=== PATIENT | male | born 1945 | race Caucasian/White ===

== ENCOUNTER → 2017-09-18 13:53 | Outpatient (CLI) | payer MEDICARE, SELFPAY ==
[2017-09-22 20:18] LABS: Chromium, Plasma 0.7 mcg/L (< 1.3)
== END ==
PROVIDERS: Family Provider Family Medicine; PCP Family Medicine; Visit Provider Orthopaedic Surgery
DX: Z96.642 Presence of left artificial hip joint (principal); Z96.643 Presence of artificial hip joint, bilateral
CPT/HCPCS: 36415; 82495; 83018

== ENCOUNTER → 2017-09-24 14:41 | Outpatient (CLI) | payer MEDICARE, SELFPAY ==
--- NOTE | 2017-09-24 | DI.MRI.S_ITS ---
PROCEDURE: MR HIP LT WO CON INDICATIONS: Left hip pain TECHNIQUE: Noncontrast coronal T1 spin echo and STIR through the bony pelvis. Coronal and axial T2 fast spin echo with fat saturation, sagittal T1 spin echo, and oblique axial T2 fast spin echo with fat saturation through the hip. COMPARISON: [facility] [place], [place], XR PELVIS WITH BILATERAL LATERAL HIPS, 09/18/2017, 13:17. FINDINGS: Image quality: Suboptimal due to bilateral hip arthroplasty artifact. This is despite metallic artifact reduction pulse sequences. There is lower lumbar degenerative disc disease. No definite periarticular fluid collections are seen. No periarticular solid appearing foci. The synovium is not well visualized due to hardware artifact, however probably within normal limits on the right although completely obscured on the left. No definite marrow signal abnormality is seen. Muscle signal intensity within normal limits. Sacroiliac joints and pubis symphysis within normal limits. The bladder is unremarkable. Penile prosthesis, and associated intrapelvic reservoir. IMPRESSION: Limited evaluation due to severe hardware artifacts despite metallic artifact reduction pulse sequences. No definite periarticular solid or cystic lesion. The synovium is completely obscured. No definite abnormal adjacent marrow signal changes on T1 weighted pulse sequences. Dictated by: Alex Negrete M.D. on 09/24/2017 at 16:10 Approved by: Alex Negrete M.D. on 09/24/2017 at 16:25
== END ==
PROVIDERS: Family Provider Family Medicine; PCP Family Medicine; Visit Provider Orthopaedic Surgery
DX: M25.552 Pain in left hip (principal)
CPT/HCPCS: 73721

== ENCOUNTER → 2022-07-23 12:06 | Outpatient (CLI) | payer MEDICARE, OTHER, SELFPAY ==
--- NOTE | 2022-07-23 | DI.ECHO.S_ITS ---
[place] +---------+ [facility] +---------+ : : [address] : : : : [id number] : : : : Phone: [phone]+ Echocardiogram Report + + :Name: BARBARA LAURENT Study Date: 07/23/2022 Height: 72 in : :[facility] ReadingLocation: Weight: 320 lb : : Gender: Male BSA: 2.6 m2 : :: 1945 Age: 77 yrs BP: 148/66 mmHg: :Reason For Study: CHRONIC DIASTOLIC CONGESTIVE HEART FAILURE HR: 52 : :Ordering Physician: KONSTANTIN, : :YENIFER Performed By: SERGEY RUSSELL : :Referring: YENIFER HOFFMAN : + + Interpretation Summary 1) Mildly dilated left ventricle with normal systolic function (EF 55-60%). 2) There are no obvious focal wall motion abnormalities noted but poor endocardial definition reduces the sensitivity for the detection of such. 3) Mildly enlarged right ventricle with normal function. 4) No significant valvular abnormalities. 5) The right ventricular systolic pressure is estimated to be at least 44 mmHg based on an estimated right atrial pressure of 8 mm Hg. 6) No prior Echo available for comparison. Procedure: A two-dimensional transthoracic echocardiogram with color flow and Doppler was performed. The study quality was technically adequate. There is no prior echocardiogram noted for this patient. The patient was in normal sinus rhythm during the exam. The patient had frequent PVCs during the exam. Left Ventricle: The left ventricle is mildly dilated. There is normal left ventricular wall thickness. Left ventricular systolic function is normal. The ejection fraction is estimated to be 55-60%. There are no obvious focal wall motion abnormalities noted but poor endocardial definition reduces the sensitivity for the detection of such. Diastolic parameters suggest a relaxation abnormality of the left ventricle, consistent with probable normal filling pressures. Right Ventricle: The right ventricle is mildly dilated. The right ventricular systolic function is normal. Atria: Both atria are moderately dilated. There is no Doppler evidence for an interatrial shunt. Mitral Valve: Calcified mitral apparatus. The mitral valve leaflets appear mildly thickened, but open well. There is mild mitral regurgitation. Aortic Valve: The aortic valve is not well visualized. The aortic valve is mildly calcified. There is no aortic valve stenosis. No aortic regurgitation is present. Tricuspid Valve: The tricuspid valve is normal. There is mild tricuspid regurgitation. The right ventricular systolic pressure is estimated to be at least 44 mmHg based on an estimated right atrial pressure of 8 mm Hg. Pulmonic Valve: The pulmonic valve is not well visualized. There is no pulmonic valvular regurgitation. Great Vessels: The aortic root is normal size. The ascending aorta could not be visualized. The IVC is dilated (diameter is greater than 2.1 cm) yet it collapses greater than 50% with a sniff. This suggests a right atrial pressure of 8 mm Hg. Pericardium/ Pleura There is an anterior echo-free space consistent with a fat pad. There is no pleural effusion. MMode/2D Measurements & Calculations LVIDd: 5.7 cm LVOT diam: 2.1 cm LVIDs: 4.2 cm Ao root diam: 3.2 cm FS: 26.7 % IVSd: 0.90 cm LVPWd: 1.2 cm LV emmanuel. diameter/BSA (cm/m^2): 2.2 LV sys. diameter/BSA (cm/m^2): 1.6 LA A2 area: 30.2 cm2 RA long axis: 6.0 cm LA A4 area: 28.6 cm2 RA area: 25.4 cm2 LA length (vol): 6.5 cm RA vol: 91.5 ml LA vol: 111.7 ml RA : 35.2 ml/m2 LA vol index: 43.0 ml/m2 IVC diam: 2.3 cm TAPSE: 2.2 cm Doppler Measurements & Calculations Ao V2 max: 144.8 cm/sec LVOT Max Kashif: 107.1 cm/sec Ao V2 mean: 112.3 cm/sec LV V1 max P.6 mmHg Ao max P.4 mmHg LV V1 VTI: 26.1 cm Ao mean P.3 mmHg ANOOP(I,D): 2.8 cm2 Ao V2 VTI: 33.8 cm ANOOP(V,D): 2.7 cm2 sev ratio: 0.77 ANOOP indexed to BSA (cm^2/m^2): 1.1 MV E max kashif: 82.7 cm/sec TR max kashif: 300.3 cm/sec MV A max kashif: 103.9 cm/sec TR max P.1 mmHg MV E/A: 0.80 PA V2 max: 89.8 cm/sec Med Peak E' Kashif: 5.7 cm/sec PA V2 mean: 66.2 cm/sec E/E' med: 14.5 PA mean P.9 mmHg Lat Peak E' Kashif: 7.8 cm/sec PA pr(Accel): 41.3 mmHg E/E' lat: 10.7 E/e' average: 12.6 MV dec time: 0.29 sec SV(OT): 94.6 ml Reading Physician:04:46 PM
== END ==
PROVIDERS: Family Provider Family Medicine; PCP Family Medicine; Referring Provider Internal Medicine Cardiovascular Disease; Visit Provider Internal Medicine Cardiovascular Disease
DX: I50.32 Chronic diastolic (congestive) heart failure (principal); R06.09 Other forms of dyspnea; I08.1 Rheumatic disorders of both mitral and tricuspid valves
CPT/HCPCS: 93306

== ENCOUNTER 2022-08-08 09:40 | Inpatient (IN) | payer MEDICARE, OTHER, SELFPAY ==
[2022-08-08] VITALS (104 sets, daily range): BP systolic 132–212; BP diastolic 61–89; PULSE 50–92; RESP 9–27; TEMP 36.9; O2SAT 88–98; BMI 42.2
--- NOTE | 2022-08-08 09:48 | ED_ITS ---
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 Tablet) 10 mg PO Sa@0900 [facility] Last Admin: 08/10/22 12:03 Dose: 10 mg Documented By: JEAN Metoprolol Tartrate (Metoprolol Ir 25 Mg Tablet) 25 mg PO DAILY [facility] Last Admin: 08/12/22 09:07 Dose: Not Given Documented By: Admin: 08/11/22 16:03 Dose: Not Given Documented By: Admin: 08/10/22 08:49 Dose: 25 mg Documented By: Admin: 08/09/22 08:15 Dose: 25 mg Documented By: JEAN Naloxone HCl (Naloxone 0.4 Mg/Ml Vial) 0.2 mg IV Q2MIN PRN PRN Reason: Opiate Reversal (Montelukast 4 Mg (Tablet,Chewable)) 4 mg PO DAILY [facility] Last Admin: 08/12/22 09:06 Dose: Not Given Documented By: Admin: 08/11/22 10:04 Dose: Not Given Documented By: Admin: 08/10/22 08:39 Dose: Not Given Documented By: Admin: 08/09/22 08:16 Dose: Not Given Documented By: JEAN Ondansetron HCl (Ondansetron 4 Mg/2 Ml Inj) 4 mg IV Q8HR PRN PRN Reason: Nausea And Vomiting Oxycodone HCl (Oxycodone Ir 10 Mg Tablet) 20 mg PO Q4HR PRN PRN Reason: Pain, Severe (7-10) Last Admin: 08/12/22 03:29 Dose: 20 mg Documented By: Admin: 08/11/22 22:31 Dose: 20 mg Documented By: NADER Oxycodone HCl (Oxycodone Er 20 Mg Tab) 40 mg PO BID [facility] Last Admin: 08/12/22 10:02 Dose: 40 mg Documented By: MERCY Polyethylene Glycol (Polyethylene Glycol 3350 17 Gm Powd.Pack) 17 gm PO DAILY [facility] Last Admin: 08/12/22 08:46 Dose: 17 gm Documented By: Admin: 08/11/22 09:35 Dose: 17 gm Documented By: Admin: 08/10/22 08:49 Dose: 17 gm Documented By: Admin: 08/09/22 08:15 Dose: 17 gm Documented By: JAEN Sennosides (Sennosides 8.6 Mg Tablet) 17.2 mg PO BEDTIME [facility] Last Admin: 08/11/22 22:24 Dose: 17.2 mg Documented By: Admin: 08/10/22 21:17 Dose: 17.2 mg Documented By: Admin: 08/09/22 20:36 Dose: 17.2 mg Documented By: Admin: 08/08/22 21:38 Dose: 17.2 mg Documented By: AZUCENA Sodium Chloride (Sodium Chloride 0.9% Flush) 10 ml IV PRN PRN PRN Reason: Flush Sodium Chloride (Sodium Chloride 0.9% Flush) 10 ml IV BID [facility] Last Admin: 08/12/22 10:07 Dose: 10 ml Documented By: Admin: 08/11/22 22:24 Dose: 10 ml Documented By: Admin: 08/11/22 17:04 Dose: Not Given Documented By: BETINA Spironolactone (Spironolactone 25 Mg Tablet) 12.5 mg PO DAILY [facility] Last Admin: 08/12/22 08:42 Dose: 12.5 mg Documented By: Admin: 08/11/22 09:36 Dose: 12.5 mg Documented By: MERCY Discontinued Medications Acetaminophen (Acetaminophen 325 Mg Tablet) 650 mg PO Q6H PRN PRN Reason: Fever/Mild Pain (1-3) Last Admin: 08/11/22 10:14 Dose: 650 mg Documented By: Admin: 08/11/22 04:58 Dose: 650 mg Documented By: Admin: 08/09/22 20:36 Dose: 650 mg Documented By: Admin: 08/08/22 21:37 Dose: 650 mg Documented By: AZUCENA Enoxaparin Sodium (Enoxaparin 40 Mg/0.4 Ml Syringe) 40 mg SUBCUT DAILY [facility] Last Admin: 08/09/22 08:15 Dose: 40 mg Documented By: JEAN Hydromorphone HCl (Hydromorphone 0.5 Mg Inj) 0.5 mg IV NOW ONE Stop: 08/08/22 09:54 Last Admin: 08/08/22 10:02 Dose: 0.5 mg Documented By: PETR Hydromorphone HCl (Hydromorphone 0.5 Mg Inj) 0.5 mg IV NOW ONE Stop: 08/08/22 14:12 Last Admin: 08/08/22 14:20 Dose: 0.5 mg Documented By: ANCELMO Hydromorphone HCl (Hydromorphone 0.5 Mg Inj) 0.5 mg IV NOW ONE Stop: 08/08/22 18:31 Last Admin: 08/08/22 18:35 Dose: 0.5 mg Documented By: ANCELMO Hydromorphone HCl (Hydromorphone 0.5 Mg Inj) 0.5 mg IV Q4H PRN PRN Reason: Pain, Severe (7-10) Last Admin: 08/09/22 10:26 Dose: 0.5 mg Documented By: Admin: 08/09/22 06:28 Dose: 0.5 mg Documented By: Admin: 08/08/22 22:33 Dose: 0.5 mg Documented By: Hydromorphone HCl (Hydromorphone 0.5 Mg Inj) 0.5 mg IV Q3H PRN PRN Reason: Pain, Severe (7-10) Last Admin: 08/11/22 14:44 Dose: 0.5 mg Documented By: Admin: 08/11/22 05:30 Dose: 0.5 mg Documented By: Admin: 08/10/22 23:18 Dose: 0.5 mg Documented By: Admin: 08/10/22 11:59 Dose: 0.5 mg Documented By: Admin: 08/10/22 08:36 Dose: 0.5 mg Documented By: Admin: 08/10/22 00:55 Dose: 0.5 mg Documented By: Admin: 08/09/22 20:38 Dose: 0.5 mg Documented By: Admin: 08/09/22 14:12 Dose: 0.5 mg Documented By: JEAN Ceftriaxone Sodium 1,000 mg/ (Sodium Chloride) 100 mls @ 200 mls/hr IV Q24H [place] Stop: 08/15/22 06:14 Last Admin: 08/10/22 05:50 Dose: 200 mls/hr Documented By: Infusion: 08/09/22 07:45 Dose: 0 mls/hr Documented By: Admin: 08/09/22 06:28 Dose: 200 mls/hr Documented By: Magnesium Sulfate (Magnesium Sulfate) 2 gm in 50 mls @ 25 mls/hr IV NOW ONE Stop: 08/09/22 15:49 Last Infusion: 08/09/22 17:14 Dose: 0 mls/hr Documented By: JEAN Co-signed By: EDE Admin: 08/09/22 14:13 Dose: 25 mls/hr Documented By: JEAN Co-signed By: EDE Ibuprofen (Ibuprofen 600 Mg Tablet) 600 mg PO Q6H PRN PRN Reason: Fever/Mild Pain (1-3) Last Admin: 08/09/22 01:01 Dose: 600 mg Documented By: Ibuprofen (Ibuprofen 600 Mg Tablet) 600 mg PO Q6H [place]O Last Admin: 08/10/22 11:58 Dose: 600 mg Documented By: Admin: 08/10/22 05:49 Dose: 600 mg Documented By: Admin: 08/09/22 23:45 Dose: 600 mg Documented By: Admin: 08/09/22 17:30 Dose: 600 mg Documented By: Admin: 08/09/22 10:30 Dose: 600 mg Documented By: Admin: 08/09/22 05:52 Dose: Not Given Documented By: Ondansetron HCl (Ondansetron 4 Mg/2 Ml Inj) 4 mg IV NOW ONE Stop: 08/08/22 09:54 Last Admin: 08/08/22 10:02 Dose: 4 mg Documented By: PETR Oxycodone HCl (Oxycodone Ir 5 Mg Tablet) 5 mg PO Q3H PRN PRN Reason: Pain, Moderate (4-6) Last Admin: 08/11/22 10:11 Dose: 5 mg Documented By: Admin: 08/10/22 05:50 Dose: 5 mg Documented By: SANDIE Oxycodone HCl (Oxycodone Ir 10 Mg Tablet) 10 mg PO Q3H PRN PRN Reason: Pain, Severe (7-10) Last Admin: 08/11/22 12:47 Dose: 10 mg Documented By: Admin: 08/11/22 04:58 Dose: 10 mg Documented By: Admin: 08/10/22 21:22 Dose: 10 mg Documented By: Admin: 08/10/22 16:02 Dose: 10 mg Documented By: Admin: 08/10/22 08:53 Dose: 10 mg Documented By: Admin: 08/09/22 23:03 Dose: 10 mg Documented By: Admin: 08/09/22 07:40 Dose: 10 mg Documented By: Admin: 08/09/22 01:02 Dose: 10 mg Documented By: Admin: 08/08/22 21:38 Dose: 10 mg Documented By: AZUCENA Oxycodone HCl (Oxycodone Ir 10 Mg Tablet) 20 mg PO Q3H PRN PRN Reason: Pain, Severe (7-10) Vital Signs Vital signs: Vital Signs - 8 hr 08/08/22 12:00 08/08/22 12:01 08/08/22 12:01 Pulse Rate 67 68 Respiratory Rate 16 17 Blood Pressure 189/79 H Pulse Oximetry 94 93 Oxygen Delivery Method Nasal Cannula Nasal Cannula Oxygen Flow Rate 2 2 08/08/22 12:15 08/08/22 12:29 08/08/22 12:29 Pulse Rate 71 70 Respiratory Rate 18 19 Blood Pressure 165/71 H Pulse Oximetry 94 95 Oxygen Delivery Method Nasal Cannula Nasal Cannula Oxygen Flow Rate 2 2 08/08/22 12:30 08/08/22 12:30 08/08/22 12:45 Pulse Rate 71 69 Respiratory Rate 22 24 Blood Pressure 176/76 H Pulse Oximetry 96 94 Oxygen Delivery Method Oxygen Flow Rate 08/08/22 13:00 08/08/22 13:01 08/08/22 13:01 Pulse Rate 72 71 Respiratory Rate 18 19 Blood Pressure 187/79 H Pulse Oximetry 95 94 Oxygen Delivery Method Oxygen Flow Rate 08/08/22 13:15 08/08/22 13:30 08/08/22 13:31 Pulse Rate 69 68 67 Respiratory Rate 19 17 17 Blood Pressure Pulse Oximetry 93 96 96 Oxygen Delivery Method Oxygen Flow Rate 08/08/22 13:31 08/08/22 13:45 08/08/22 14:00 Pulse Rate 65 64 Respiratory Rate 17 17 Blood Pressure 153/67 H Pulse Oximetry 94 94 Oxygen Delivery Method Oxygen Flow Rate 08/08/22 14:01 08/08/22 14:01 08/08/22 14:15 Pulse Rate 67 69 Respiratory Rate 20 18 Blood Pressure 141/63 H Pulse Oximetry 93 95 Oxygen Delivery Method Oxygen Flow Rate 08/08/22 14:30 08/08/22 14:31 08/08/22 14:31 Pulse Rate 64 65 Respiratory Rate 14 11 L Blood Pressure 148/69 H Pulse Oximetry 94 93 Oxygen Delivery Method Nasal Cannula Oxygen Flow Rate 2 08/08/22 14:45 08/08/22 14:46 08/08/22 14:46 Pulse Rate 65 69 Respiratory Rate 16 Blood Pressure 157/70 H Pulse Oximetry 95 95 Oxygen Delivery Method Nasal Cannula Nasal Cannula Oxygen Flow Rate 2 2 08/08/22 15:00 08/08/22 15:01 08/08/22 15:01 Pulse Rate 65 66 Respiratory Rate 15 Blood Pressure 162/69 H Pulse Oximetry 95 95 Oxygen Delivery Method Nasal Cannula Nasal Cannula Oxygen Flow Rate 2 2 08/08/22 15:15 08/08/22 15:30 08/08/22 15:31 Pulse Rate 92 H 73 Respiratory Rate 12 Blood Pressure 161/71 H Pulse Oximetry 92 Oxygen Delivery Method Room Air Oxygen Flow Rate 08/08/22 15:31 08/08/22 15:45 08/08/22 15:46 Pulse Rate 73 70 71 Respiratory Rate 9 L 11 L 14 Blood Pressure Pulse Oximetry 93 91 90 L Oxygen Delivery Method Room Air Room Air Room Air Oxygen Flow Rate 08/08/22 15:46 08/08/22 15:50 08/08/22 15:55 Pulse Rate 70 70 Respiratory Rate 16 19 Blood Pressure 150/72 H Pulse Oximetry 88 L 88 L Oxygen Delivery Method Room Air Room Air Oxygen Flow Rate 08/08/22 16:00 08/08/22 16:01 08/08/22 16:01 Pulse Rate 68 67 Respiratory Rate Blood Pressure 150/70 H Pulse Oximetry 95 96 Oxygen Delivery Method Nasal Cannula Nasal Cannula Oxygen Flow Rate 2 2 08/08/22 16:05 08/08/22 16:10 08/08/22 16:15 Pulse Rate 67 66 Respiratory Rate Blood Pressure 142/63 H Pulse Oximetry 96 97 Oxygen Delivery Method Nasal Cannula Nasal Cannula Oxygen Flow Rate 2 2 08/08/22 16:15 08/08/22 16:20 08/08/22 16:25 Pulse Rate 68 64 66 Respiratory Rate Blood Pressure Pulse Oximetry 96 94 96 Oxygen Delivery Method Nasal Cannula Nasal Cannula Nasal Cannula Oxygen Flow Rate 2 2 2 08/08/22 16:30 08/08/22 16:30 08/08/22 16:35 Pulse Rate 64 69 Respiratory Rate 16 Blood Pressure 140/62 Pulse Oximetry 94 97 Oxygen Delivery Method Nasal Cannula Nasal Cannula Oxygen Flow Rate 2 2 08/08/22 16:40 08/08/22 16:45 08/08/22 16:45 Pulse Rate 65 64 Respiratory Rate 15 15 Blood Pressure 134/63 Pulse Oximetry 96 95 Oxygen Delivery Method Nasal Cannula Nasal Cannula Oxygen Flow Rate 2 2 08/08/22 16:50 08/08/22 16:55 08/08/22 17:00 Pulse Rate 65 65 Respiratory Rate 17 14 Blood Pressure 144/65 H Pulse Oximetry 96 96 Oxygen Delivery Method Oxygen Flow Rate 08/08/22 17:00 08/08/22 17:05 08/08/22 17:10 Pulse Rate 67 67 65 Respiratory Rate 15 17 15 Blood Pressure Pulse Oximetry 97 97 97 Oxygen Delivery Method Oxygen Flow Rate 08/08/22 17:15 08/08/22 17:15 08/08/22 17:20 Pulse Rate 64 64 Respiratory Rate 13 15 Blood Pressure 136/63 Pulse Oximetry 96 96 Oxygen Delivery Method Oxygen Flow Rate 08/08/22 17:25 08/08/22 17:30 08/08/22 17:30 Pulse Rate 65 63 Respiratory Rate 17 13 Blood Pressure 132/61 Pulse Oximetry 97 96 Oxygen Delivery Method Oxygen Flow Rate 08/08/22 17:35 08/08/22 17:40 08/08/22 17:45 Pulse Rate 68 74 Respiratory Rate 19 22 Blood Pressure 141/64 H Pulse Oximetry 97 96 Oxygen Delivery Method Oxygen Flow Rate 08/08/22 17:45 08/08/22 17:50 08/08/22 17:55 Pulse Rate 64 63 65 Respiratory Rate 16 14 16 Blood Pressure Pulse Oximetry 96 96 96 Oxygen Delivery Method Oxygen Flow Rate 08/08/22 18:00 08/08/22 18:00 08/08/22 18:05 Pulse Rate 63 63 Respiratory Rate 16 16 Blood Pressure 134/63 Pulse Oximetry 95 96 Oxygen Delivery Method Oxygen Flow Rate Medical Decision Making <Leodan Pierce, DO - Last Filed: 08/12/22 10:10> Lab Data 08/10/22 05:20 08/10/22 05:20 Labs: Lab Results 08/08/22 08/08/22 08/08/22 Range/Units 09:50 09:50 09:50 WBC 13.6 H (4.5-11.0) X10^3/uL RBC 4.12 L (4.5-5.9) X10^6/uL Hgb 13.8 (13.5-17.5) g/dL Hct 40.2 L (41-53) % MCV 97.6 (80-100) fL MCH 33.5 (26-34) PG MCHC 34.3 (30-36) % RDW 14.2 (11.6-14.8) % Plt Count 245 (150-400) X10^3/uL Neut % (Auto) 63.1 (50-75) % Lymph % (Auto) 25.4 (25-40) % [place] % (Auto) 7.7 (3-14) % Eos % (Auto) 2.9 (2-4) % Baso % (Auto) 0.9 (0-2) % Neut # (Auto) 8600 H (9005-1847) /uL Lymph # (Auto) 3400 (5955-2498) /uL [place] # (Auto) 1000 H (0-900) /uL Eos # (Auto) 400 (0-450) /uL Baso # (Auto) 100 (0-100) /uL Sodium 137 (137-145) mmol/L Potassium 4.3 (3.4-5.1) mmol/L Chloride 98 (98-107) mmol/L Carbon Dioxide 31 (22-32) mmol/L BUN 15 (9-20) mg/dL Creatinine 0.70 (0.66-1.25) mg/dL Estimated GFR > 60 (>60) mL/min BUN/Creatinine Ratio 21.4 (6-22) Glucose 172 H (80-110) mg/dL Lactate 3.0 H (0.7-2.1) mmol/L Calcium 8.9 (8.4-10.2) mg/dL Magnesium 1.8 (1.6-2.3) mg/dL Total Bilirubin 1.7 H (0.2-1.3) mg/dL AST 46 (17-59) IU/L ALT 34 (<50) IU/L Alkaline Phosphatase 42 (38-126) U/L Total Creatine Kinase 181 H (55-170) U/L CK-MB (CK-2) 0.94 (<2.37) ng/mL CK-MB (CK-2) Rel Index 0.5 L (1.5-5.0) % Troponin I < 0.012 (0.01-0.034) ng/mL Total Protein 7.8 (6.3-8.2) g/dL Albumin 4.3 (3.5-5.0) g/dL Globulin 3.5 (1.7-4.1) g/dL Albumin/Globulin Ratio 1.2 (1.0-2.8) Lipase 42 (23-300) U/L Urine RBC (0-5/HPF) Urine WBC (0-5/HPF) Urine Bacteria (None) 08/08/22 08/08/22 Range/Units 12:30 15:30 WBC (4.5-11.0) X10^3/uL RBC (4.5-5.9) X10^6/uL Hgb (13.5-17.5) g/dL Hct (41-53) % MCV (80-100) fL MCH (26-34) PG MCHC (30-36) % RDW (11.6-14.8) % Plt Count (150-400) X10^3/uL Neut % (Auto) (50-75) % Lymph % (Auto) (25-40) % [place] % (Auto) (3-14) % Eos % (Auto) (2-4) % Baso % (Auto) (0-2) % Neut # (Auto) (0436-5296) /uL Lymph # (Auto) (4577-2542) /uL [place] # (Auto) (0-900) /uL Eos # (Auto) (0-450) /uL Baso # (Auto) (0-100) /uL Sodium (137-145) mmol/L Potassium (3.4-5.1) mmol/L Chloride (98-107) mmol/L Carbon Dioxide (22-32) mmol/L BUN (9-20) mg/dL Creatinine (0.66-1.25) mg/dL Estimated GFR (>60) mL/min BUN/Creatinine Ratio (6-22) Glucose (80-110) mg/dL Lactate 1.3 (0.7-2.1) mmol/L Calcium (8.4-10.2) mg/dL Magnesium (1.6-2.3) mg/dL Total Bilirubin (0.2-1.3) mg/dL AST (17-59) IU/L ALT (<50) IU/L Alkaline Phosphatase (38-126) U/L Total Creatine Kinase (55-170) U/L CK-MB (CK-2) (<2.37) ng/mL CK-MB (CK-2) Rel Index (1.5-5.0) % Troponin I (0.01-0.034) ng/mL Total Protein (6.3-8.2) g/dL Albumin (3.5-5.0) g/dL Globulin (1.7-4.1) g/dL Albumin/Globulin Ratio (1.0-2.8) Lipase (23-300) U/L Urine RBC 0-1/hpf (0-5/HPF) Urine WBC 0-1/hpf (0-5/HPF) Urine Bacteria Moderate (10-30) H (None) Point of Care Testing Glucose POC 175 Urine Dip Bedside Urine Glucose Negative Bedside Urine Bilirubin - Negative Bedside Urine Ketone - Negative Urine Specific Cordell 1.015 Bedside Urine Occult Blood +/- Bedside Urine pH 6.0 Bedside Urine Protein +/- 15 Bedside Urine Urobilinogen - Negative Bedside Urine Nitrite + Positive Bedside Urine Leukocytes - Negative Esterase Point of care testing: Point of Care Testing Glucose POC 175 Urine Dip Bedside Urine Glucose Negative Bedside Urine Bilirubin - Negative Bedside Urine Ketone - Negative Urine Specific Cordell 1.015 Bedside Urine Occult Blood +/- Bedside Urine pH 6.0 Bedside Urine Protein +/- 15 Bedside Urine Urobilinogen - Negative Bedside Urine Nitrite + Positive Bedside Urine Leukocytes - Negative Esterase <Alyx Carroll MD - Last Filed: 08/08/22 20:12> Lab Data Labs: Lab Results 08/08/22 08/08/22 08/08/22 Range/Units 09:50 09:50 09:50 WBC 13.6 H (4.5-11.0) X10^3/uL RBC 4.12 L (4.5-5.9) X10^6/uL Hgb 13.8 (13.5-17.5) g/dL Hct 40.2 L (41-53) % MCV 97.6 (80-100) fL MCH 33.5 (26-34) PG MCHC 34.3 (30-36) % RDW 14.2 (11.6-14.8) % Plt Count 245 (150-400) X10^3/uL Neut % (Auto) 63.1 (50-75) % Lymph % (Auto) 25.4 (25-40) % [place] % (Auto) 7.7 (3-14) % Eos % (Auto) 2.9 (2-4) % Baso % (Auto) 0.9 (0-2) % Neut # (Auto) 8600 H (3113-6702) /uL Lymph # (Auto) 3400 (8648-2827) /uL [place] # (Auto) 1000 H (0-900) /uL Eos # (Auto) 400 (0-450) /uL Baso # (Auto) 100 (0-100) /uL Sodium 137 (137-145) mmol/L Potassium 4.3 (3.4-5.1) mmol/L Chloride 98 (98-107) mmol/L Carbon Dioxide 31 (22-32) mmol/L BUN 15 (9-20) mg/dL Creatinine 0.70 (0.66-1.25) mg/dL Estimated GFR > 60 (>60) mL/min BUN/Creatinine Ratio 21.4 (6-22) Glucose 172 H (80-110) mg/dL Lactate 3.0 H (0.7-2.1) mmol/L Calcium 8.9 (8.4-10.2) mg/dL Magnesium 1.8 (1.6-2.3) mg/dL Total Bilirubin 1.7 H (0.2-1.3) mg/dL AST 46 (17-59) IU/L ALT 34 (<50) IU/L Alkaline Phosphatase 42 (38-126) U/L Total Creatine Kinase 181 H (55-170) U/L CK-MB (CK-2) 0.94 (<2.37) ng/mL CK-MB (CK-2) Rel Index 0.5 L (1.5-5.0) % Troponin I < 0.012 (0.01-0.034) ng/mL Total Protein 7.8 (6.3-8.2) g/dL Albumin 4.3 (3.5-5.0) g/dL Globulin 3.5 (1.7-4.1) g/dL Albumin/Globulin Ratio 1.2 (1.0-2.8) Lipase 42 (23-300) U/L Urine RBC (0-5/HPF) Urine WBC (0-5/HPF) Urine Bacteria (None) 08/08/22 08/08/22 Range/Units 12:30 15:30 WBC (4.5-11.0) X10^3/uL RBC (4.5-5.9) X10^6/uL Hgb (13.5-17.5) g/dL Hct (41-53) % MCV (80-100) fL MCH (26-34) PG MCHC (30-36) % RDW (11.6-14.8) % Plt Count (150-400) X10^3/uL Neut % (Auto) (50-75) % Lymph % (Auto) (25-40) % [place] % (Auto) (3-14) % Eos % (Auto) (2-4) % Baso % (Auto) (0-2) % Neut # (Auto) (1175-1367) /uL Lymph # (Auto) (1195-1119) /uL [place] # (Auto) (0-900) /uL Eos # (Auto) (0-450) /uL Baso # (Auto) (0-100) /uL Sodium (137-145) mmol/L Potassium (3.4-5.1) mmol/L Chloride (98-107) mmol/L Carbon Dioxide (22-32) mmol/L BUN (9-20) mg/dL Creatinine (0.66-1.25) mg/dL Estimated GFR (>60) mL/min BUN/Creatinine Ratio (6-22) Glucose (80-110) mg/dL Lactate 1.3 (0.7-2.1) mmol/L Calcium (8.4-10.2) mg/dL Magnesium (1.6-2.3) mg/dL Total Bilirubin (0.2-1.3) mg/dL AST (17-59) IU/L ALT (<50) IU/L Alkaline Phosphatase (38-126) U/L Total Creatine Kinase (55-170) U/L CK-MB (CK-2) (<2.37) ng/mL CK-MB (CK-2) Rel Index (1.5-5.0) % Troponin I (0.01-0.034) ng/mL Total Protein (6.3-8.2) g/dL Albumin (3.5-5.0) g/dL Globulin (1.7-4.1) g/dL Albumin/Globulin Ratio (1.0-2.8) Lipase (23-300) U/L Urine RBC 0-1/hpf (0-5/HPF) Urine WBC 0-1/hpf (0-5/HPF) Urine Bacteria Moderate (10-30) H (None) Point of Care Testing Glucose POC 175 Urine Dip Bedside Urine Glucose Negative Bedside Urine Bilirubin - Negative Bedside Urine Ketone - Negative Urine Specific Cordell 1.015 Bedside Urine Occult Blood +/- Bedside Urine pH 6.0 Bedside Urine Protein +/- 15 Bedside Urine Urobilinogen - Negative Bedside Urine Nitrite + Positive Bedside Urine Leukocytes - Negative Esterase Point of care testing: Point of Care Testing Glucose POC 175 Urine Dip Bedside Urine Glucose Negative Bedside Urine Bilirubin - Negative Bedside Urine Ketone - Negative Urine Specific Cordell 1.015 Bedside Urine Occult Blood +/- Bedside Urine pH 6.0 Bedside Urine Protein +/- 15 Bedside Urine Urobilinogen - Negative Bedside Urine Nitrite + Positive Bedside Urine Leukocytes - Negative Esterase MDM Narrative Medical decision making narrative: CC: Intractable back pain, upper thoracic pain, hypoxia Complicating co-morbidities: Trauma with a fall down an incline and 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 Full evaluation at [facility] at the time. Intractable pain since. Additional medical problems include hypertension, hyperlipidemia, prior [place], COPD, sleep apnea and diabetes Data collected from: patient Social determinants of health that may influence the patients condition: Age, independent living Medical records reviewed: Records from [facility] Emergency Department for 07/31/2022 are available and reviewed Differential considered: Pulmonary contusion, pneumothorax, intra-abdominal bleeding, undiagnosed fractures, intractable pain post trauma Exam documented above, pertinent findings include: Significant T12 pain on palpation. Bruising and contusion over the upper left scapula, hypoactive bowel tones and mild bowel distention Lab Test results independently reviewed as above. Pertinent findings: CBC is minimally remarkable, mild leukocytosis at 13.6 without left shift. No significant anemia Chemistries are unremarkable Initial lactic acid was 3 and is down to 1.3 with hydration (patient has been having difficulty drinking doing 2 pain control over the last couple of days) Troponin is unremarkable no evidence of acute coronary syndrome Independently reviewed EKG Sinus rhythm at a rate of 72. He is having frequent PVCs Normal intervals, normal axis, no acute ischemic changes Imaging studies independently reviewed: CT of the chest abdomen pelvis shows a new T12 superior endplate compression fracture that is stable. No rib fractures thoracic injury, hemopneumothorax Consultations: Physical therapy consult was obtained in the emergency department. He was able to walk with significant assistance in using 2 crutches but due to pain physical therapy felt that discharge home would be unsafe. Treatments: Pain control, oxygen 430pm PT eval: was able to get up and walk with tenderness and significant difficulty with ambulation but after 20 minutes of being up oxygen saturations off room air were down to 87%. Last dose of pain medication was 2 hours prior to this evaluation. Patient uses 1 cane at baseline currently needing 2 canes for significantly decreased ambulatory effort. Physical therapy recommendation is admission. Given the decreased oxygen saturation after significant thoracic trauma 48 hours ago probability of more significant pulmonary contusion that appreciated on initial CT scan is likely. He is not significantly anemic, he does have bacteria in his urine without urinary tract symptoms. White blood cell count is elevated at 13.6 with neutrophils that only 63.1%. Discussion: Over the course of his emergency room stay the patient continued to have hypoxic episodes down into the mid 80s. This did not appear to be related to narcotic administration. Clearly is not tolerating the pain from the compression fracture, likely developing ileus related to his overall pain, significant splinting and developing hypoxemia as well. At this point discharge home is not feasible and patient will be admitted for pain control, physical therapy and will need incentive spirometry, supplemental oxygen and aggressive bowel regimen to avoid obstipation. Care is discussed with hospitalist and patient will be admitted. Patient is very pleased with current plan. Discharge Plan Departure Patient Disposition: Admitted as Observation Clinical Impression: Trauma, Adynamic ileus, Hypoxia Compression fracture of T12 vertebra Qualifiers: Encounter type: initial encounter Qualified Code(s): S22.080A - Wedge compression fracture of T11-T12 vertebra, initial encounter for closed fracture Contusion of left scapula Qualifiers: Encounter type: initial encounter Qualified Code(s): S40.012A - Contusion of left shoulder, initial encounter Admit Date/Time: 08/08/22 19:51 Admit Provider: Ilan Mccall
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
[2022-08-08 10:01] LABS: Add Manual Diff / Slide Review NO; Basophils Absolute Auto 100 /uL (0-100); Basophils Percent Auto 0.9 % (0-2); Eosinophils Absolute Auto 400 /uL (0-450); Eosinophils Percent Auto 2.9 % (2-4); Hematocrit 40.2 % (41-53); Hemoglobin 13.8 g/dL (13.5-17.5); Lymphocytes Absolute Auto 3400 /uL (1100-4500); Lymphocytes Percent Auto 25.4 % (25-40); Mean Corpuscular HGB Conc 34.3 % (30-36); Mean Corpuscular Hemoglobin 33.5 PG (26-34); Mean Corpuscular Volume 97.6 fL (80-100); Monocytes Absolute Auto 1000 /uL (0-900); Monocytes Percent Auto 7.7 % (3-14); Neutrophils Absolute Auto 8600 /uL (1500-7000); Neutrophils Percent Auto 63.1 % (50-75); Platelet Count 245 X10^3/uL (150-400); Red Blood Cell Count 4.12 X10^6/uL (4.5-5.9); Red Cell Distribution Width 14.2 % (11.6-14.8); White Blood Cell Count 13.6 X10^3/uL (4.5-11.0)
[2022-08-08] MEDS: HYDROMORPHONE 0.5 MG INJ IV ×4 (10:02→22:33)
[2022-08-08] MEDS: ONDANSETRON 4 MG/2 ML INJ IV (10:02)
[2022-08-08 10:14] LABS: Alanine Aminotransferase 34 IU/L (<50); Albumin 4.3 g/dL (3.5-5.0); Albumin Globulin Ratio 1.2 (1.0-2.8); Alkaline Phosphatase 42 U/L (38-126); Aspartate Aminotransferase 46 IU/L (17-59); BUN Creatinine Ratio 21.4 (6-22); Bilirubin Total 1.7 mg/dL (0.2-1.3); Blood Urea Nitrogen 15 mg/dL (9-20); Calcium 8.9 mg/dL (8.4-10.2); Carbon Dioxide 31 mmol/L (22-32); Chloride 98 mmol/L (98-107); Creatine Kinase 181 U/L (55-170); Estimated Glomerular Filt Rate > 60 mL/min (>60); Globulin 3.5 g/dL (1.7-4.1); Glucose 172 mg/dL (80-110); Lipase 42 U/L (23-300); Magnesium 1.8 mg/dL (1.6-2.3); Potassium 4.3 mmol/L (3.4-5.1); Sodium 137 mmol/L (137-145); Total Protein 7.8 g/dL (6.3-8.2)
[2022-08-08 10:17] LABS: HEMOLYSIS 53 (0-50)
[2022-08-08 10:24] LABS: Troponin I < 0.012 ng/mL (0.01-0.034)
[2022-08-08 10:30] LABS: CKMB % Relative Index 0.5 % (1.5-5.0); Creatine Kinase MB 0.94 ng/mL (<2.37)
[2022-08-08 11:57] LABS: Reflexed Lactate in 2 Hours Y
[2022-08-08 12:51] LABS: Lactate 2HR (Lactic Acid Rflx) 1.3 mmol/L (0.7-2.1)
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
[2022-08-08 16:07] LABS: Bacteria Urine Moderate (10-30); RBC Urine 0-1/HPF (0-5/HPF); WBC Urine 0-1/HPF (0-5/HPF)
[2022-08-08] MEDS: ACETAMINOPHEN 325 MG TABLET 650 MG PO (21:37)
[2022-08-08] MEDS: DOCUSATE 100 MG CAPSULE PO (21:38)
[2022-08-08] MEDS: OXYCODONE IR 10 MG TABLET PO (21:38)
[2022-08-08] MEDS: SENNOSIDES 8.6 MG TABLET 17.2 MG PO (21:38)
[2022-08-09] VITALS (9 sets, daily range): BP systolic 126–142; BP diastolic 46–83; PULSE 46–73; RESP 14–20; TEMP 35.9–36.8; O2SAT 91–97
[2022-08-09] MEDS: IBUPROFEN 600 MG TABLET PO ×4 (01:01→23:45)
[2022-08-09] MEDS: OXYCODONE IR 10 MG TABLET PO ×3 (01:02→23:03)
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
[2022-08-09] MEDS: HYDROMORPHONE 0.5 MG INJ IV ×4 (06:28→20:38)
[2022-08-09] MEDS: cefTRIAXone 1,000 MG in SODIUM CHLORIDE 0.9% 100 ML 200 MG IV (06:28)
[2022-08-09] MEDS: ATORVASTATIN 20 MG TABLET PO (08:15)
[2022-08-09] MEDS: DOCUSATE 100 MG CAPSULE PO ×2 (08:15→20:36)
[2022-08-09] MEDS: METOPROLOL IR 25 MG TABLET PO (08:15)
[2022-08-09] MEDS: polyethylene glycoL 3350 17 GM POWD.PACK PO (08:15)
[2022-08-09] MEDS: AMLODIPINE 5 MG TABLET PO (08:15)
[2022-08-09] MEDS: ENOXAPARIN 40 MG/0.4 ML SYRINGE SUBCUT ×2 (08:15→20:46)
[2022-08-09 08:57] LABS: Add Manual Diff / Slide Review NO; Basophils Absolute Auto 0 /uL (0-100); Basophils Percent Auto 0.3 % (0-2); Eosinophils Absolute Auto 300 /uL (0-450); Eosinophils Percent Auto 2.5 % (2-4); Hematocrit 38.8 % (41-53); Hemoglobin 13.3 g/dL (13.5-17.5); Lymphocytes Absolute Auto 2600 /uL (1100-4500); Mean Corpuscular HGB Conc 34.2 % (30-36); Mean Corpuscular Hemoglobin 33.3 PG (26-34); Mean Corpuscular Volume 97.3 fL (80-100); Monocytes Absolute Auto 1000 /uL (0-900); Monocytes Percent Auto 8.5 % (3-14); Neutrophils Absolute Auto 7800 /uL (1500-7000); Neutrophils Percent Auto 66.7 % (50-75); Platelet Count 228 X10^3/uL (150-400); Red Blood Cell Count 3.99 X10^6/uL (4.5-5.9); Red Cell Distribution Width 14.2 % (11.6-14.8); White Blood Cell Count 11.7 X10^3/uL (4.5-11.0)
[2022-08-09 09:13] LABS: BUN Creatinine Ratio 26.8 (6-22); Blood Urea Nitrogen 19 mg/dL (9-20); Calcium 8.5 mg/dL (8.4-10.2); Carbon Dioxide 33 mmol/L (22-32); Chloride 95 mmol/L (98-107); Estimated Glomerular Filt Rate > 60 mL/min (>60); Glucose 179 mg/dL (80-110); HEMOLYSIS < 15 (0-50); Potassium 4.4 mmol/L (3.4-5.1); Sodium 136 mmol/L (137-145)
[2022-08-09] MEDS: INSULIN LISPRO 100 UNIT/ML 3ML VIAL SUBCUT (11:38)
--- NOTE | 2022-08-09 12:33 | PT.IPTN ---
Physical Therapy Treatment Note M2 PT-IP Current Condition Start: 08/08/22 15:34 Freq: Status: Active Protocol: Document 08/08/22 15:34 ES (Rec: 08/08/22 15:57 ES [id number]) Physical Therapy Current Condition Current Condition Evaluation Date 08/08/22 Treatment Diagnosis Severe back pain Onset Date 08/06/22 M3 PT-IP Subjective Start: 08/08/22 15:34 Freq: Status: Active Protocol: Document 08/09/22 12:22 ES (Rec: 08/09/22 12:33 ES [id number]) Subjective Physical Therapy Visit Type Type Treatment Note Visit Start Time 11:06 Visit Stop Time 11:26 Total Visit Minutes 20 Number of VALVE GRINDER Visits 0 Physical Therapy Visit Comments Patient Comments Patient up in recliner. Patient reported the oxycodone didn't do much for the pain, but the dilaudid is working well and he received a dose prior to PT treatment. Patient agreeable to get up with PT, and requested to get back to bed at end of treatment. Therapy Pain Assessment Pain When Pain Assessed During Mobility Pain Present Pain Present Pain Reported Location Lower back Intensity 5 Scale Used Numeric (0 - 10) Description With Movement Pain Management Techniques Re-positioning,Timing of Activity with Medications M4 PT-IP Mobility and Gait Start: 08/08/22 15:34 Freq: Status: Active Protocol: Document 08/09/22 12:22 ES (Rec: 08/09/22 12:33 ES [id number]) PT-Bed Mobility Assessment Rolling Type of Rolling Log Rolling Level of Assist Minimal Assistance Sit to Supine Sit to Supine Minimal Assistance,Head of Bed Elevated,Bedrails Scooting Scooting Up and Down in Bed Independent PT-Transfer Assessment Sit to and From Stand Sit to and from Stand Standby Assistance,Use of Upper Extremities Equipment Transfer Assistive Device Gait Belt,Straight Cane Orthotic/Prosthetic Devices or Brace: No Transfers Transfer Destination Bed Transfer Technique Stand Step Pivot Transfer Ability Level of Assist Standby Assistance,Use of Upper Extremities Comments Mobility Comments Required extra time to complete each task due to pain . Used B canes per patient preference. Gait Assessment Gait Gait Assistance Required: Standby Assistance Distance (Feet) 35 Assistive Devices Assistive Device Gait Belt,Straight Cane Orthotic/Prosthetic Devices or Brace: No Gait Deviations General Gait Pattern Antalgic,Decreased Stride Length,Decreased Feet Clearance Factors Limiting Gait Function Factors Limiting Gait Function Pain Comments Gait Comments Ambulated with B canes per patient preference. Patient required extra time due to decreased prema and velocity 2/2 pain. SPO2 94% on 1L O2 during activity. Stair Climbing Assessment Comments Stair Climbing Comments Unable PT-Balance Assessment Sitting Balance and Reactions Static Sitting Balance Ability Good Dynamic Sitting Balance Ability Good Standing Balance and Reactions Static Standing Balance Ability Good Dynamic Standing Balance Ability Good Device Used B canes M5 PT-IP Objective Assessments Start: 08/08/22 15:34 Freq: Status: Active Protocol: Document 08/08/22 15:34 ES (Rec: 08/08/22 15:57 ES [id number]) Orientation Orientation/Cognition Level of Alertness Alert Orientation Name,Age,Birthday,Month,Date, Year,Day of Week,Place, Situation Language Function Ability No Deficits Noted Safety Awareness Understands Safety Issues Memory Description No Deficits Noted Gross Range of Motion Upper Extremity ROM Assessment Within Functional Limits Lower Extremity ROM Assessment Within Functional Limits Strength Upper Extremity Strength Assessment Within Functional Limits Lower Extremity Strength Assessment Within Functional Limits Comments Strength Comments Decreased core strength and ROM 2/2 back pain Coordination Assessment Gross Coordination Gross Coordination WNL Sensation Assessment Sensation Gross Sensation WNL M6 PT-IP Treatment Start: 08/08/22 15:34 Freq: Status: Active Protocol: Document 08/09/22 12:22 ES (Rec: 08/09/22 12:33 ES [id number]) Physical Therapy Treatment Education Education Provided Safety Other Treatments Other Treatment Performed Education on body mechanics during transfers and log rolling. M7 PT-IP Assessment and Plan Start: 08/08/22 15:34 Freq: Status: Active Protocol: Document 08/09/22 12:22 ES (Rec: 08/09/22 12:33 ES [id number]) PT Summary Assessment and Plan Potential Rehabilitation Potential Good Status of Condition at Evaluation Evolving Summary Impairments Pain,Bed Mobility,Transfers, Gait,Activity Tolerance Progress Towards Goals Progressing Toward Goals,Slow Progress due to Pain Assessment Summary Patient demonstrated mild improvement in activity tolerance though still ambulating less than household distances. His pain was slightly improved from yesterday. Will continue to benefit from PT to progress mobility including gait and stairs to be able to return home safely. Goals Bed Mobility Goal Independent Transfer Goal Independent,Cane Gait Goal Independent,Cane Gait Distance 50 ft Other Goals Patient will be able to ascend /descend 13 stairs with B canes with CGA. Days to Meet Goals 3 Frequency of Treatment Frequency Of Treatment Once a Day Treatment Plan Physical Therapy Treatment Plan Bed Mobility Training,Transfer Training,Gait Training, Discharge Planning, Neuromuscular Re-ed Other Recommendations and Next Treatment Progress gait, stairs Focus Recommendations To Nursing Amount of Assist Needed 1 Person Assist Discharge Recommendations PT Discharge Recommendations Home with Assistance Transportation Needs at Discharge Private Vehicle
--- NOTE | 2022-08-09 12:43 | DI.MRI.S_ITS ---
PROCEDURE: MR LUMBAR SPINE WO CON INDICATIONS: T12 fracture, unclear if acute or chronic TECHNIQUE: Noncontrast sagittal T1 spin echo and T2 fast echo, sagittal STIR, and T2 fast spin echo through the lumbar spine. In cases with scoliosis, additional coronal T2 fast spin echo may be performed. COMPARISON: [facility], CT, CT CHEST ABD PEL W CON, 08/08/2022, 10:24. FINDINGS: Image quality: Excellent. Alignment and Curvature: There is normal bony alignment. Bone Marrow: Marrow is of normal overall signal. A T12 compression deformity is again seen, with 20% loss of height anteriorly. There is mildly increased STIR signal seen within the superior aspect of this vertebral body. Spinal Cord: Conus medullaris terminates at the L1 level. Visualized cord demonstrates normal signal and size. Paraspinous Soft Tissues: No paravertebral masses. Within the posterior soft tissues, there is increased fluid seen posterior to the T12 level, which is best demonstrated on series 4, image 8. T11-T12: The disc height and disc signal are relatively well preserved. Mild disc bulge is seen, with a mild central disc protrusion. Bridging endplate osteophytes can be seen posteriorly, which are better demonstrated by CT. Mild facet joint hypertrophy is seen. There is mild right-sided and no significant left-sided neural foraminal narrowing. Moderate central canal narrowing is seen. T12-L1: The disc height and disk signal are relatively well-preserved. Mild to moderate disc bulge is seen. Bridging endplate osteophytes are seen posteriorly, which are better demonstrated by CT. Mild facet joint hypertrophy is seen. Moderate bilateral neural foraminal narrowing is seen, left worse than right. Moderate central canal narrowing is seen. L1-L2: The disc height is well-preserved. Loss of disc signal is seen at this level. Mild to moderate disc bulge is seen. Mild to moderate facet hypertrophy is seen. Mild to moderate bilateral neural foraminal narrowing is seen. Mild central canal narrowing is seen. L2-L3: The disc height is well-preserved. Loss of disc signal is seen at this level. Mild to moderate disc bulge is seen. Mild to moderate facet hypertrophy can be seen. There is at least moderate left-sided and moderate right-sided neural foraminal narrowing. Mild central canal narrowing is seen. L3-L4: The disc height is well-preserved. Loss of disc signal is seen at this level. Moderate generalized disc bulge is seen. There is a superimposed central disc protrusion. Moderate facet joint hypertrophy is seen. There is moderate to severe right-sided and at least moderate left-sided neural foraminal narrowing. There is a degree of compression seen upon the exiting nerve roots. Moderate central canal narrowing is seen. L4-L5: The disc height is well-preserved. Loss of disc signal is seen at this level. Moderate generalized disc bulge is seen. There is a superimposed central disc protrusion. There is moderate right-sided and [id number] left-sided facet hypertrophy. There is moderate to severe bilateral neural foraminal narrowing seen, with an associated a degree of compression seen upon the exiting nerve roots. Mild central canal narrowing is seen. L5-S1: The disc height is relatively well preserved. There is increased T2 weighted signal seen along this disc level. Moderate disc bulge is seen, which is eccentric to the left. Mild to moderate facet hypertrophy can be seen. There is at least moderate left-sided and moderate to severe right-sided neural foraminal narrowing. There is a degree of compression seen upon the exiting nerve roots. Mild to moderate central canal narrowing is seen, which is exacerbated by prominent epidural fat. IMPRESSION: A T12 fracture is seen. The appearance is most consistent with a subacute fracture, with mildly increased STIR signal. Abnormal fluid can be seen posteriorly at the T12 level, which is consistent with associated soft tissue injury. Please consider ligamentous injury. Multiple levels of significant degenerative change can be seen. Several sites of significant neural foraminal narrowing can be seen, with associated exiting nerve root compression. Bridging endplate osteophytes can be seen posteriorly at the T11-T12 and T12-L1 levels, which are better demonstrated on the prior CT. Dictated by: Joe Sebastian M.D. on 08/11/2022 at 14:11 Approved by: Joe Sebastian M.D. on 08/11/2022 at 14:18
[2022-08-09] MEDS: MAGNESIUM SULFATE 2 GM/50 ML PIGGYBACK IV (14:13)
--- NOTE | 2022-08-09 14:37 | PM.PN.1 ---
Subjective Subjective Interval history: Patient's back pain is only helped with IV dilaudid but it doesn't last 4 hours. He says he has pain with deep breaths in his back. HR on monitor 42 so EKG ordered. Exam Vital Signs (past 8 hours): - 08/09/22 07:48 08/09/22 07:53 08/09/22 11:44 Temperature 98.0 F Pulse Rate 73 Respiratory Rate 16 Blood Pressure 139/83 Pulse Oximetry 96 96 94 Oxygen Delivery Method Nasal Cannula Nasal Cannula Oxygen Flow Rate 2 2.5 08/09/22 14:15 Temperature 97.1 F L Pulse Rate 59 L Respiratory Rate 16 Blood Pressure 126/52 L Pulse Oximetry 97 Oxygen Delivery Method Oxygen Flow Rate Oxygen Delivery Method Nasal Cannula Oxygen Flow Rate 2.5 Narrative Exam Narrative: GEN: appears uncomfortable PULM: clear bilaterally CV: bradycardic, systolic murmur noted ABD: soft, nontender, nondistended, no organomegaly EXT: warm and well perfused with no edema NEURO: awake, alert, oriented with no focal deficits Objective Labs 08/09/22 08:45 08/09/22 08:45 Labs: Laboratory Results - last 24 hr 08/08/22 08/09/22 08/09/22 15:30 08:45 08:45 WBC 11.7 H RBC 3.99 L Hgb 13.3 L Hct 38.8 L MCV 97.3 MCH 33.3 MCHC 34.2 RDW 14.2 Plt Count 228 Neut % (Auto) 66.7 Lymph % (Auto) 22.0 L [place] % (Auto) 8.5 Eos % (Auto) 2.5 Baso % (Auto) 0.3 Neut # (Auto) 7800 H Lymph # (Auto) 2600 [place] # (Auto) 1000 H Eos # (Auto) 300 Baso # (Auto) 0 Sodium 136 L Potassium 4.4 Chloride 95 L Carbon Dioxide 33 H BUN 19 Creatinine 0.71 Estimated GFR > 60 BUN/Creatinine Ratio 26.8 H Glucose 179 H Calcium 8.5 Urine RBC 0-1/hpf Urine WBC 0-1/hpf Urine Bacteria Moderate (10-30) H PFSH Medical History BPPV (benign paroxysmal positional vertigo) Central stenosis of spinal canal Excessive daytime sleepiness Insomnia, persistent Obesity (BMI 30-39.9) Obstructive sleep apnea of adult Osteoarthritis Rheumatoid arthritis Family History Father Hypertension Diabetes mellitus CAD (coronary artery disease) Mother Diabetes mellitus Hypertension Social History marital status: household members: none lives independently: Yes caregiver/support person: No housing: house Smoking Status: Former smoker alcohol intake: former substance use type: does not use during the past year weight has: remained stable Type(s) of exercise: restricted ROM & activity Assessment & Plan Assessment & Plan narrative: 1. Acute hypoxemic respiratory failure -suspect secondary primarily to splinting with COPD and DEVORAH contributing -treat pain control as below -no acute COPD exacerbation -cpap for DEVORAH -wean oxygen as able -incentive spirometer ordered -continue montelukast -wean O2 as able 2. T12 compression fracture -suspect acute, secondary to trauma -no neurologic symptoms noted -pain is significant, will attempt multimodal approach with nsaids, tylenol, opiates, intransal calcitonin -if not improving may need consideration of procedural intervention -PT consult -bowel regimen ordered due to constipation, suspect from pain medications -lumbar MRI ordered to assess fracture and back pain further 3. Rheumatoid arthritis -on remicade 4. Hypertension -continue home medications -hold aspirin while giving frequent ibuprofen 5.Type 2 DM -hold oral meds -ordered insulin sliding scale 6. CAD with cardiomyopathy -hold aspirin, spironolactone for now 7. Possible UTI -has nitrates and wbcs on UA -no dysuria, but does have some urinary hesitancy -also leukcytosis noted on admission -ordered ceftriaxone -follow up cultures CODE: Full Proxy: yoan Garrido Dispo: Home pending pain control, weaning O2.
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
[2022-08-09] MEDS: SENNOSIDES 8.6 MG TABLET 17.2 MG PO (20:36)
[2022-08-09] MEDS: ACETAMINOPHEN 325 MG TABLET 650 MG PO (20:36)
[2022-08-10] VITALS (7 sets, daily range): BP systolic 127–132; BP diastolic 41–55; PULSE 54–72; RESP 18–20; TEMP 35.6–36.7; O2SAT 91–98
[2022-08-10] MEDS: HYDROMORPHONE 0.5 MG INJ IV ×4 (00:55→23:18)
[2022-08-10] MEDS: IBUPROFEN 600 MG TABLET PO ×2 (05:49→11:58)
[2022-08-10] MEDS: cefTRIAXone 1,000 MG in SODIUM CHLORIDE 0.9% 100 ML 200 MG IV (05:50)
[2022-08-10] MEDS: OXYCODONE IR 5 MG TABLET PO (05:50)
[2022-08-10 06:12] LABS: BUN Creatinine Ratio 35.9 (6-22); Blood Urea Nitrogen 23 mg/dL (9-20); Calcium 8.3 mg/dL (8.4-10.2); Carbon Dioxide 32 mmol/L (22-32); Chloride 98 mmol/L (98-107); Estimated Glomerular Filt Rate > 60 mL/min (>60); Glucose 130 mg/dL (80-110); HEMOLYSIS < 15 (0-50); Sodium 134 mmol/L (137-145)
[2022-08-10 06:13] LABS: Add Manual Diff / Slide Review NO; Basophils Absolute Auto 0 /uL (0-100); Basophils Percent Auto 0.3 % (0-2); Eosinophils Absolute Auto 300 /uL (0-450); Eosinophils Percent Auto 3.4 % (2-4); Hematocrit 35.4 % (41-53); Hemoglobin 12.3 g/dL (13.5-17.5); Lymphocytes Absolute Auto 3100 /uL (1100-4500); Lymphocytes Percent Auto 31.1 % (25-40); Mean Corpuscular HGB Conc 34.7 % (30-36); Mean Corpuscular Hemoglobin 33.5 PG (26-34); Mean Corpuscular Volume 96.5 fL (80-100); Monocytes Absolute Auto 900 /uL (0-900); Monocytes Percent Auto 8.4 % (3-14); Neutrophils Absolute Auto 5800 /uL (1500-7000); Neutrophils Percent Auto 56.8 % (50-75); Platelet Count 210 X10^3/uL (150-400); Red Blood Cell Count 3.67 X10^6/uL (4.5-5.9); Red Cell Distribution Width 13.7 % (11.6-14.8); White Blood Cell Count 10.1 X10^3/uL (4.5-11.0)
[2022-08-10] MEDS: DOCUSATE 100 MG CAPSULE PO ×2 (08:49→21:17)
[2022-08-10] MEDS: ATORVASTATIN 20 MG TABLET PO (08:49)
[2022-08-10] MEDS: polyethylene glycoL 3350 17 GM POWD.PACK PO (08:49)
[2022-08-10] MEDS: METOPROLOL IR 25 MG TABLET PO (08:49)
[2022-08-10] MEDS: AMLODIPINE 5 MG TABLET PO (08:49)
[2022-08-10] MEDS: ENOXAPARIN 40 MG/0.4 ML SYRINGE SUBCUT ×2 (08:49→21:17)
[2022-08-10] MEDS: OXYCODONE IR 10 MG TABLET PO ×3 (08:53→21:22)
--- NOTE | 2022-08-10 12:56 | PT.IPTN ---
Current Diagnoses Acute respiratory failure with hypoxia (08/08/22) Physical Therapy Treatment Note M2 PT-IP Current Condition Start: 08/08/22 15:34 Freq: Status: Active Protocol: Document 08/08/22 15:34 ES (Rec: 08/08/22 15:57 ES [id number]) Physical Therapy Current Condition Current Condition Evaluation Date 08/08/22 Treatment Diagnosis Severe back pain Onset Date 08/06/22 M3 PT-IP Subjective Start: 08/08/22 15:34 Freq: Status: Active Protocol: Document 08/10/22 12:45 KS (Rec: 08/10/22 13:57 KS [id number]) Subjective Physical Therapy Visit Type Type Treatment Note Visit Start Time 12:45 Visit Stop Time 12:56 Total Visit Minutes 11 Number of USER EXPERIENCE LEAD Visits 1 Therapy Pain Assessment Pain When Pain Assessed During Mobility Pain Present Pain Present Pain Reported Location Lower back Intensity 10 Scale Used Numeric (0 - 10) Pain Management Techniques Modification of Treatment M4 PT-IP Mobility and Gait Start: 08/08/22 15:34 Freq: Status: Active Protocol: Document 08/10/22 12:45 KS (Rec: 08/10/22 13:57 KS [id number]) PT-Transfer Assessment Comments Mobility Comments Pt in bed, reporting too much pain to mobilize. States he cannot even tolerate bed inclined d/t back pain. Able to complete LE exercises including ankle pumps, quad sets, glute sets, and heel slides. Gait Assessment Comments Gait Comments Unable to get OOB d/t pain. Stair Climbing Assessment Comments Stair Climbing Comments Did not assess M5 PT-IP Objective Assessments Start: 08/08/22 15:34 Freq: Status: Active Protocol: Document 08/08/22 15:34 ES (Rec: 08/08/22 15:57 ES [id number]) Orientation Orientation/Cognition Level of Alertness Alert Orientation Name,Age,Birthday,Month,Date, Year,Day of Week,Place, Situation Language Function Ability No Deficits Noted Safety Awareness Understands Safety Issues Memory Description No Deficits Noted Gross Range of Motion Upper Extremity ROM Assessment Within Functional Limits Lower Extremity ROM Assessment Within Functional Limits Strength Upper Extremity Strength Assessment Within Functional Limits Lower Extremity Strength Assessment Within Functional Limits Comments Strength Comments Decreased core strength and ROM 2/2 back pain Coordination Assessment Gross Coordination Gross Coordination WNL Sensation Assessment Sensation Gross Sensation WNL M6 PT-IP Treatment Start: 08/08/22 15:34 Freq: Status: Active Protocol: Document 08/10/22 12:45 KS (Rec: 08/10/22 13:57 KS [id number]) Physical Therapy Treatment Exercises Exercises Ankle Pumps,Gluteal Sets,Quad Sets,Heel Slides Other Treatments Other Treatment Performed Discussed importance of mobility, logroll, and SNF. M7 PT-IP Assessment and Plan Start: 08/08/22 15:34 Freq: Status: Active Protocol: Document 08/10/22 12:45 KS (Rec: 08/10/22 13:57 KS [id number]) PT Summary Assessment and Plan Potential Rehabilitation Potential Good Summary Impairments Pain,Bed Mobility,Transfers, Gait,Activity Tolerance Progress Towards Goals Slow Progress due to Pain Assessment Summary Pt unable to tolerate OOB mobility due to 10/10 back pain. Not even able to tolerate raised HOB. Did complete LE exercises, but c/o increased pain with majority of exercises as well. Not safe to go home at this time and will require SNF to improve functional mobility. Goals Bed Mobility Goal Independent Transfer Goal Independent,Cane Gait Goal Independent,Cane Gait Distance 50 ft Other Goals Patient will be able to ascend /descend 13 stairs with B canes with CGA. Days to Meet Goals 3 Frequency of Treatment Frequency Of Treatment Once a Day Treatment Plan Physical Therapy Treatment Plan Bed Mobility Training,Transfer Training,Gait Training, Discharge Planning, Neuromuscular Re-ed Other Recommendations and Next Treatment Progress gait, stairs Focus Recommendations To Nursing Amount of Assist Needed 1 Person Assist Discharge Recommendations PT Discharge Recommendations SNF Rehab Transportation Needs at Discharge Wheelchair/Cabulance
--- NOTE | 2022-08-10 14:18 | CM.DPC ---
DCP continued: Reviewed chart. Spoke with SISI/Yamile whom reports that current recommendtion is SNF. Met with patient explained role. Patient agreeable to short SNF stay. He resides in [place] and would like to go to [facility], [facility], or [facility]. Patient continues with pain and d/c date unknown. Anticipate within the next 24-48hrs. Per guidelines patient eligible for SNF on Thursday08-12-22. Called [facility] and provided referral. In addition faxed clinical to both [facility] and [facility]. P: Anticipate SNF when medically stable. [facility]
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
[2022-08-10] MEDS: SENNOSIDES 8.6 MG TABLET 17.2 MG PO (21:17)
[2022-08-10 23:51] LABS: COVID19 -Nasal RAPID Negative (Negative)
[2022-08-11] MEDS: ACETAMINOPHEN 325 MG TABLET 650 MG PO ×2 (04:58→10:14)
[2022-08-11] MEDS: OXYCODONE IR 10 MG TABLET PO ×2 (04:58→12:47)
[2022-08-11] MEDS: HYDROMORPHONE 0.5 MG INJ IV ×2 (05:30→14:44)
[2022-08-11 06:00] VITALS: BP 133/41; PULSE 45; RESP 10; TEMP 36.8; O2SAT 96
[2022-08-11] MEDS: ASPIRIN EC 81 MG TABLET PO (09:34)
[2022-08-11] MEDS: DOCUSATE 100 MG CAPSULE PO ×2 (09:34→22:24)
[2022-08-11] MEDS: ATORVASTATIN 20 MG TABLET PO (09:34)
[2022-08-11] MEDS: ENOXAPARIN 40 MG/0.4 ML SYRINGE SUBCUT ×2 (09:35→22:23)
[2022-08-11] MEDS: CALCITONIN,SALMON, NASAL SPRAY 1 SPRAYS NASAL (09:35)
[2022-08-11] MEDS: polyethylene glycoL 3350 17 GM POWD.PACK PO (09:35)
[2022-08-11] MEDS: SPIRONOLACTONE 25 MG TABLET 12.5 MG PO (09:36)
[2022-08-11] MEDS: OXYCODONE IR 5 MG TABLET PO (10:11)
[2022-08-11 10:45] VITALS: O2SAT 94
--- NOTE | 2022-08-11 10:49 | PC.NURSE ---
Patient is alert and oriented x4. His blood sugar this am is 115, no insulin needed. He states that his pain is 5/10. Given 1 oxycodone and some tylenol according to pain scale. Up with one person assist and two canes to void. He is lying on his left side. Patient is to have an MRI today but we are waiting on a card that describes his penile pump. Family member or friend will bring this over hopefully soon, will also remind patient.
--- NOTE | 2022-08-11 11:43 | PC.NURSE ---
Patient given pain medication, he asked for something iv but he was sleeping. Will continue to check on patient and his pain level.
[2022-08-11] MEDS: INSULIN LISPRO 100 UNIT/ML 3ML VIAL SUBCUT (12:29)
[2022-08-11] MEDS: FUROSEMIDE 40 MG TABLET PO (12:48)
[2022-08-11 12:57] VITALS: BP 148/76; PULSE 52; RESP 20; TEMP 36.1; O2SAT 93
--- NOTE | 2022-08-11 13:20 | PT.IPTN ---
Current Diagnoses Acute respiratory failure with hypoxia (08/08/22) Physical Therapy Treatment Note M2 PT-IP Current Condition Start: 08/08/22 15:34 Freq: Status: Active Protocol: Document 08/08/22 15:34 ES (Rec: 08/08/22 15:57 ES [id number]) Physical Therapy Current Condition Current Condition Evaluation Date 08/08/22 Treatment Diagnosis Severe back pain Onset Date 08/06/22 M3 PT-IP Subjective Start: 08/08/22 15:34 Freq: Status: Active Protocol: Document 08/11/22 13:56 TS (Rec: 08/11/22 14:31 TS [id number]) Subjective Physical Therapy Visit Type Type Treatment Note Visit Start Time 13:20 Visit Stop Time 13:53 Total Visit Minutes 23 Number of ORIENTAL RUG REPAIRER Visits 2 Physical Therapy Visit Comments Patient Comments Pt reports he's in some pain but just had some meds and feeling better. Patient Goals To have less pain Therapy Pain Assessment Pain When Pain Assessed During Mobility Pain Present Pain Present Pain Reported Location Lower back Intensity 5 Scale Used Numeric (0 - 10) Description Aching Pain Management Techniques Modification of Treatment M4 PT-IP Mobility and Gait Start: 08/08/22 15:34 Freq: Status: Active Protocol: Document 08/11/22 13:56 TS (Rec: 08/11/22 14:31 TS [id number]) PT-Bed Mobility Assessment Rolling Type of Rolling Log Rolling Level of Assist Standby Assistance Supine to Sit Supine to Sit Standby Assistance,Head of Bed Elevated Scooting Scooting to Edge of Bed Standby Assistance PT-Transfer Assessment Sit to and From Stand Sit to and from Stand Standby Assistance,Use of Upper Extremities Equipment Transfer Assistive Device Gait Belt,Straight Cane Orthotic/Prosthetic Devices or Brace: No Comments Mobility Comments Pt found resting in bed, agreeable to PT session. Logroll with increased effort, HOB elevated 30D SBA. Supine to sit SBA with increaed effort, LUE single point cane for uprighting trunk. Sit to stand x1 SBA with bilateral SPC. Ambulated ~10' to toilet SBA with bilateral SPC. Sit to stand x1 from toilet SBA with FFW/handrail assist. Pt ambulated ~40' SBA with bilateral SPC slow/cautious ankur to gait, no LOB or buckling. Stand to sit in chair with BUE support on arms of chair. Pt was left in chair with call light nearby, all needs met, Rn notified. Gait Assessment Gait Gait Assistance Required: Standby Assistance Distance (Feet) 50 Assistive Devices Assistive Device Gait Belt,Straight Cane Orthotic/Prosthetic Devices or Brace: No Gait Deviations General Gait Pattern Antalgic,Decreased Stride Length,Decreased Feet Clearance Factors Limiting Gait Function Factors Limiting Gait Function Pain Comments Gait Comments See mobility comments. Stair Climbing Assessment Comments Stair Climbing Comments Did not assess PT-Balance Assessment Sitting Balance and Reactions Static Sitting Balance Ability Good Dynamic Sitting Balance Ability Good Standing Balance and Reactions Static Standing Balance Ability Good Dynamic Standing Balance Ability Good Device Used B canes M5 PT-IP Objective Assessments Start: 08/08/22 15:34 Freq: Status: Active Protocol: Document 08/08/22 15:34 ES (Rec: 08/08/22 15:57 ES [id number]) Orientation Orientation/Cognition Level of Alertness Alert Orientation Name,Age,Birthday,Month,Date, Year,Day of Week,Place, Situation Language Function Ability No Deficits Noted Safety Awareness Understands Safety Issues Memory Description No Deficits Noted Gross Range of Motion Upper Extremity ROM Assessment Within Functional Limits Lower Extremity ROM Assessment Within Functional Limits Strength Upper Extremity Strength Assessment Within Functional Limits Lower Extremity Strength Assessment Within Functional Limits Comments Strength Comments Decreased core strength and ROM 2/2 back pain Coordination Assessment Gross Coordination Gross Coordination WNL Sensation Assessment Sensation Gross Sensation WNL M6 PT-IP Treatment Start: 08/08/22 15:34 Freq: Status: Active Protocol: Document 08/11/22 13:56 TS (Rec: 08/11/22 14:31 TS [id number]) Physical Therapy Treatment Exercises Exercises Ankle Pumps,Gluteal Sets,Quad Sets,Heel Slides Education Education Provided Safety M7 PT-IP Assessment and Plan Start: 08/08/22 15:34 Freq: Status: Active Protocol: Document 08/11/22 13:56 TS (Rec: 08/11/22 14:31 TS [id number]) PT Summary Assessment and Plan Potential Rehabilitation Potential Good Summary Impairments Pain,Bed Mobility,Transfers, Gait,Activity Tolerance Progress Towards Goals Progressing Toward Goals Assessment Summary Pt progressed to logroll SBA with HOB elevated, demonstrates good carryover from previous session and progressed his ambulation to ~ 50' in room SBA with bilateral cane. Pt requires increased effort with mobility this session due to pain, SOB and decreased activity tolerance. PT recommends SNF to progress bed mobility, funcitonal mobility, transfers, gait and increased activity tolerance. Goals Bed Mobility Goal Independent Transfer Goal Independent,Cane Gait Goal Independent,Cane Gait Distance 50 ft Other Goals Patient will be able to ascend /descend 13 stairs with B canes with CGA. Days to Meet Goals 3 Frequency of Treatment Frequency Of Treatment Once a Day Treatment Plan Physical Therapy Treatment Plan Bed Mobility Training,Transfer Training,Gait Training, Discharge Planning, Neuromuscular Re-ed Other Recommendations and Next Treatment Progress gait, stairs Focus Recommendations To Nursing Amount of Assist Needed Standby Assistance,1 Person Assist Discharge Recommendations PT Discharge Recommendations SNF Rehab Transportation Needs at Discharge Wheelchair/Cabulance
--- NOTE | 2022-08-11 16:00 | PM.PN.1 ---
Subjective Subjective Interval history: Continues to have uncontrolled pain today, previous has been on 20 mg oxycodone after joint surgeries. Will increase to 20 mg q4 along with IV for breakthrough, start scheduled tylenol, gabapentin, and lidocaine patch. Exam Vital Signs (past 8 hours): - 08/11/22 10:45 08/11/22 12:57 Temperature 96.9 F L Pulse Rate 52 L Respiratory Rate 20 Blood Pressure 148/76 H Pulse Oximetry 94 93 Oxygen Delivery Method Room Air Oxygen Flow Rate 0 Oxygen Delivery Method Room Air Oxygen Flow Rate 0 Narrative Exam Narrative: Gen: alert Lungs: clear, bruising noted on shoulder blades CV: regular Ext: no edema Neuro: nl speech and affect Objective Labs 08/10/22 05:20 08/10/22 05:20 Labs: Laboratory Results - last 24 hr 08/10/22 23:18 SARS-CoV-2 (PCR) Negative [facility] Medical History BPPV (benign paroxysmal positional vertigo) Central stenosis of spinal canal Excessive daytime sleepiness Insomnia, persistent Obesity (BMI 30-39.9) Obstructive sleep apnea of adult Osteoarthritis Rheumatoid arthritis Family History Father Hypertension Diabetes mellitus CAD (coronary artery disease) Mother Diabetes mellitus Hypertension Social History marital status: household members: none lives independently: Yes caregiver/support person: No housing: house Smoking Status: Former smoker alcohol intake: former substance use type: does not use during the past year weight has: remained stable Type(s) of exercise: restricted ROM & activity Assessment & Plan Assessment & Plan narrative: 1. Acute hypoxemic respiratory failure, resolved -suspect secondary primarily to splinting with COPD and DEVORAH contributing -treat pain control as below -no acute COPD exacerbation -cpap for DEVORAH -incentive spirometer ordered -continue montelukast -Goal O2 >89%, no longer on supplemental therapy today. 2. T12 compression fracture -suspect acute, secondary to trauma -pain is significant, will attempt multimodal approach with tylenol, opiates, lidocaine patch. Will need to increase today. -if not improving may need consideration of procedural intervention -PT consult, recommending SNF rehab -bowel regimen ordered due to constipation, suspect from pain medications - cont Miralax, senna, judd -MRI with mild - moderate spinal narrowing, not related to acute pathologies most likely and no neurological symptoms. 3. Rheumatoid arthritis -on remicade, MTX 4. Hypertension -continue home medications 5.Type 2 DM, controlled -holding metformin and glipizide -ordered insulin sliding scale 6. CAD with cardiomyopathy -cont metoprolol, atorvastatin -restarted ASA, spironolactone, furosemide per home routine (stopped ibu) -ECHO 07/23/22: EF 55-60%, has outpatient appt with Dr Hoffman on 08/11 left message with office 7. Possible UTI, ruled out -neg urine cx, d/c'd abx DVT prevention: enoxaprin DISP: SNF rehab if pain more adequately controlled, hopeful for tomorrow.
[2022-08-11] MEDS: ACETAMINOPHEN 325 MG TABLET 975 MG PO ×2 (16:06→22:23)
[2022-08-11] MEDS: LIDOCAINE PATCH 1 EACH ADH..PATCH TOP (16:08)
[2022-08-11] MEDS: GABAPENTIN 300 MG CAPSULE PO ×2 (16:09→22:23)
[2022-08-11] MEDS: AMLODIPINE 5 MG TABLET PO (16:09)
--- NOTE | 2022-08-11 17:21 | CM.DPNOTE ---
DCP/continued: Reviewed chart. Patient accepted at [facility] when medically stable. Spoke with Dr. Vidales and he reports that he is trying to get his pain under control. D/C expected within the next 24-48hrs. PASRR needed. Met with patient and he is aware and agreeable to plan. P: [facility] when medically stable.
[2022-08-11 18:44] VITALS: BP 140/77; PULSE 75; RESP 19; TEMP 36.6; O2SAT 94
[2022-08-11 19:00] VITALS: O2SAT 94
[2022-08-11] MEDS: SODIUM CHLORIDE 0.9% FLUSH 10 ML IV (22:24)
[2022-08-11] MEDS: SENNOSIDES 8.6 MG TABLET 17.2 MG PO (22:24)
[2022-08-11] MEDS: OXYCODONE IR 10 MG TABLET 20 MG PO (22:31)
[2022-08-12] VITALS: BP 156/46; PULSE 70; RESP 18; TEMP 36.7; O2SAT 93
[2022-08-12] MEDS: OXYCODONE IR 10 MG TABLET 20 MG PO (03:29)
[2022-08-12 07:00] VITALS: O2SAT 94
--- NOTE | 2022-08-12 08:10 | PC.NURSE ---
Patients blood sugar 118. He is eating breakfast now. States that his pain level is a 7/8 of 10. Will give patient some pain medication. Resting at this time.
[2022-08-12] MEDS: SPIRONOLACTONE 25 MG TABLET 12.5 MG PO (08:42)
[2022-08-12] MEDS: DOCUSATE 100 MG CAPSULE PO ×2 (08:43→21:06)
[2022-08-12] MEDS: ACETAMINOPHEN 325 MG TABLET 975 MG PO ×3 (08:44→22:51)
[2022-08-12] MEDS: AMLODIPINE 5 MG TABLET PO (08:46)
[2022-08-12] MEDS: ASPIRIN EC 81 MG TABLET PO (08:46)
[2022-08-12] MEDS: ATORVASTATIN 20 MG TABLET PO (08:46)
[2022-08-12] MEDS: GABAPENTIN 300 MG CAPSULE PO ×3 (08:46→21:06)
[2022-08-12] MEDS: polyethylene glycoL 3350 17 GM POWD.PACK PO (08:46)
[2022-08-12] MEDS: ENOXAPARIN 40 MG/0.4 ML SYRINGE SUBCUT ×2 (08:47→21:06)
[2022-08-12] MEDS: CALCITONIN,SALMON, NASAL SPRAY 1 SPRAYS NASAL (08:47)
[2022-08-12] MEDS: LIDOCAINE PATCH 1 EACH ADH..PATCH TOP (08:47)
[2022-08-12] MEDS: OXYCODONE ER 20 MG TAB 40 MG PO ×2 (10:02→21:06)
[2022-08-12] MEDS: SODIUM CHLORIDE 0.9% FLUSH 10 ML IV ×2 (10:07→21:07)
[2022-08-12 10:38] VITALS: BP 152/69
[2022-08-12] MEDS: FUROSEMIDE 40 MG TABLET PO (10:40)
--- NOTE | 2022-08-12 11:30 | PT.IPTN ---
Current Diagnoses Acute respiratory failure with hypoxia (08/08/22) Physical Therapy Treatment Note M2 PT-IP Current Condition Start: 08/08/22 15:34 Freq: Status: Active Protocol: Document 08/08/22 15:34 ES (Rec: 08/08/22 15:57 ES [id number]) Physical Therapy Current Condition Current Condition Evaluation Date 08/08/22 Treatment Diagnosis Severe back pain Onset Date 08/06/22 M3 PT-IP Subjective Start: 08/08/22 15:34 Freq: Status: Active Protocol: Document 08/12/22 12:20 TS (Rec: 08/12/22 12:40 TS [id number]) Subjective Physical Therapy Visit Type Type Treatment Note Visit Start Time 11:30 Visit Stop Time 12:13 Total Visit Minutes 43 Notes Spo2 95% RA post-ambulation Number of RADIO ELECTRICIAN Visits 3 Physical Therapy Visit Comments Patient Comments Pt reports he's in some pain but just had some meds and feeling better. Patient Goals To have less pain Therapy Pain Assessment Pain When Pain Assessed During Mobility Pain Present Pain Present Pain Reported M4 PT-IP Mobility and Gait Start: 08/08/22 15:34 Freq: Status: Active Protocol: Document 08/12/22 12:20 TS (Rec: 08/12/22 12:40 TS [id number]) PT-Bed Mobility Assessment Rolling Type of Rolling Log Rolling Level of Assist Standby Assistance Supine to Sit Supine to Sit Standby Assistance,Head of Bed Elevated Scooting Scooting to Edge of Bed Standby Assistance PT-Transfer Assessment Sit to and From Stand Sit to and from Stand Standby Assistance,Use of Upper Extremities Equipment Transfer Assistive Device Gait Belt,Straight Cane Orthotic/Prosthetic Devices or Brace: No Comments Mobility Comments Pt found resting in bed, agreeable to PT session. Logroll SBA, demonstrates good carryover from previous session. Supine to sit SBA with HOB elevated 30D with BUE support. Sit to stand x1 SBA with bilateral SPC, flexed posture coming into standing. Pt ambulated in hallway ~100' SBA with some swaying before requiring rest break in w/c. Stairs x6 ascending/descending with RUE handrail assist and SPC LUE, no buckling or LOB but SOB. Sit to stand from w/c with FWW SBA x1 with increased effort compared to canes. Ambulated to chair in FWW ~10' SBA, no swaying. Pt was left in chair with call light nearby, lunch tray, RN notified. Gait Assessment Gait Gait Assistance Required: Standby Assistance Distance (Feet) 100 Assistive Devices Assistive Device Gait Belt,Straight Cane Orthotic/Prosthetic Devices or Brace: No Gait Deviations General Gait Pattern Antalgic,Decreased Stride Length,Decreased Feet Clearance,Step-to Gait Factors Limiting Gait Function Factors Limiting Gait Function Pain Comments Gait Comments See mobility comments. Stair Climbing Assessment Evaluation Level of Assist On Stairs Standby Assistance Devices Stair Climbing Assistive Devices Straight Cane,Right Railing Technique/Endurance Stair Climbing Direction Ascend and Descend Stair Climbing Technique Step to Step Number of Steps Climbed 6 Stair Climbing Set # Repetitions (reps) 2 PT-Balance Assessment Sitting Balance and Reactions Static Sitting Balance Ability Good Dynamic Sitting Balance Ability Good Standing Balance and Reactions Static Standing Balance Ability Good Dynamic Standing Balance Ability Good Device Used B canes M5 PT-IP Objective Assessments Start: 08/08/22 15:34 Freq: Status: Active Protocol: Document 08/08/22 15:34 ES (Rec: 08/08/22 15:57 ES [id number]) Orientation Orientation/Cognition Level of Alertness Alert Orientation Name,Age,Birthday,Month,Date, Year,Day of Week,Place, Situation Language Function Ability No Deficits Noted Safety Awareness Understands Safety Issues Memory Description No Deficits Noted Gross Range of Motion Upper Extremity ROM Assessment Within Functional Limits Lower Extremity ROM Assessment Within Functional Limits Strength Upper Extremity Strength Assessment Within Functional Limits Lower Extremity Strength Assessment Within Functional Limits Comments Strength Comments Decreased core strength and ROM 2/2 back pain Coordination Assessment Gross Coordination Gross Coordination WNL Sensation Assessment Sensation Gross Sensation WNL M6 PT-IP Treatment Start: 08/08/22 15:34 Freq: Status: Active Protocol: Document 08/12/22 12:20 TS (Rec: 08/12/22 12:40 TS [id number]) Physical Therapy Treatment Education Education Provided Safety M7 PT-IP Assessment and Plan Start: 08/08/22 15:34 Freq: Status: Active Protocol: Document 08/12/22 12:20 TS (Rec: 08/12/22 12:40 TS [id number]) PT Summary Assessment and Plan Potential Rehabilitation Potential Good Summary Impairments Pain,Bed Mobility,Transfers, Gait,Activity Tolerance Progress Towards Goals Progressing Toward Goals Assessment Summary Pt continues to be SBA with all bed mobility, demonstrates good carryover of sequencing of logroll. He progressed his ambulation to ~100 in hallway before requiring rest break in w/c due to pain/fatigue. He progressed to stairs x6 ascending/descending SBA with RUE handrail assist and LUE SPC. Pt's mobility improves with pain being managed but is unsteady on his feet ambulating with bilateral canes and has decreased activity tolerance due to pain /SOB, Spo2 remained in mid 90' s throughout session. PT is recommending SNF rehab to improve balance, progress gait and activity tolerance. He does live independently and would require to be independent to return home safely since he will not receive much assistance from family at home. Goals Bed Mobility Goal Independent Transfer Goal Independent,Cane Gait Goal Independent,Cane Gait Distance 50 ft Other Goals Patient will be able to ascend /descend 13 stairs with B canes with CGA. Days to Meet Goals 3 Frequency of Treatment Frequency Of Treatment Once a Day Treatment Plan Physical Therapy Treatment Plan Bed Mobility Training,Transfer Training,Gait Training, Discharge Planning, Neuromuscular Re-ed Other Recommendations and Next Treatment Progress gait, stairs Focus Recommendations To Nursing Amount of Assist Needed Standby Assistance,1 Person Assist Discharge Recommendations PT Discharge Recommendations SNF Rehab Transportation Needs at Discharge Wheelchair/Cabulance
[2022-08-12 12:00] VITALS: BP 173/70; PULSE 83; RESP 18
[2022-08-12] MEDS: INSULIN LISPRO 100 UNIT/ML 3ML VIAL SUBCUT ×2 (12:22→17:04)
--- NOTE | 2022-08-12 12:39 | PC.NURSE ---
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 Patient complains of back pain now reported at 3/10, worse with movement and ambulation. Patient is ambulatory with an unsteady gait and two canes. Patient reports neuropathy of bilat lower extremities at baseline that is unchanged. O-Patient sitting upright in chair finishing his lunch. Alert and oriented to person, place, time and event. Following commands appropriately, moving all extremities. Extremities PWD, strong pulses. D[employer] Ii Farmworker equal, plantar/dorsiflexion equal bilat A-T12 compression fx P-Encourage ambulation, administer medications as prescribed for pain management.
--- NOTE | 2022-08-12 13:25 | CM.DPNOTE ---
DCP Note Met w/patient to review DCP; patient in good spirits, says his pain has been manageable today. Patient agrees that he will need SNF upon discharge and agreeable to [facility] when medically cleared FRANNY Baker at [facility], bed is being held for patient CM team will plan to follow closely for coordination of DCP JW
--- NOTE | 2022-08-12 14:35 | PM.PN.1 ---
Subjective Subjective Interval history: He was still in considerable pain this morning, barely able to move. Added ER oxycodone today with much improvement. By the afternoon he was sitting up in the bedside chair on the computer. Given significant doses of oxycodone today, will continue monitoring for hypercarbia / respiratory depression given his obesity. If his pain control is also improved, he may be able to go home tomorrow depending on therapy evaluations. Exam Vital Signs (past 8 hours): - 08/12/22 07:00 08/12/22 10:38 08/12/22 12:00 Pulse Rate 83 Respiratory Rate 18 Blood Pressure 152/69 H 173/70 H Pulse Oximetry 94 Oxygen Delivery Method Room Air Oxygen Delivery Method Room Air Oxygen Flow Rate 0 Narrative Exam Narrative: Gen: alert Lungs: clear, bruising noted on shoulder blades CV: regular Ext: no edema Neuro: nl speech and affect Objective Labs 08/10/22 05:20 08/10/22 05:20 PFSH Medical History BPPV (benign paroxysmal positional vertigo) Central stenosis of spinal canal Excessive daytime sleepiness Insomnia, persistent Obesity (BMI 30-39.9) Obstructive sleep apnea of adult Osteoarthritis Rheumatoid arthritis Family History Father Hypertension Diabetes mellitus CAD (coronary artery disease) Mother Diabetes mellitus Hypertension Social History marital status: household members: none lives independently: Yes caregiver/support person: No housing: house Smoking Status: Former smoker alcohol intake: former substance use type: does not use during the past year weight has: remained stable Type(s) of exercise: restricted ROM & activity Assessment & Plan Assessment & Plan narrative: 1. Acute hypoxemic respiratory failure, resolved -suspect secondary primarily to splinting with COPD and DEVORAH contributing -treat pain control as below -no acute COPD exacerbation -cpap for DEVORAH -incentive spirometer ordered -continue montelukast -Goal O2 >89%, no longer on supplemental therapy today. 2. T12 compression fracture -suspect acute, secondary to trauma -pain is significant though improved today with considerable opiate doses. 40 mg ER oxycodone BID with 20 mg q4 hr prn, along with scheduled tylenol, gabapentin TID, and lidocaine patch. Will monitor with high doses today for respiratory depression or hypercarbia given his obesity. -PT consult, recommending SNF rehab initially though with pain control hopeful that he may be able to go home tomorrow. -bowel regimen ordered due to constipation, suspect from pain medications - cont Miralax, senna, judd -MRI with mild - moderate spinal narrowing, not related to acute pathologies most likely and no neurological symptoms. 3. Rheumatoid arthritis -on remicade, MTX 4. Hypertension -continue home medications 5.Type 2 DM, controlled -holding metformin and glipizide -ordered insulin sliding scale 6. CAD with cardiomyopathy -cont metoprolol, atorvastatin -restarted ASA, spironolactone, furosemide per home routine (stopped ibu) -ECHO 07/23/22: EF 55-60%, has outpatient appt with Dr Hoffman on 08/11 left message with office 7. Possible UTI, ruled out -neg urine cx, d/c'd abx DVT prevention: enoxaprin DISP: home vs SNF, likely tomorrow, keep for today given considerable amounts of opiates to monitor for respiratory depression, confusion, or hypercarbia given his obesity. Suspect SNF. COVID-19 COVID-19 status: Negative
--- NOTE | 2022-08-12 15:33 | PT.IPRE ---
Current Diagnoses Acute respiratory failure with hypoxia (08/08/22) Medical History (Last Reviewed 08/09/22 @ 05:20 by Ilan Mccall MD) BPPV (benign paroxysmal positional vertigo) Central stenosis of spinal canal Excessive daytime sleepiness Insomnia, persistent Obesity (BMI 30-39.9) Obstructive sleep apnea of adult Osteoarthritis Rheumatoid arthritis Physical Therapy Inpatient Evaluation/Re-Eval M1 PT/OT-IP Prior Functional Status Start: 08/08/22 15:34 Freq: Status: Active Protocol: Document 08/08/22 15:34 ES (Rec: 08/08/22 15:57 ES [id number]) Medical Review Prior Functional Status Medical History Reviewed Yes Diet/Fluid Consistency Regular Communication WFL Mobility and Gait Indep without AD Activities of Daily Living and IADL's Indep Social History Household Members none Living Arrangements House Number of Floors (Floors) One Floor Number of Stairs To Enter/Railing? 13 concrete/stone steps without rail Home Equipment Four Wheel Walker,Straight Cane,Crutches Additional Social History Comment [place] Has a son locally who works full-time as a teacher. M2 PT-IP Current Condition Start: 08/08/22 15:34 Freq: Status: Active Protocol: Document 08/08/22 15:34 ES (Rec: 08/08/22 15:57 ES [id number]) Physical Therapy Current Condition Current Condition Evaluation Date 08/08/22 Treatment Diagnosis Severe back pain Onset Date 08/06/22 M3 PT-IP Subjective Start: 08/08/22 15:34 Freq: Status: Active Protocol: Document 08/12/22 15:26 ES (Rec: 08/12/22 15:32 ES [id number]) Subjective Physical Therapy Visit Type Type Administrative Note Number of COMPOSITE ENGINEER Visits 0 Physical Therapy Visit Comments Patient Comments Patient reported his pain has been a little better today with the new pain medication and dosage. He asked who he would talk to about finances relating to SNF; I referred him to care management. M4 PT-IP Mobility and Gait Start: 08/08/22 15:34 Freq: Status: Active Protocol: Document 08/12/22 12:20 TS (Rec: 08/12/22 12:40 TS [id number]) PT-Bed Mobility Assessment Rolling Type of Rolling Log Rolling Level of Assist Standby Assistance Supine to Sit Supine to Sit Standby Assistance,Head of Bed Elevated Scooting Scooting to Edge of Bed Standby Assistance PT-Transfer Assessment Sit to and From Stand Sit to and from Stand Standby Assistance,Use of Upper Extremities Equipment Transfer Assistive Device Gait Belt,Straight Cane Orthotic/Prosthetic Devices or Brace: No Comments Mobility Comments Pt found resting in bed, agreeable to PT session. Logroll SBA, demonstrates good carryover from previous session. Supine to sit SBA with HOB elevated 30D with BUE support. Sit to stand x1 SBA with bilateral SPC, flexed posture coming into standing. Pt ambulated in hallway ~100' SBA with some swaying before requiring rest break in w/c. Stairs x6 ascending/descending with RUE handrail assist and SPC LUE, no buckling or LOB but SOB. Sit to stand from w/c with FWW SBA x1 with increased effort compared to canes. Ambulated to chair in FWW ~10' SBA, no swaying. Pt was left in chair with call light nearby, lunch tray, RN notified. Gait Assessment Gait Gait Assistance Required: Standby Assistance Distance (Feet) 100 Assistive Devices Assistive Device Gait Belt,Straight Cane Orthotic/Prosthetic Devices or Brace: No Gait Deviations General Gait Pattern Antalgic,Decreased Stride Length,Decreased Feet Clearance,Step-to Gait Factors Limiting Gait Function Factors Limiting Gait Function Pain Comments Gait Comments See mobility comments. Stair Climbing Assessment Evaluation Level of Assist On Stairs Standby Assistance Devices Stair Climbing Assistive Devices Straight Cane,Right Railing Technique/Endurance Stair Climbing Direction Ascend and Descend Stair Climbing Technique Step to Step Number of Steps Climbed 6 Query Text: Stair Climbing Set # Repetitions (reps) 2 PT-Balance Assessment Sitting Balance and Reactions Static Sitting Balance Ability Good Dynamic Sitting Balance Ability Good Standing Balance and Reactions Static Standing Balance Ability Good Dynamic Standing Balance Ability Good Device Used B canes M5 PT-IP Objective Assessments Start: 08/08/22 15:34 Freq: Status: Active Protocol: Document 08/08/22 15:34 ES (Rec: 08/08/22 15:57 ES [id number]) Orientation Orientation/Cognition Level of Alertness Alert Orientation Name,Age,Birthday,Month,Date, Year,Day of Week,Place, Situation Language Function Ability No Deficits Noted Safety Awareness Understands Safety Issues Memory Description No Deficits Noted Gross Range of Motion Upper Extremity ROM Assessment Within Functional Limits Lower Extremity ROM Assessment Within Functional Limits Strength Upper Extremity Strength Assessment Within Functional Limits Lower Extremity Strength Assessment Within Functional Limits Comments Strength Comments Decreased core strength and ROM 2/2 back pain Coordination Assessment Gross Coordination Gross Coordination WNL Sensation Assessment Sensation Gross Sensation WNL M6 PT-IP Treatment Start: 08/08/22 15:34 Freq: Status: Active Protocol: Document 08/12/22 12:20 TS (Rec: 08/12/22 12:40 TS [id number]) Physical Therapy Treatment Education Education Provided Safety M7 PT-IP Assessment and Plan Start: 08/08/22 15:34 Freq: Status: Active Protocol: Document 08/12/22 15:26 ES (Rec: 08/12/22 15:32 ES [id number]) PT Summary Assessment and Plan Potential Rehabilitation Potential Good Status of Condition at Evaluation Evolving Summary Impairments Pain,Bed Mobility,Transfers, Gait,Activity Tolerance Progress Towards Goals Progressing Toward Goals Assessment Summary Patient has been making slow progress with mobility, improved today with adjustment in pain medication. He continues to be at increased risk for falls and has minimal social support, so continue to recommend SNF to allow for further improvement in condition prior to returning home alone. PT will continue to work with Rodolfo to increase safety and independence with mobility. Goals Bed Mobility Goal Independent Transfer Goal Independent,Cane Gait Goal Independent,Cane Gait Distance 100 ft Other Goals Patient will be able to ascend /descend 13 stairs with B canes with CGA. Days to Meet Goals 3 Frequency of Treatment Frequency Of Treatment Once a Day Treatment Plan Physical Therapy Treatment Plan Bed Mobility Training,Transfer Training,Gait Training, Discharge Planning, Neuromuscular Re-ed Other Recommendations and Next Treatment Progress gait, stairs Focus Recommendations To Nursing Amount of Assist Needed Standby Assistance,1 Person Assist Discharge Recommendations PT Discharge Recommendations SNF Rehab Transportation Needs at Discharge Wheelchair/Cabulance
[2022-08-12 18:00] VITALS: BP 145/63; PULSE 65; RESP 16; TEMP 36.4; O2SAT 93
[2022-08-12 19:56] VITALS: BP 151/55; PULSE 74; RESP 18; TEMP 36.1; O2SAT 93
[2022-08-12] MEDS: SENNOSIDES 8.6 MG TABLET 17.2 MG PO (21:07)
--- NOTE | 2022-08-12 21:39 | PC.NURSE ---
Patient is alert and oriented. Breath sounds CTA with RA sat of 93%. HR w/occasional missed beats; BP elevated at 151/55. Denies nausea. BT hypoactive but is passing flatus; last BM was 08/09. Voiding per urinal and denies dysuria. Is able to turn himself in bed. Reportedly gets up with 1 assist and uses bilateral canes; gait not assessed at this time. Complaining of 7/10 back pain; is now receiving Oxycontin ER BID; informed he may also have oxycodone IR for breakthrough pain. Has neuropathy in bilateral LE from below knee to toes and endorses chronic numbness in bilateral hands. Fall risk score is high and bed alarm is activated.
[2022-08-13] MEDS: OXYCODONE IR 10 MG TABLET 20 MG PO ×3 (01:05→11:46)
[2022-08-13 05:24] VITALS: BP 152/55; PULSE 78; RESP 18; TEMP 36.2; O2SAT 94
[2022-08-13] MEDS: ACETAMINOPHEN 325 MG TABLET 975 MG PO (06:23)
[2022-08-13 07:57] VITALS: BP 155/66; PULSE 67; RESP 16; TEMP 36; O2SAT 92
[2022-08-13 08:30] VITALS: O2SAT 96
--- NOTE | 2022-08-13 08:55 | P.DS_ITS ---
History of Present Illness History of Present Illness Date Patient Seen: 08/13/22 Time Patient Seen: 08:55 Chief complaint: Back Pain/ Chest Pain Narrative: Per Admitting provider, Mr. Washington is a 77M with PMH COPD, DEVORAH, rheumatoid arthritis, CAD with cardiomyopathy, morbid obesity who presents to the hospital with back pain. 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 He initially presented to another hospital two days ago and was ultimately discharged home with pain medications. He presents back to the hospital with continued pain, which is poorly controlled. He has pain that is noted in the mid to lower back primarily central and just to the right of the spine. No radiation. No extremity weakness or tingling, no saddle anesthesia. No loos of bowel or bladder. He has had some constipation since starting vicodin. He states it hurts his back to breath, and he is taking shallow breaths. No cough, chest pain, fevers/chills. In the ED workupw as done, vitals notable for afebrile, heart rate in the 60s, blood pressure 160s-180s/70s, sats 80s on room air. He was placed on oxygen. Labs reviewed by me and notable for WBC 13.6, hgb 13.8, plts 245. creatinine 0.70. Lactate 3.0, resolved after fluids to 1.3. Trop negative. UA with nitrates, bacteria, and no WBC. CT chest abdomen, pelvis reviewed by me and notable for t12 compression fracture. He was ordered for pain medications and admitted for further treatment. Discharge Providers Provider Date of admission: 08/08/22 19:51 Discharge Date: 08/13/22 Primary care physician: Buzz Mills MD Consults: 08/08/22 21:22 Consult to Physical Therapy Evaluate & Treat Comment: Physician Instructions: Evaluate and Treat Discharge provider: Buzz Vidales DO Summary Hospital Course Discharge Diagnosis: 1. Acute hypoxemic respiratory failure, resolved 2. T12 compression fracture, acute, traumatic 3. Rheumatoid arthritis 4. Hypertension 5.Type 2 DM, controlled 6. CAD with cardiomyopathy 7. Possible UTI, ruled out Hospital Course: This is a 77 year old male with PMH of DM2, HTN, CAD who was admitted after a traumatic T12 compression fracture for pain control. He was also hypoxic on admission but this is felt due to his DEVORAH and difficulty with breathing due to acute pain as hypoxia resolved quickly with pain medications. Pain control proved difficult, but was better with 40 mg of oxycontin q8 hr scheduled, 20 mg oxycodone IR every 4 hours prn, along with scheduled tylenol, gabapentin, and lidocaine patch. He felt much improved with this but mobility remained limited and was transferred to SNF for continued therapies. No changes otherwise were made to his home medications. He was thought to possibly have a UTI, and was started on ceftriaxone but antibiotics were discontinued with negative cultures. Time Spent with Patient Time spent: Greater than 30 minutes Exam Vital Signs (past 8 hours): - 08/13/22 05:24 08/13/22 07:57 Temperature 97.1 F L 96.8 F L Pulse Rate 78 67 Respiratory Rate 18 16 Blood Pressure 152/55 H 155/66 H Pulse Oximetry 94 92 Oxygen Flow Rate 0 0 Oxygen Delivery Method Room Air Oxygen Flow Rate 0 Narrative Exam Narrative: Gen: alert Lungs: clear, bruising noted on shoulder blades CV: regular Ext: no edema Neuro: nl speech and affect Objective Labs 08/10/22 05:20 08/10/22 05:20 [facility] Medical History BPPV (benign paroxysmal positional vertigo) Central stenosis of spinal canal Excessive daytime sleepiness Insomnia, persistent Obesity (BMI 30-39.9) Obstructive sleep apnea of adult Osteoarthritis Rheumatoid arthritis Family History Father Hypertension Diabetes mellitus CAD (coronary artery disease) Mother Diabetes mellitus Hypertension Social History marital status: household members: none lives independently: Yes caregiver/support person: No housing: house Smoking Status: Former smoker alcohol intake: former substance use type: does not use during the past year weight has: remained stable Type(s) of exercise: restricted ROM & activity Discharge Plan Discharge Plan Patient Disposition: SNF Transfer to: [facility] Provider Discharge Comment: 77 year old male admitted for pain control after a traumatic T12 fracture. Mobilizing improving, pain control difficult but better on oxycontin, as needed oxycodone along with extensive non-opiate therapies. No bowel movement x1 week at discharge, given bisacodyl but may need to continue laxitive therapies at SNF. He has no abdominal pain, nausea, or vomiting. Discharge orders & Medications Prescriptions: New acetaminophen 325 mg Tablet 975 mg PO Q8H Qty: 60 0RF bisacodyl 10 mg Suppository [address] DAILY PRN (Reason: Constipation) Qty: 7 0RF docusate sodium 100 mg Capsule 100 mg PO BID Qty: 60 0RF lidocaine 5 % Adhesive Patch,Medicated 1 patch topical BEDTIME Qty: 15 0RF gabapentin [Neurontin] 300 mg Capsule 300 mg PO TID 30 Days Qty: 90 0RF oxycodone [OxyContin] 20 mg Tablet,Oral Only,Ext.Rel.12 Hr 40 mg PO Q8H 7 Days Qty: 42 0RF oxycodone 20 mg tablet 20 mg PO Q4HR PRN (Reason: Pain, Severe (7-10)) 7 Days Qty: 30 0RF polyethylene glycol 3350 17 gram Powder In Packet 17 g PO DAILY Qty: 30 0RF sennosides [senna] 8.6 mg Tablet 17.2 mg PO BEDTIME Qty: 30 0RF Continued aspirin 81 mg Tablet,Chewable 81 mg PO DAILY atorvastatin 20 mg Tablet 20 mg PO DAILY amlodipine 5 mg Tablet 5 mg PO DAILY vitamin B complex-folic acid 400 mcg Tablet Extended Release 1 tab PO DIRECTED Rx Instructions: takes 6 days a week furosemide 40 mg Tablet 40 mg PO DAILY metformin 500 mg Tablet 500 mg PO BID methotrexate sodium 10 mg Tablet 10 mg PO QWEEK montelukast 4 mg Tablet,Chewable 4 mg PO DAILY spironolactone 25 mg Tablet 12.5 mg PO DAILY glipizide 2.5 mg Tablet Extended Release 24hr 2.5 mg PO DAILY infliximab [Remicade] 100 mg Recon Soln 100 mg IV Q6W metoprolol tartrate 25 mg Tablet 25 mg PO DAILY (DME) Resmed Airsense 10 Auto CPAP aerosol Qty: 1 Dose Instruction: As directed Patient Comments: Pressure: 8-12 cmH2O DME: [facility] Rx Instructions: As directed Follow up/Referrals: Buzz Mills MD [Primary Care Provider] - Discharge Health Status Multidrug resistant organism: No MDRO Precautions: [place] Diet/Activity/Treatments Diet: Diet as Tolerated and Carb-consistent/Diabetic Liquid consistency: Normal/Thin Food texture: Regular [facility] Reason for rehabilitation: Recovery r/t decondition Rehab type: Physical therapy and Occupational therapy Visit Report/Discharge Packet Instructions: Vertebral Compression Fracture Stand Alone Forms: Patient Portal/API Discharge Data Primary Care Provider: uBzz Mills Discharges patient from system. Discharge Date/Time: 08/13/22 13:06
[2022-08-13] MEDS: INSULIN LISPRO 100 UNIT/ML 3ML VIAL SUBCUT ×2 (09:17→11:55)
[2022-08-13] MEDS: OXYCODONE ER 20 MG TAB 40 MG PO (09:18)
[2022-08-13] MEDS: ENOXAPARIN 40 MG/0.4 ML SYRINGE SUBCUT (09:19)
[2022-08-13] MEDS: BISACODYL 5 MG TABLET 10 MG PO (09:19)
[2022-08-13] MEDS: polyethylene glycoL 3350 17 GM POWD.PACK PO (09:19)
[2022-08-13] MEDS: GABAPENTIN 300 MG CAPSULE PO (09:20)
[2022-08-13] MEDS: METOPROLOL IR 25 MG TABLET PO (09:20)
[2022-08-13] MEDS: FUROSEMIDE 40 MG TABLET PO (09:20)
[2022-08-13] MEDS: ATORVASTATIN 20 MG TABLET PO (09:20)
[2022-08-13] MEDS: ASPIRIN EC 81 MG TABLET PO (09:20)
[2022-08-13] MEDS: AMLODIPINE 5 MG TABLET PO (09:20)
[2022-08-13] MEDS: DOCUSATE 100 MG CAPSULE PO (09:21)
[2022-08-13] MEDS: SPIRONOLACTONE 25 MG TABLET 12.5 MG PO (09:21)
[2022-08-13] MEDS: SODIUM CHLORIDE 0.9% FLUSH 10 ML IV (09:21)
[2022-08-13] MEDS: BISACODYL 10 MG SUPP PR (09:21)
[2022-08-13] MEDS: LIDOCAINE PATCH 1 EACH ADH..PATCH TOP (09:22)
--- NOTE | 2022-08-13 09:27 | CM.DPC ---
DCP Discharge SNF Per MD, pt is medically stable to d/c to SNF today and will complete discharge. SW called [facility] admissions [facility] and confirmed they can accept pt today and provide transport around 1200. DONALD met bedside with pt and confirmed he is still agreeable to d/c to [facility] today and per RN pt getting bowel meds as he has not had a bm for a few days and pt is hopeful to have a bm prior to d/c and SW alerted RN. DONALD faxed PAS[facility], signed med list, scripts, orders, d/c summ to [facility] for review. No updated COVID needed. Plan: Patient to d/c to [facility] today around 1200 via facility van prior to return home alone. LUIS E Centeno
[2022-08-13] MEDS: CALCITONIN,SALMON, NASAL SPRAY 1 SPRAYS NASAL (09:31)
[2022-08-13 10:38] LABS: COVID19 -Nasal RAPID Negative (Negative)
--- NOTE | 2022-08-13 13:00 | PC.NURSE ---
Day shift: Patient transferred to SNF - [facility]. A&Ox4. Back pain controlled with PRN oxycodone and scheduled oxycontin. Gave report to [facility] nurse, Loree. Patient given suppository, since he had not had BM in 4 days. Had small, pebbly brown stool with specs of blood prior to dischare. Discharged to [facility] at 12:15pm via [facility] transport.
--- NOTE | 2022-08-28 13:17 | PC.NURSE ---
Late entry: Pt given IV Dilaudid for intractable back pain. Pt worked with Pt and wanted pain medication ZAINAB. This literary writer gave and MAR scan of the medication was missed.
== END 2022-08-13 13:06 | DRG 551 ==
LOC: ED 12:43 → AC 20:12
PROVIDERS: Student in an Organized Health Care Education/Training Program; Admitting Provider Internal Medicine; Emergency Provider Emergency Medicine; Family Provider Family Medicine; PCP Family Medicine; Referring Provider Emergency Medicine; Visit Provider Internal Medicine
DX: S22.080A Wedge compression fracture of T11-T12 vertebra, initial encounter for closed fracture (principal); J96.01 Acute respiratory failure with hypoxia; N39.0 Urinary tract infection, site not specified; I42.9 Cardiomyopathy, unspecified; J44.9 Chronic obstructive pulmonary disease, unspecified; G47.33 Obstructive sleep apnea (adult) (pediatric); M06.9 Rheumatoid arthritis, unspecified; I10 Essential (primary) hypertension; E11.9 Type 2 diabetes mellitus without complications; I25.10 Atherosclerotic heart disease of native coronary artery without angina pectoris; W31.89XA Contact with other specified machinery, initial encounter; Z87.891 Personal history of nicotine dependence; Z79.84 Long term (current) use of oral hypoglycemic drugs; Z20.822 Contact with and (suspected) exposure to COVID-19
CPT/HCPCS: 36415; 51798; 71260; 72148; 74177; 80048; 80053; 81003; 81015; 82550; 82553; 82962; 83605; 83690; 83735; 84484; 85025; 87086; 87635; 93005; 93010; 94760; 96374; 96375; 96376; 97110; 97116; 97162; 97530; 99284; C9803; J0696; J1170; J1650; J1815; J2405; J3475; J8610; Q9967

== ENCOUNTER 2022-09-13 05:22 | Emergency (ER) | payer MEDICARE, OTHER, SELFPAY ==
[2022-08-08 21:45] VITALS: BMI 42.2
[2022-09-13] VITALS (11 sets, daily range): BP systolic 163–185; BP diastolic 72–78; PULSE 69–92; RESP 18–22; TEMP 37; O2SAT 89–98; BMI 36.8
--- NOTE | 2022-09-13 05:48 | DI.CT.S_ITS ---
PROCEDURE: CT KIDNEY URETER BLADDER (KUB) INDICATIONS: L side flank pain eval for stone TECHNIQUE: Axial sections were acquired from the lung bases to the pubic symphysis. Coronal and sagittal reformats were performed. For radiation dose reduction, the following was used: automated exposure control, adjustment of mA and/or kV according to patient size. COMPARISON: [facility], CT, CT CHEST ABD PEL W CON, 08/08/2022, 10:24. FINDINGS: Image quality: Excellent. Lung bases: Dependent atelectasis in posterior bilateral lung bases are seen. Heart: Heart size is normal, no pericardial effusion. Atherosclerotic calcifications are noted in coronary vessels. Small hiatal hernia is present. URINARY: Right Kidney: Nonobstructing stones are noted in mid to lower pole right kidney measures in aggregate 1.2 x 0.9 cm in size. No hydronephrosis. Right Ureter: No hydroureter. Left Kidney: Pebd-of-nevmbbbz left-sided hydronephrosis and perinephric fat stranding is seen. Left Ureter: 5 mm stone is seen in proximal to mid left ureter and measures 350 Hounsfield unit in density. More distal left ureter is normal in size. Bladder: Normal wall thickness. No stones. ABDOMEN: Liver: There is hepatomegaly. No discrete hepatic lesion.. Gallbladder: Gallbladder is within normal limits. Biliary ducts: Unremarkable. Pancreas: Unremarkable. Spleen: Unremarkable. Adrenal Glands: Unremarkable. Stomach and Bowel: Stomach, small bowel loops, and colon are unremarkable. Appendix is visualized and is normal in size and appearance. Peritoneum: No abnormal intraperitoneal fluid. No free air. Ventral Wall: No hernia. Abdominal Nodes: No enlarged retroperitoneal or mesenteric lymph nodes. Vessels: Aorta and inferior vena cava are normal in size. Moderate atherosclerotic calcifications in abdominal aorta is seen. PELVIS: Pelvic Organs: Unremarkable. Pelvic Nodes: Unremarkable. Miscellaneous: No inguinal hernias are seen. Jose David volar for penile prosthesis is seen in right lower pelvis adjacent to right anterior urinary bladder. There is a 6.3 x 4.2 cm well in capsulated complex appearing fluid density structure in posterior muscular of right upper thigh series 2, image 117. No other soft tissue abnormalities are seen. Bones: Patient is status post bilateral total hip arthroplasty with significant beam hardening artifacts. Superior endplate anterior compression deformities at T12 and L1 levels are seen with interval further loss of disc height compared to 08/08/2022 study. No suspicious bony lesions. IMPRESSION: 1. 5 mm proximal to mid left ureteral stone measures 350 Hounsfield unit in density. [id number] left-sided hydronephrosis and mild left perinephric fat stranding. 2. Nonobstructing stones in right kidney as above. No right-sided hydronephrosis or hydroureter. Normal appearing urinary bladder. 3. No bowel obstruction or abnormal bowel wall thickening. Normal appendix. No free fluid or free air. 4. Superior endplate compression deformities at T12 and L1 levels with interval further loss of disc height compared to 08/08/2022 study. 5. Well in capsulated fluid collection in posterior right upper thigh musculature which could represent organizing hematoma or seroma related to prior hip replacement. Cystic neoplastic process cannot be excluded. This can be further evaluated with CT or MR without and with contrast. Overall appearance is not typical for abscess collection. No significant discrepancies from preliminary reading. Dictated by: Sameer Khan M.D. on 09/13/2022 at 7:53 Approved by: Sameer Khan M.D. on 09/13/2022 at 8:40
[2022-09-13 06:18] LABS: Add Manual Diff / Slide Review NO; Basophils Absolute Auto 0 /uL (0-100); Basophils Percent Auto 0.2 % (0-2); Eosinophils Absolute Auto 0 /uL (0-450); Eosinophils Percent Auto 0.2 % (2-4); Hematocrit 43.3 % (41-53); Hemoglobin 14.8 g/dL (13.5-17.5); Lymphocytes Absolute Auto 2000 /uL (1100-4500); Lymphocytes Percent Auto 11.8 % (25-40); Mean Corpuscular HGB Conc 34.2 % (30-36); Mean Corpuscular Hemoglobin 32.6 PG (26-34); Mean Corpuscular Volume 95.4 fL (80-100); Monocytes Absolute Auto 900 /uL (0-900); Monocytes Percent Auto 5.2 % (3-14); Neutrophils Absolute Auto 13700 /uL (1500-7000); Neutrophils Percent Auto 82.6 % (50-75); Platelet Count 245 X10^3/uL (150-400); Red Blood Cell Count 4.54 X10^6/uL (4.5-5.9); Red Cell Distribution Width 13.3 % (11.6-14.8); White Blood Cell Count 16.6 X10^3/uL (4.5-11.0)
[2022-09-13 06:39] LABS: BUN Creatinine Ratio 24.1 (6-22); Blood Urea Nitrogen 21 mg/dL (9-20); Calcium 9.2 mg/dL (8.4-10.2); Carbon Dioxide 31 mmol/L (22-32); Chloride 95 mmol/L (98-107); Estimated Glomerular Filt Rate > 60 mL/min (>60); Glucose 184 mg/dL (80-110); HEMOLYSIS < 15 (0-50); Potassium 4.3 mmol/L (3.4-5.1); Sodium 136 mmol/L (137-145)
[2022-09-13] MEDS: KETOROLAC 30 MG/ML VIAL IV (07:24)
--- NOTE | 2022-09-13 07:38 | ED.ABDPAIN ---
HPI - Abdominal Pain General Chief Complaint: Abdominal Pain Stated Complaint: flank/groin pain- nausea Time Seen by Provider: 09/13/22 05:46 Source: patient Mode of arrival: EMS History of Present Illness HPI narrative: Patient is a 77-year-old male history of chronic pain, COPD, DEVORAH, rheumatoid arthritis, CAD with cardiomyopathy presents today with sudden onset of left flank pain. He recently had an MRI lumbar spine which showed a T12 subacute fracture on 08/09/2022. He started having sudden onset of left flank pain this evening despite taking his regular 40 mg OxyContin he is bilateral groin pain with nausea and vomiting. He denies any fever or chills. He thought that his urine looked abnormal but denies any gross blood or brown color he said it was cloudy. Related Data Home Medications Medication Instructions Recorded Confirmed Resmed Airsense 10 Auto CPAP #1 ea 04/28/18 08/10/22 amlodipine 5 mg tablet 5 mg PO DAILY 08/08/22 08/08/22 aspirin 81 mg chewable tablet 81 mg PO DAILY 08/08/22 08/08/22 atorvastatin 20 mg tablet 20 mg PO DAILY 08/08/22 08/08/22 furosemide 40 mg tablet 40 mg PO DAILY 08/08/22 08/08/22 glipizide 2.5 mg tablet, extended 2.5 mg PO DAILY 08/08/22 08/08/22 release 24 hr infliximab 100 mg intravenous 100 mg IV Q6W 08/08/22 08/08/22 solution (Remicade) metformin 500 mg tablet 500 mg PO BID 08/08/22 08/08/22 methotrexate sodium 10 mg tablet 10 mg PO QWEEK 08/08/22 08/08/22 metoprolol tartrate 25 mg tablet 25 mg PO DAILY 08/08/22 08/08/22 montelukast 4 mg chewable tablet 4 mg PO DAILY 08/08/22 08/08/22 spironolactone 25 mg tablet 12.5 mg PO DAILY 08/08/22 08/08/22 vitamin B complex-folic acid ER 1 tab PO DIRECTED 08/08/22 08/08/22 400 mcg tablet,extended release Previous Rx's Medication Instructions Recorded acetaminophen 325 mg tablet 975 mg PO Q8H #60 tabs 08/13/22 bisacodyl 10 mg rectal suppository 10 mg VA DAILY PRN Constipation #7 08/13/22 ea docusate sodium 100 mg capsule 100 mg PO BID #60 caps 08/13/22 lidocaine 5 % topical patch 1 patch topical BEDTIME #15 ea 08/13/22 polyethylene glycol 3350 17 gram 17 g PO DAILY #30 ea 08/13/22 oral powder packet sennosides 8.6 mg tablet (senna) 17.2 mg PO BEDTIME #30 tabs 08/13/22 cephalexin 500 mg capsule 500 mg PO BID 7 days #14 caps 09/13/22 hydrocodone 5 mg-acetaminophen 325 1 tab PO Q6H PRN pain #10 tabs 09/13/22 mg tablet Allergies Allergy/AdvReac Type Severity Reaction Status Date / Time No Known Drug Allergies Allergy Verified 08/08/22 10:30 Review of Systems Review of Systems ROS Unobtainable: All systems reviewed & are unremarkable except as noted in HPI and below Patient History Medical History (Updated 09/13/22 @ 10:29 by Gem Bah DO) BPPV (benign paroxysmal positional vertigo) Central stenosis of spinal canal Excessive daytime sleepiness Insomnia, persistent Obesity (BMI 30-39.9) Obstructive sleep apnea of adult Osteoarthritis Rheumatoid arthritis Family History Father Hypertension Diabetes mellitus CAD (coronary artery disease) Mother Diabetes mellitus Hypertension Social History marital status: household members: none lives independently: Yes caregiver/support person: No housing: house Smoking Status: Former smoker alcohol intake: former substance use type: does not use during the past year weight has: remained stable Type(s) of exercise: restricted ROM & activity Smoking Status: Former smoker Substance Use Type: does not use Exam Initial Vital Signs Initial Vital Signs: Vital Signs Temperature 98.6 F 09/13/22 05:29 Pulse Rate 70 09/13/22 05:29 Respiratory Rate 22 09/13/22 05:29 Blood Pressure 182/77 H 09/13/22 05:29 Pulse Oximetry 96 09/13/22 05:29 Oxygen Delivery Method Room Air 09/13/22 05:29 GENERAL: Alert pleasant 77-year-old male HEENT: Head atraumatic,EOMI, pupils reactive, face symmetric, moist mucous membranes CARDIOVASCULAR: Regular rate and rhythm without murmurs, rubs or gallops. RESPIRATORY: Breath sounds equal bilaterally, no wheezes rales or rhonchi. ABDOMEN: Soft, nontender. Normoactive bowel sounds all 4 quadrants. No guarding or rebound. : Mild left CVA tenderness EXTREMITIES: Normal range of motion, no clubbing or edema. Neurovascularly intact NEUROLOGICAL: Alert and oriented x4.Normal gait and speech. SKIN: Warm, dry, no laceration, no petechiae, no rashes or lesions. Course Orders Ordered: ED Orders 09/13/22 10:00 Urine Culture Stat Urine Microscopic Stat Discontinued Medications Hydromorphone HCl (Hydromorphone 1 Mg Inj) 1 mg IV NOW ONE Stop: 09/13/22 08:05 Last Admin: 09/13/22 08:13 Dose: 1 mg Documented By: AT Hydromorphone HCl (Hydromorphone 0.5 Mg Inj) 0.5 mg IV NOW ONE Stop: 09/13/22 09:11 Last Admin: 09/13/22 09:34 Dose: 0.5 mg Documented By: AT Sodium Chloride (Normal Saline 0.9%) 1,000 mls @ 1,000 mls/hr IV BOLUS ONE Stop: 09/13/22 09:01 Last Infusion: 09/13/22 09:08 Dose: 0 mls/hr Documented By: Admin: 09/13/22 08:13 Dose: 1,000 mls/hr Documented By: AT Sodium Chloride (Normal Saline 0.9%) 1,000 mls @ 1,000 mls/hr IV BOLUS ONE Stop: 09/13/22 10:09 Last Infusion: 09/13/22 10:35 Dose: 0 mls/hr Documented By: Admin: 09/13/22 09:34 Dose: 1,000 mls/hr Documented By: AT Ceftriaxone Sodium 1,000 mg/ (Sodium Chloride) 100 mls @ 200 mls/hr IV NOW ONE Stop: 09/13/22 10:23 Last Infusion: 09/13/22 11:15 Dose: 0 mls/hr Documented By: Admin: 09/13/22 10:35 Dose: 200 mls/hr Documented By: AT Ketorolac Tromethamine (Ketorolac 30 Mg/Ml Vial) 30 mg IV NOW ONE Stop: 09/13/22 06:52 Last Admin: 09/13/22 07:24 Dose: 30 mg Documented By: AT Ondansetron HCl (Ondansetron 4 Mg/2 Ml Inj) 4 mg IV NOW ONE Stop: 09/13/22 08:15 Last Admin: 09/13/22 08:21 Dose: 4 mg Documented By: AT Vital Signs Vital signs: Vital Signs - 8 hr 09/13/22 10:03 09/13/22 10:30 09/13/22 10:31 Pulse Rate 75 82 81 Respiratory Rate 18 Blood Pressure Pulse Oximetry 95 92 90 L Oxygen Delivery Method Room Air Room Air 09/13/22 10:31 09/13/22 11:00 09/13/22 11:00 Pulse Rate 92 H Respiratory Rate 18 Blood Pressure 185/75 H 166/76 H Pulse Oximetry 92 Oxygen Delivery Method Room Air MDM - Abdominal Pain Lab Data 09/13/22 05:55 09/13/22 05:55 Labs: Lab Results 09/13/22 09/13/22 09/13/22 Range/Units 05:55 05:55 10:00 WBC 16.6 H (4.5-11.0) X10^3/uL RBC 4.54 (4.5-5.9) X10^6/uL Hgb 14.8 (13.5-17.5) g/dL Hct 43.3 (41-53) % MCV 95.4 (80-100) fL MCH 32.6 (26-34) PG MCHC 34.2 (30-36) % RDW 13.3 (11.6-14.8) % Plt Count 245 (150-400) X10^3/uL Neut % (Auto) 82.6 H (50-75) % Lymph % (Auto) 11.8 L (25-40) % [place] % (Auto) 5.2 (3-14) % Eos % (Auto) 0.2 L (2-4) % Baso % (Auto) 0.2 (0-2) % Neut # (Auto) 23877 H (7716-3458) /uL Lymph # (Auto) 2000 (6674-9964) /uL [place] # (Auto) 900 (0-900) /uL Eos # (Auto) 0 (0-450) /uL Baso # (Auto) 0 (0-100) /uL Sodium 136 L (137-145) mmol/L Potassium 4.3 (3.4-5.1) mmol/L Chloride 95 L (98-107) mmol/L Carbon Dioxide 31 (22-32) mmol/L BUN 21 H (9-20) mg/dL Creatinine 0.87 (0.66-1.25) mg/dL Estimated GFR > 60 (>60) mL/min BUN/Creatinine Ratio 24.1 H (6-22) Glucose 184 H (80-110) mg/dL Calcium 9.2 (8.4-10.2) mg/dL Urine RBC 30-100/hpf H (0-5/HPF) Urine WBC 10-30/hpf H (0-5/HPF) Ur Squamous Epith Cells 0-1 /hpf (0-5/HPF) Amorphous Sediment 1+ Urine Bacteria Many (>30) H (None) Urine Mucus 1+ H (Negative) Point of care testing: Urine Dip Bedside Urine Glucose Negative Bedside Urine Bilirubin - Negative Bedside Urine Ketone +/- 5 Urine Specific [place] 1.020 Bedside Urine Occult Blood +++ Bedside Urine pH 6.0 Bedside Urine Protein + 30 Bedside Urine Urobilinogen - Negative Bedside Urine Nitrite + Positive Bedside Urine Leukocytes +/- [address] scan - abdomen/pelvis: Radiologist's Impression: PROCEDURE:? CT KIDNEY URETER BLADDER (KUB) ? INDICATIONS:? L side flank pain eval for stone ? TECHNIQUE:? Axial sections were acquired from the lung bases to the pubic symphysis.? Coronal and sagittal reformats were performed.? For radiation dose reduction, the following was used: ?automated exposure control, adjustment of mA and/or kV according to patient size.? ? COMPARISON:? [facility], CT, CT CHEST ABD PEL W CON, 08/08/2022, 10:24. ? FINDINGS:? Image quality:? Excellent.? ? Lung bases:? Dependent atelectasis in posterior bilateral lung bases are seen. Heart:? Heart size is normal, no pericardial effusion.? Atherosclerotic calcifications are noted in coronary vessels.? Small hiatal hernia is present. ? URINARY: Right Kidney:? Nonobstructing stones are noted in mid to lower pole right kidney measures in aggregate 1.2 x 0.9 cm in size.? No hydronephrosis.? Right Ureter:? No hydroureter. ? Left Kidney:? [id number] left-sided hydronephrosis and perinephric fat stranding is seen. Left Ureter:? 5 mm stone is seen in proximal to mid left ureter and measures 350 Hounsfield unit in density.? More distal left ureter is normal in size. ? Bladder:? Normal wall thickness. No stones. ? ? ? ABDOMEN: Liver:? There is hepatomegaly.? No discrete hepatic lesion..? ? Gallbladder:? Gallbladder is within normal limits. Biliary ducts:? Unremarkable.? ? Pancreas:? Unremarkable.? ? Spleen:? Unremarkable.? ? Adrenal Glands:? Unremarkable.? ? ? Stomach and Bowel:? Stomach, small bowel loops, and colon are unremarkable.? Appendix is visualized and is normal in size and appearance. Peritoneum:? No abnormal intraperitoneal fluid.? No free air.? ? Ventral Wall: ? No hernia.? Abdominal Nodes:? No enlarged retroperitoneal or mesenteric lymph nodes.? Vessels:? Aorta and inferior vena cava are normal in size.? Moderate atherosclerotic calcifications in abdominal aorta is seen.? ? PELVIS: Pelvic Organs:? Unremarkable.? ? Pelvic Nodes: Unremarkable. Miscellaneous: No inguinal hernias are seen.? Jose David volar for penile prosthesis is seen in right lower pelvis adjacent to right anterior urinary bladder. ? ? There is a 6.3 x 4.2 cm well in capsulated complex appearing fluid density structure in posterior muscular of right upper thigh series 2, image 117.? No other soft tissue abnormalities are seen. ? Bones:? Patient is status post bilateral total hip arthroplasty with significant beam hardening artifacts.? Superior endplate anterior compression deformities at T12 and L1 levels are seen with interval further loss of disc height compared to 08/08/2022 study.? No suspicious bony lesions. ? IMPRESSION:? 1. 5 mm proximal to mid left ureteral stone measures 350 Hounsfield unit in density.? [id number] left-sided hydronephrosis and mild left perinephric fat stranding. ? 2. Nonobstructing stones in right kidney as above.? No right-sided hydronephrosis or hydroureter.? Normal appearing urinary bladder. ? 3. No bowel obstruction or abnormal bowel wall thickening.? Normal appendix.? No free fluid or free air. ? 4. Superior endplate compression deformities at T12 and L1 levels with interval further loss of disc height compared to 08/08/2022 study. ? 5. Well in capsulated fluid collection in posterior right upper thigh musculature which could represent organizing hematoma or seroma related to prior hip replacement.? Cystic neoplastic process cannot be excluded.? This can be further evaluated with CT or MR without and with contrast.? Overall appearance is not typical for abscess collection. ? No significant discrepancies from preliminary reading. ? ? Dictated by: Sameer Khan M.D. on 09/13/2022 at 7:53 ? ? [facility] Narrative Medical decision making narrative: Patient 77-year-old male with history of recent compression fracture at T12 diagnosed by MRI presents today with sudden onset left flank pain comes and goes in waves. He is confirmed to have left 5 mm ureteral stone. He was also found to have a very large right renal pelvis stone. He takes OxyContin twice daily for chronic ongoing pain which is not helping with his current pain. He is had Toradol 2 doses of Dilaudid and Zofran to help with his pain which seems to be a bit better. He is found to also have leukocytosis and UTI with nitrates, without evidence of sepsis. Vitals are relatively stable his oxygen does decrease some he reports that his oxygen does this at home as well however his oxygen is easily weaned off he is not requiring any. He is given 1 dose of Rocephin and an antibiotic. Encouraged him to follow-up with urology for the large right renal stone I anticipate that the left stone will pass without any intervention there is no evidence of hydronephrosis on the CT. Discharge Plan Departure Patient Disposition: Home Clinical Impression: Kidney calculi, Kidney stone on left side, Acute UTI Instructions: DI for Kidney Stones, DI for Urinary Tract Infection (UTI) Activity Restrictions/Additional Instructions: *You have been diagnosed with kidney stone, UTI *What to do: At this time stay hydrated I suspect that you will pass her kidney stone in the next 2-7 days. I do recommend that you see a urologist a very large stone right side as well. *Continue to take medications as directed Keflex 500 mg twice a day for 7 days Bennet 1 tablet every 6 hours if needed for pain *Follow up with your primary care provider in 2-3 days or call [phone] Call Urology to schedule follow-up appointment *Return to ER if you should have increasing pain persistent vomiting fever or any new, worsening or concerning symptoms CONTROLLED SUBSTANCE DISCHARGE (Narcotoic/benzodiazepine/Flexeril/Phenergan) 1. You have been prescribed narcotic medications, it does have acetaminophen/Tylenol/paracetamol in it, DO NOT TAKE MORE THAN 4,00mg in 24 hours of Tylenol. TRAMADOL DOES NOT CONTAIN TYLENOL 2. Please understand that we cannot provide further refills of narcotics, benzodiazepines or controlled substances through the ED and her pain management will need to be through your provider. 3. While on these medications you cannot drive or operate heavy machinery. 4. You cannot sign legal documents or perform any duties such as this. 5. As long as you're taking opiate pain medications he should also be taking a stool softener such as Colace, Dulcolax, MiraLAX or prune juice, to help avoid constipation. Prescriptions: New hydrocodone-acetaminophen 5-325 mg tablet 1 tab PO Q6H PRN (Reason: pain) Qty: 10 0RF cephalexin 500 mg capsule 500 mg PO BID 7 Days Qty: 14 0RF No Action aspirin 81 mg Tablet,Chewable 81 mg PO DAILY atorvastatin 20 mg Tablet 20 mg PO DAILY amlodipine 5 mg Tablet 5 mg PO DAILY vitamin B complex-folic acid 400 mcg Tablet Extended Release 1 tab PO DIRECTED Rx Instructions: takes 6 days a week furosemide 40 mg Tablet 40 mg PO DAILY metformin 500 mg Tablet 500 mg PO BID methotrexate sodium 10 mg Tablet 10 mg PO QWEEK montelukast 4 mg Tablet,Chewable 4 mg PO DAILY spironolactone 25 mg Tablet 12.5 mg PO DAILY glipizide 2.5 mg Tablet Extended Release 24hr 2.5 mg PO DAILY infliximab [Remicade] 100 mg Recon Soln 100 mg IV Q6W metoprolol tartrate 25 mg Tablet 25 mg PO DAILY acetaminophen 325 mg Tablet 975 mg PO Q8H Qty: 60 0RF bisacodyl 10 mg Suppository 10 mg VA DAILY PRN (Reason: Constipation) Qty: 7 0RF docusate sodium 100 mg Capsule 100 mg PO BID Qty: 60 0RF lidocaine 5 % Adhesive Patch,Medicated 1 patch topical BEDTIME Qty: 15 0RF polyethylene glycol 3350 17 gram Powder In Packet 17 g PO DAILY Qty: 30 0RF sennosides [senna] 8.6 mg Tablet 17.2 mg PO BEDTIME Qty: 30 0RF (DME) Resmed Airsense 10 Auto CPAP aerosol Qty: 1 Dose Instruction: As directed Patient Comments: Pressure: 8-12 cmH2O DME: [facility] Rx Instructions: As directed Referrals: Buzz Mills MD [Primary Care Provider] - Stand Alone Forms: Patient Portal/API
[2022-09-13] MEDS: SODIUM CHLORIDE 0.9% 1,000 ML 1000 ML IV ×2 (08:13→09:34)
[2022-09-13] MEDS: HYDROMORPHONE 1 MG INJ IV (08:13)
[2022-09-13] MEDS: ONDANSETRON 4 MG/2 ML INJ IV (08:21)
[2022-09-13] MEDS: HYDROMORPHONE 0.5 MG INJ IV (09:34)
[2022-09-13] MEDS: cefTRIAXone 1,000 MG in SODIUM CHLORIDE 0.9% 100 ML 200 MG IV (10:35)
[2022-09-13 10:56] LABS: RBC Urine 30-100/HPF (0-5/HPF)
[2022-09-13 10:57] LABS: Amorphous Sediment Urine 1+; Bacteria Urine Many (>30); Mucus Urine 1+ (Negative); Squamous Epithelial Cell Urine 0-1 /HPF (0-5/HPF); WBC Urine 10-30/HPF (0-5/HPF)
== END 2022-09-13 11:17 | disposition home or self-care (01) ==
PROVIDERS: Emergency Medicine; Emergency Provider Emergency Medicine; Family Provider Family Medicine; PCP Family Medicine
DX: N20.0 Calculus of kidney (principal); N39.0 Urinary tract infection, site not specified; Z79.899 Other long term (current) drug therapy
CPT/HCPCS: 51798; 74176; 80048; 81003; 81015; 85025; 87077; 87086; 87186; 96361; 96365; 96375; 96376; 99283; 99284; J0696; J1170; J1885; J2405

== ENCOUNTER → 2022-10-28 11:49 | Outpatient (CLI) | payer MEDICARE, OTHER, SELFPAY ==
[2022-08-08 21:45] VITALS: BMI 42.2
--- NOTE | 2022-10-28 11:52 | DI.RAD.S_ITS ---
PROCEDURE: XR KUB INDICATIONS: Kidney stones TECHNIQUE: One view of the abdomen acquired. COMPARISON: [facility], CT, CT KIDNEY URETER BLADDER (KUB), 09/13/2022, 6:21. FINDINGS: Surgical changes and devices: None. Bowel: Bowel gas pattern is normal. Soft tissues: 1.3 centimeter cluster of stones projecting over the lower pole of the right kidney. Previously identified left renal stone is not visualized by plain film radiograph. Visualized solid organ contours appear normal in size. Bones: No suspicious bony lesions. Partially visualized bilateral hip arthroplasties and penile implant. IMPRESSION: Right-sided renal stones. Dictated by: Jesusita Viera MD, PhD on 10/28/2022 at 13:06 Approved by: Jesusita Viera MD, PhD on 10/28/2022 at 13:08
== END ==
PROVIDERS: Family Provider Family Medicine; PCP Family Medicine; Referring Provider Urology; Visit Provider Urology
DX: N20.2 Calculus of kidney with calculus of ureter (principal); S22.080A Wedge compression fracture of T11-T12 vertebra, initial encounter for closed fracture; F11.90 Opioid use, unspecified, uncomplicated; M54.9 Dorsalgia, unspecified
CPT/HCPCS: 74018; 81002; 99214

== ENCOUNTER → 2022-11-03 11:46 | Outpatient (CLI) | payer MEDICARE, OTHER, SELFPAY ==
[2022-08-08 21:45] VITALS: BMI 42.2
--- NOTE | 2022-11-03 11:47 | DI.CT.S_ITS ---
PROCEDURE: CT ABDOMEN PELVIS WO CON INDICATIONS: Follow-up kidney stones, question passed left ureteral calcu TECHNIQUE: Noncontrast 5 mm thick sections acquired from the diaphragms to the symphysis. 5 mm coronal and sagittal reformats were then performed. For radiation dose reduction, the following was used: automated exposure control, adjustment of mA and/or kV according to patient size. COMPARISON: [facility], CT, CT KIDNEY URETER BLADDER (KUB), 09/13/2022, 6:21. FINDINGS: Image quality: Excellent. ABDOMEN: Lung bases: Mild dependent atelectasis. Heart size is normal. Coronary artery calcifications are present. Solid organs: Liver is normal in enlarged. Gallbladder is within normal limits . Pancreas is normal in contours. Fatty atrophy of the pancreas. Spleen is normal in size. No adrenal nodules. No significant change in size of a 12 x 9 mm stone in the right mid to lower pole of the kidney. This is nonobstructing. No hydronephrosis. Previous stone seen within the left ureter has pass. No stones are seen within the left kidney. No hydronephrosis or hydroureter bilaterally. Nonspecific perinephric stranding. Right renal cyst is unchanged in appearance. Peritoneum and bowel: Unenhanced bowel loops demonstrate normal wall thickness and caliber. No free fluid or air. Nodes and vessels: No retroperitoneal or mesenteric adenopathy by size criteria. Aorta and inferior vena cava are normal in caliber. Moderate atherosclerotic vascular calcifications. Miscellaneous: No ventral hernias. PELVIS: Genitourinary: Urinary bladder is decompressed, limiting evaluation. Penile prosthesis in place. Miscellaneous: No inguinal hernias or adenopathy. Again seen thick-walled cystic structure within the superior posterior musculature of the right thigh. Bones: No suspicious bony lesions. Degenerative changes of the lumbar spine. Compression deformities of the T12 and L1 vertebral bodies are similar to prior. No vertebral body compression fractures. Bilateral hip arthroplasties. IMPRESSION: 1. The stone in the proximal left ureter has passed. No hydronephrosis or hydroureter. 2. Stable non-obstructing stone within the right kidney measuring 12 mm. 3. Again seen thick walled cystic structure within the superior posterior musculature of the right thigh, not completely included within the field of view. Recommend dedicated CT or MRI with and without contrast for further evaluation. Neoplastic lesion cannot be excluded. 4. Other chronic findings are stable compared to prior and described above. Dictated by: Jasper Pitts M.D. on 11/03/2022 at 15:22 Approved by: Jasper Pitts M.D. on 11/03/2022 at 15:32
== END ==
PROVIDERS: Family Provider Family Medicine; PCP Family Medicine; Referring Provider Urology; Visit Provider Urology
DX: N20.0 Calculus of kidney (principal)
CPT/HCPCS: 74176

== ENCOUNTER 2022-12-16 06:41 | Day surgery (SDC) | payer MEDICARE, OTHER, SELFPAY ==
[2022-08-08 21:45] VITALS: BMI 42.2
[2022-12-01 11:13] VITALS: BMI 36.8
[2022-12-16] VITALS (11 sets, daily range): BP systolic 144–170; BP diastolic 54–98; PULSE 62–78; RESP 12–24; TEMP 35.6–36.4; O2SAT 93–99; BMI 36.8
[2022-12-16] MEDS: LACTATED RINGERS 1,000 ML 42 ML IV ×2 (07:39→12:14)
--- NOTE | 2022-12-16 07:40 | PM.PREOP ---
Pre-operative Note COVID-19 COVID-19 status: Not tested Criteria for continued procedure: Non-surgical alternatives not available or appropriate per current SOC Interval Note History & Physical reviewed/Exam performed by Physician: Yes Changes to H&P: No
[2022-12-16] MEDS: CEFAZOLIN VIAL 3 GM in SODIUM CHLORIDE 0.9% 100 ML IV (08:10)
--- NOTE | 2022-12-16 08:19 | SUR.OPER ---
Lithotomy on ESWL table, head on pillow, arms padded and tucked at sides. Legs secured in ESWL table lithotomy stirrups.
--- NOTE | 2022-12-16 09:00 | PM.OP.1 ---
Procedure & Clinicians Procedure: Right extracorporeal shockwave lithotripsy, cystoscopy with right ureteral stent placement Same procedure as scheduled: Yes Indications: This very pleasant gentleman presented with left ureteral colic was noted to have a left ureteral stone which he passed. He also had 2 stones in the right kidney presents this time for treatment of the stones via extracorporeal shockwave lithotripsy and right ureteral stent placement. Surgeon: Rakan Christensen Click Yes if Unassisted: Yes Anesthesia Type: General Operative Notes Findings: At cystoscopy the patient had a penile prosthesis in place pump in the scrotum and cylinders right and left the right-sided cylinder was advanced slightly more than the left tip. Within urethra there were some large caliber stricture. The ureteral orifices were in normal position with clear efflux the prostate showed moderate obstructive character. With a high bladder neck no other mucosal lesions or abnormalities were noted in the bladder. The patient received 2000 shocks at level 7 and the stone appeared to be completely fragmented. A 7 Romanian by multilink stent was left in the right collecting system without a string. There were no other abnormalities. Closure Type: not applicable Specimen(s): none sent Prosthetic devices, grafts, tissues, transplants, or devices: Right-sided ureteral stent 7 Romanian by multi length no string Estimated Blood Loss (mL): 0 Blood products transfused: none Procedure in detail: After informed consent was obtained, the patient was identified and brought to the operating room where he was placed in the supine position on the Lithotripter. There anesthesia was induced and maintained. Showing an adequate level of anesthesia the patient was transferred to the lithotomy position where he was prepped, draped, prepared for Transurethral procedure. After time-out, ensuring an adequate level of anesthesia prepping and draping a 22 Romanian cystoscope was passed through the urethra into the bladder where cystoscopy was performed. The right ureteral orifice was identified and a hybrid wire was passed up into the collecting system under fluoroscopic visualization. Stent was then passed over the wire and positioned in the renal pelvis under fluoroscopic visualization and in the bladder under direct vision the nylon horn is was removed in the stent was left in good position. The patient then had the stone targeted via the imaging system and shockwave delivered at level 7 for a total of 2000 shocks. Periodic reimaging and re localization was performed to ensure maximal energy delivered to the stone. At 2000 shocks it appeared the stone was well fragmented shockwave head was rotated out and fluoroscopy performed the stone appeared well fragmented. Of note after cystoscope was removed there was some oozing at the meatus a 22 Romanian catheter was placed and left in place for 7 minutes by the clock this appeared to tamponade and stop the oozing. At the end of the procedure there was no bleeding and hemostasis appeared to be achieved the stone appeared to be well fragmented the patient tolerated the procedure well and there were no complications. At this point the patient was awakened transferred to the postanesthesia care unit for recovery patient is to follow up my office in 10-14 days straining his urine and saving any fragments and bringing them to follow-up. At his follow-up he will have a KUB to ascertain the degree of stone fragment passage. Again there were no complications Complications: none Post-operative Condition: stable Disposition: PACU Plan for aftercare: Follow-up my office 10-14 days with a KUB patient is to strain his urine and save any fragments and bring these to follow-up.
[2022-12-16] MEDS: ONDANSETRON 4 MG/2 ML INJ IV (09:22)
[2022-12-16] MEDS: hydrOXYzine pamoate 25 MG CAPSULE PO (09:22)
[2022-12-16] MEDS: HYDROCODONE/ACET 5/325 TABLET 1 TAB PO ×2 (09:22→13:36)
[2022-12-16] MEDS: PHENAZOPYRIDINE 100 MG TABLET 200 MG PO (09:38)
[2022-12-16] MEDS: OXYBUTYNIN 5 MG TABLET PO (10:23)
--- NOTE | 2022-12-16 10:27 | SUR.PHASEII ---
Pt up to bathroom. Unable to void. Blood driping from meatus. Approx 100ml out and clotted in hat. Small stool in toilet. Bladder scan 54 ml. Pt resting at this time.
--- NOTE | 2022-12-16 12:00 | SUR.PHASEII ---
Discussed with Dr Christensen patient with bleeding from meatus, no void yet and minimal urine in bladder. Patient has not taken for 40mg of Lasix today. Plan to give lasix, monitor urine and eval if patient able to then void.
[2022-12-16] MEDS: FUROSEMIDE 20 MG/2 ML VIAL IV (12:24)
[2022-12-16] MEDS: FUROSEMIDE 20 MG TABLET PO (12:28)
--- NOTE | 2022-12-16 12:30 | SUR.PHASEII ---
Dr Christensen to bedside. Assessed patient bleeding. Very small blood clot in attends. No vod yet. Plan for lasix and small amt IVF and see if patient able to void or if he will need a catheter.
--- NOTE | 2022-12-16 14:41 | SUR.PHASEII ---
Patient with a large void in the toilet and then 50ml bladder scan post void residual. Pt rested, medicated with 1 pain pill, rested and then now up to BR again. Steady on feet. Tolerating cofffee.
== END 2022-12-16 14:55 | disposition home or self-care (01) ==
PROVIDERS: Family Provider Family Medicine; PCP Family Medicine; Referring Provider Urology; Visit Provider Urology
PROC: (CPT 50590; principal; 2022-12-16 07:45)
PROC: (CPT 50590; 2022-12-16 07:45)
DX: N20.0 Calculus of kidney (principal); Z87.442 Personal history of urinary calculi
CPT/HCPCS: 50590; 52332; 93005; 93010; J0330; J0690; J1170; J1940; J2405; J3010; J3490

== ENCOUNTER → 2022-12-29 12:30 | Outpatient (CLI) | payer MEDICARE, OTHER, SELFPAY ==
[2022-08-08 21:45] VITALS: BMI 42.2
--- NOTE | 2022-12-29 12:32 | DI.RAD.S_ITS ---
PROCEDURE: XR KUB INDICATIONS: Kidney stone TECHNIQUE: One view of the abdomen acquired. COMPARISON: [facility], CT, CT ABDOMEN PELVIS WO CON, 11/03/2022, 12:02. [facility], CR, XR KUB, 10/28/2022, 11:47. FINDINGS: Surgical changes and devices: There is a right ureteral stent in expected position. Bowel: Bowel gas pattern is normal. Soft tissues: The right inferior pole renal stone seen on the last exam and CT is not well seen on this exam. Visualized solid organ contours appear normal in size. Bones: No suspicious bony lesions. IMPRESSION: Right ureteral stent in expected position. The right renal stone seen on the last exam is not well seen on the current exam. Dictated by: Mirella Greenberg M.D. on 12/29/2022 at 13:58 Approved by: Mirella Greenberg M.D. on 12/29/2022 at 14:00
== END ==
PROVIDERS: Family Provider Family Medicine; PCP Family Medicine; Referring Provider Urology; Visit Provider Urology
DX: N20.0 Calculus of kidney (principal); Z96.0 Presence of urogenital implants
CPT/HCPCS: 74018; 82365

== ENCOUNTER → 2022-12-29 14:02 | Outpatient (CLI) | payer MEDICARE, OTHER, SELFPAY ==
[2022-08-08 21:45] VITALS: BMI 42.2
[2023-01-08 13:32] LABS: Ca oxalate dihydrate 70 % (.); Ca oxalate monohydr 10 % (.); Hydroxyapatite 20 % (.); Size <1 mm (.)
== END ==
PROVIDERS: Family Provider Family Medicine; PCP Family Medicine; Visit Provider Urology
DX: N20.0 Calculus of kidney (principal)
CPT/HCPCS: 82365

== ENCOUNTER → 2023-01-13 15:20 | Outpatient (CLI) | payer MEDICARE, OTHER, SELFPAY ==
[2022-08-08 21:45] VITALS: BMI 42.2
--- NOTE | 2023-01-13 15:24 | DI.RAD.S_ITS ---
PROCEDURE: XR KUB INDICATIONS: kidney stones TECHNIQUE: One view of the abdomen acquired. COMPARISON: [facility], , XR KUB, 12/29/2022, 12:58. FINDINGS: Surgical changes and devices: Bilateral hip arthroplasty. Double-J right ureteral stent present. Bowel: Bowel gas pattern is normal. Soft tissues: No suspicious abdominal calcifications. Visualized solid organ contours appear normal in size. Bones: No suspicious bony lesions. IMPRESSION: Right ureteral stent, unchanged Approved by: Rory Parker M.D. on 01/13/2023 at 17:43
--- NOTE | 2023-01-13 15:26 | DI.MRI.S_ITS ---
PROCEDURE: MR LUMBAR SPINE WO CON INDICATIONS: Muscle spasm of back TECHNIQUE: Noncontrast sagittal T1 spin echo and T2 fast echo, sagittal STIR, and T2 fast spin echo through the lumbar spine. In cases with scoliosis, additional coronal T2 fast spin echo may be performed. COMPARISON: [facility], CR, XR KUB, 01/13/2023, 15:52. [facility], MR, MR LUMBAR SPINE WO CON, 08/11/2022, 14:15. FINDINGS: Image quality: Excellent. Alignment and Curvature: 5 lumbar type vertebral bodies are present by plain film. There is mild kyphosis at T12, new since the prior examination. 2 mm of retrolisthesis of L1 on L2, L2 on L3, and L3 on L4. Bone Marrow: There is been further, moderate wedging of the T12 vertebral body, which demonstrates linear low T1/T2 signal intensity within its superior endplate, with mild surrounding ill-defined T2 signal elevation.. Mild reactive signal throughout the endplates of the lumbar and lower thoracic spine. Spinal Cord: Conus medullaris terminates at the mid L1 level. Visualized cord demonstrates normal signal and size. Paraspinous Soft Tissues: No paravertebral masses. T11-T12: Moderate disc desiccation. Mild diffuse disc bulge with superimposed right posterolateral broad-based protrusion. Mild facet and ligamentum flavum hypertrophy. Mild epidural lipomatosis. Mild canal stenosis. Mild bilateral foraminal stenosis. No significant change. T12-L1: Moderate disc desiccation. Mild disc height loss and diffuse disc bulge. Mild facet and ligamentum flavum hypertrophy. Mild epidural lipomatosis. Mild canal stenosis. Mild bilateral foraminal stenosis. No significant change. L1-L2: Moderate disc desiccation. Mild diffuse disc bulge. Mild facet and ligamentum flavum hypertrophy. Mild epidural lipomatosis. Mild canal stenosis. Mild bilateral foraminal stenosis. No significant change. L2-L3: Moderate disc desiccation. Mild diffuse disc bulge. Mild facet and ligamentum flavum hypertrophy. Mild epidural lipomatosis. Mild canal stenosis. Mild bilateral foraminal stenosis. No significant change. L3-L4: Moderate disc desiccation. Mild diffuse disc bulge. Mild facet and ligamentum flavum hypertrophy. Mild epidural lipomatosis. Mild canal stenosis. Moderate bilateral foraminal stenosis. No significant change. L4-L5: Moderate disc desiccation. Mild diffuse disc bulge. Mild facet and ligamentum flavum hypertrophy. Mild canal stenosis. Moderate subarticular foraminal stenosis bilaterally. No significant change. L5-S1: Mild diffuse disc bulge. Mild bilateral facet hypertrophy. Mild canal stenosis. Moderate bilateral foraminal stenosis. IMPRESSION: 1. Increased, moderate subacute wedging of T12. 2. Multilevel degenerative disc and facet disease, as well as ligamentum flavum hypertrophy and epidural lipomatosis. 3. Mild multilevel canal stenosis. 4. Multilevel foraminal stenoses, worst at L3-L4, L4-L5, and L5-S1, where there are moderate foraminal stenoses. Dictated by: Yung Marsh M.D. on 01/14/2023 at 10:51 Approved by: Yung Marsh M.D. on 01/14/2023 at 10:56
== END ==
PROVIDERS: Family Provider Family Medicine; PCP Family Medicine; Referring Provider Family Medicine; Visit Provider Family Medicine
DX: S22.020A Wedge compression fracture of second thoracic vertebra, initial encounter for closed fracture (principal); M48.061 Spinal stenosis, lumbar region without neurogenic claudication; M51.36 Other intervertebral disc degeneration, lumbar region; M47.816 Spondylosis without myelopathy or radiculopathy, lumbar region; M48.07 Spinal stenosis, lumbosacral region; M47.817 Spondylosis without myelopathy or radiculopathy, lumbosacral region; M51.37 Other intervertebral disc degeneration, lumbosacral region; M62.830 Muscle spasm of back; R39.9 Unspecified symptoms and signs involving the genitourinary system; Z96.0 Presence of urogenital implants
CPT/HCPCS: 72148; 74018

== ENCOUNTER → 2023-02-03 13:58 | Outpatient (CLI) | payer MEDICARE, OTHER, SELFPAY ==
[2022-08-08 21:45] VITALS: BMI 42.2
[2023-02-11 21:40] LABS: Ca oxalate monohydr 100 % (.); Size <1 mm (.)
== END ==
PROVIDERS: Family Provider Family Medicine; PCP Family Medicine; Visit Provider Urology
DX: N20.2 Calculus of kidney with calculus of ureter (principal); R31.29 Other microscopic hematuria; R82.81 Pyuria; R39.9 Unspecified symptoms and signs involving the genitourinary system; Z96.0 Presence of urogenital implants; Z96.89 Presence of other specified functional implants
CPT/HCPCS: 81002; 82365; 87077; 87086; 87186; 99213

== ENCOUNTER → 2023-02-11 13:00 | Outpatient (CLI) | payer MEDICARE, OTHER, SELFPAY ==
[2022-08-08 21:45] VITALS: BMI 42.2
--- NOTE | 2023-02-11 13:30 | DI.CT.S_ITS ---
PROCEDURE: CT ABDOMEN WO CON INDICATIONS: Follow-up kidney stone TECHNIQUE: After the administration of oral contrast, 5 mm thick sections acquired from the diaphragms to the iliac crests. 5 mm coronal and sagittal reformats were then performed. For radiation dose reduction, the following was used: automated exposure control, adjustment of mA and/or kV according to patient size. COMPARISON: [facility], CT, CT ABDOMEN PELVIS WO [facility], 11/03/2022, 12:02. FINDINGS: Image quality: Excellent. Lung bases: Lung bases are clear. Heart size is normal. Liver: No solid mass. Gallbladder and biliary tree: No gallstones or biliary dilation. Spleen: Normal size. Pancreas: No ductal dilation. Adrenal glands: No adrenal nodules. Kidneys: Small burden of right-sided nonobstructing nephrolithiasis, largest measuring 1.3 centimeters (426 Hounsfield unit). Nephroureteral stent present within the renal pelvis. Fluid attenuating right renal cyst. Peritoneum and bowel: Bowel loops demonstrate normal wall thickness and caliber. No free fluid or air. Nodes and vessels: No retroperitoneal or mesenteric adenopathy by size criteria. Aorta and inferior vena cava are normal in size. Bones: No suspicious bony lesions. Stable compression deformity T12 and L1. Miscellaneous: No ventral hernias. IMPRESSION: Stable small burden of nonobstructing right-sided nephrolithiasis. No hydronephrosis, with a nephroureteral stent in place. Dictated by: Florin Brooks M.D. on 02/11/2023 at 16:05 Approved by: Florin Brooks M.D. on 02/11/2023 at 16:08
== END ==
PROVIDERS: Family Provider Family Medicine; PCP Family Medicine; Referring Provider Urology; Visit Provider Urology
DX: N20.0 Calculus of kidney (principal); Z96.0 Presence of urogenital implants
CPT/HCPCS: 74150

== ENCOUNTER → 2023-03-25 11:25 | Outpatient (CLI) | payer MEDICARE, OTHER, SELFPAY ==
[2022-08-08 21:45] VITALS: BMI 42.2
--- NOTE | 2023-03-25 | DI.RAD.S_ITS ---
PROCEDURE: XR THORACIC SPINE 2V INDICATIONS: Wedge compression fracture of T11-T12 TECHNIQUE: 3 views of the thoracic spine were acquired. COMPARISON: [facility], CT, CT ABDOMEN WO CON, 02/11/2023, 13:09. FINDINGS: Bones: Stable moderate anterior wedge compression deformity of the T12 vertebral body. Diffusely decreased osseous mineralization. There is multilevel intervertebral disc height loss with degenerative endplate changes and marginal spurring. No suspicious bony lesions. 12 pairs of ribs are noted, and appear intact where visualized. Soft tissues: No paravertebral stripe thickening. IMPRESSION: Stable moderate anterior wedge compression deformity of the T12 vertebral body. Multilevel degenerative changes of the thoracic spine with decreased osseous mineralization.. Dictated by: Jasper Pitts M.D. on 03/25/2023 at 12:11 Approved by: Jasper Pitts M.D. on 03/25/2023 at 12:13
--- NOTE | 2023-03-25 11:33 | DI.RAD.S_ITS ---
PROCEDURE: XR KUB INDICATIONS: Follow-up kidney stone TECHNIQUE: One view of the abdomen acquired. COMPARISON: [facility], CR, XR KUB, 01/13/2023, 15:52. [facility], CR, XR KUB, 12/29/2022, 12:58. FINDINGS: Surgical changes and devices: Bilateral hip arthroplasties. Partially visualized penile prosthesis. Right ureteral stent. Bowel: Bowel gas pattern is normal. Soft tissues: No suspicious abdominal calcifications. Visualized solid organ contours appear normal in size. Bones: No suspicious bony lesions. Degenerative changes of the spine. IMPRESSION: Stable appearance of right ureteral stent. No definite renal stones are identified. Dictated by: Jasper Pitts M.D. on 03/25/2023 at 12:13 Approved by: Jasper Pitts M.D. on 03/25/2023 at 12:14
== END ==
PROVIDERS: Family Provider Family Medicine; PCP Family Medicine; Referring Provider Neurological Surgery; Visit Provider Urology
DX: M47.814 Spondylosis without myelopathy or radiculopathy, thoracic region (principal); N20.0 Calculus of kidney; Z87.442 Personal history of urinary calculi; S22.080A Wedge compression fracture of T11-T12 vertebra, initial encounter for closed fracture; Z96.0 Presence of urogenital implants
CPT/HCPCS: 72070; 74018

== ENCOUNTER → 2023-05-15 14:13 | Outpatient (CLI) | payer MEDICARE, OTHER, SELFPAY ==
[2022-08-08 21:45] VITALS: BMI 42.2
[2023-05-15 14:45] LABS: Appearance Urine UA SL CLOUDY; Bilirubin Urine UA NEGATIVE (NEGATIVE); Color Urine UA YELLOW; Glucose Urine UA NEGATIVE (Negative); Ketones Urine UA NEGATIVE (NEGATIVE); Leukocyte Esterase Urine UA 1+ (NEGATIVE); Nitrite Urine UA NEGATIVE (Negative); Occult Blood Urine UA 3+ (Negative); Protein Urine UA 3+ (Negative); Specific Gravity Urine UA >=1.030 (1.000-1.035); pH Urine UA 5.5 (4.5-8.0)
[2023-05-15 15:00] LABS: Bacteria Urine Occasional (0-1); Mucus Urine 1+ (Negative); RBC Urine >100/HPF (0-5/HPF); Squamous Epithelial Cell Urine 0-1 /HPF (0-5/HPF); Urine Volume 10mL (spun); WBC Urine 10-30/HPF (0-5/HPF)
[2023-05-15 15:01] LABS: Culture Indicated Urine Specimen Cultured
== END ==
PROVIDERS: Family Provider Family Medicine; PCP Family Medicine; Visit Provider Urology
DX: R39.9 Unspecified symptoms and signs involving the genitourinary system (principal)
CPT/HCPCS: 81001; 87086; 99214

== ENCOUNTER 2023-05-26 07:59 | Day surgery (SDC) | payer MEDICARE, OTHER, SELFPAY ==
[2022-08-08 21:45] VITALS: BMI 42.2
[2023-05-26] MEDS: LACTATED RINGERS 1,000 ML 21 ML IV (08:40)
--- NOTE | 2023-05-26 08:42 | PM.PREOP ---
Pre-operative Note COVID-19 COVID-19 status: Not tested Interval Note History & Physical reviewed/Exam performed by Physician: Yes Changes to H&P: No
[2023-05-26 08:44] VITALS: BMI 38.7
[2023-05-26 09:06] VITALS: BMI 38.7
[2023-05-26] MEDS: CIPROFLOXACIN 400 MG/200 ML PIGGYBACK 200 MG IV (09:10)
--- NOTE | 2023-05-26 09:22 | SUR.OPER ---
Lithotomy on padded ESWL bed, head on pillow, arms secured at patients side and padded. Legs secured in padded stirrups.
--- NOTE | 2023-05-26 09:55 | P.OP_ITS ---
Procedure & Clinicians Procedure: Right extracorporeal shockwave lithotripsy Same procedure as scheduled: Yes Indications: Is a very pleasant 78-year-old gentleman who presented with right renal calculus. He had a stent placed in his stone was treated and he is passed a significant portion of the stone but has residual. This does appear to be quite ?fluffy?. And patient wishes to proceed with repeat extracorporeal shockwave lithotripsy to see if he can not pass more the stone. Surgeon: Rakan Christensen Click Yes if Unassisted: Yes Anesthesia Type: General Operative Notes Findings: Findings: The stone appears to be a cm in diameter in the mid kidney. Does appear to be quite ?fluffy?. At 2000 shocks received at level 8 the stone did appear change but not dispersed. We will have to see how things proceed. It could be that despite its ?fluffy appearance? that it is a harder stone. The stent was in good position and appeared to be without encrustation and there were no other notable findings. Closure Type: not applicable Specimen(s): none sent Prosthetic devices, grafts, tissues, transplants, or devices: None placed at this procedure Estimated Blood Loss (mL): 0 Procedure in detail: Procedure in detail: After informed consent was obtained, the patient was identified brought to the operating room placed in a supine position on the Lithotripter where anesthesia was induced and maintained. Ensuring an adequate level of anesthesia, after time-out and administration of antibiotics the stone was targeted via the imaging system and received shock waves at level 8 for a total of 2000 shocks with periodic reimaging and ureteral localization to ensure maximal energy delivery to the stone. Having reached the maximum number of ac ceptable shocks the shockwave head was rotated out and fluoroscopy performed; this showed the stone to have change but not dispersed. At this point the patient was awakened having tolerated the procedure well to be discharged to the postanesthesia care unit for recovery from there he will be discharged to home there were no complications. Patient will follow up my office in 10-14 days with a KUB we will have him strain his urine and save any fragments and bring these to follow-up. Complications: none Post-operative Condition: stable Disposition: PACU Plan for aftercare: Patient to strain his urine save any fragments follow-up my office in appro ximately 10-14 days with a KUB.
[2023-05-26 09:58] VITALS: BP 129/90; PULSE 80; RESP 11; TEMP 36.4; O2SAT 96
[2023-05-26 10:06] VITALS: BP 130/101; PULSE 70; RESP 14; O2SAT 98
[2023-05-26] MEDS: ACETAMINOPHEN 325 MG TABLET 650 MG PO (10:10)
[2023-05-26 10:13] VITALS: PULSE 68; RESP 16; TEMP 36.4; O2SAT 97
[2023-05-26 10:18] VITALS: BP 130/64; PULSE 64; RESP 16; O2SAT 97
== END 2023-05-26 10:45 | disposition home or self-care (01) ==
PROVIDERS: Family Provider Family Medicine; PCP Family Medicine; Referring Provider Urology; Visit Provider Urology
PROC: (CPT 50590; principal; 2023-05-26 09:15)
DX: N20.0 Calculus of kidney (principal)
CPT/HCPCS: 50590; 82365; 82962; J0744; J2704

== ENCOUNTER → 2023-05-26 13:48 | Outpatient (CLI) | payer MEDICARE, OTHER, SELFPAY ==
[2022-08-08 21:45] VITALS: BMI 42.2
[2023-06-12 01:38] LABS: Ca oxalate monohydr 10 % (.); Hydroxyapatite 90 % (.); Size 2x4 mm (.)
== END ==
PROVIDERS: Family Provider Family Medicine; PCP Family Medicine; Visit Provider Urology
DX: N20.2 Calculus of kidney with calculus of ureter (principal); Z87.442 Personal history of urinary calculi
CPT/HCPCS: 82365

== ENCOUNTER → 2023-06-09 12:40 | Outpatient (CLI) | payer MEDICARE, OTHER, SELFPAY ==
[2022-08-08 21:45] VITALS: BMI 42.2
--- NOTE | 2023-06-09 12:42 | DI.RAD.S_ITS ---
PROCEDURE: XR KUB INDICATIONS: Kidney stones TECHNIQUE: One view of the abdomen acquired. COMPARISON: [facility], , XR KUB, 03/25/2023, 11:41. FINDINGS: Surgical changes and devices: Right-sided double-J ureteral stent in good position. Bilateral hip prosthesis6 Bowel: Bowel gas pattern is normal. Soft tissues: No suspicious abdominal calcifications. Visualized solid organ contours appear normal in size. Bones: No suspicious bony lesions. IMPRESSION: Right double-J ureteral stent in good position Approved by: Rory Parker M.D. on 06/09/2023 at 19:33
== END ==
PROVIDERS: Family Provider Family Medicine; PCP Family Medicine; Referring Provider Urology; Visit Provider Urology
DX: Z96.0 Presence of urogenital implants; R39.9 Unspecified symptoms and signs involving the genitourinary system; N20.2 Calculus of kidney with calculus of ureter
CPT/HCPCS: 74018; 81002; 82365; 87077; 87086; 87186

== ENCOUNTER → 2023-06-09 14:52 | Outpatient (CLI) | payer MEDICARE, OTHER, SELFPAY ==
[2022-08-08 21:45] VITALS: BMI 42.2
[2023-06-16 18:08] LABS: Ca oxalate dihydrate 20 % (.); Ca oxalate monohydr 80 % (.); Size <1 mm (.)
== END ==
PROVIDERS: Family Provider Family Medicine; PCP Family Medicine; Visit Provider Urology
DX: N20.0 Calculus of kidney (principal); R39.9 Unspecified symptoms and signs involving the genitourinary system
CPT/HCPCS: 82365; 87086

== ENCOUNTER 2023-06-24 12:35 | Outpatient (CLI) | payer MEDICARE, OTHER, SELFPAY ==
[2022-08-08 21:45] VITALS: BMI 42.2
[2023-06-24] VITALS (7 sets, daily range): BP systolic 117–173; BP diastolic 55–86; PULSE 44–79; RESP 18–20; TEMP 35.3; O2SAT 95–97
--- NOTE | 2023-06-24 13:30 | DI.RAD.S_ITS ---
PROCEDURE: PAIN C/T FACET INJ/BLK 1ST LIDIA INDICATIONS: radiculopathy COMPARISON: None. FINDINGS: Fluoroscopic spot filming was performed to verify placement of spinal needles at the bilaterally from T10 through T12 level(s), as labeled on the films. Appropriate location(s) of the needle tip(s) was confirmed by injection of iodinated contrast. IMPRESSION: Fluoroscopically guided facet injection at T10-T12. Dictated by: Alona Richards M.D. on 06/24/2023 at 15:18 Approved by: Alona Richards M.D. on 06/24/2023 at 15:18
[2023-06-24] MEDS: iopamidoL 15 ML VIAL 3 ML INJ (13:46)
[2023-06-24] MEDS: BUPIVACAINE 0.5% (PF) 10 ML VIAL INJ (13:46)
--- NOTE | 2023-06-24 16:19 | P.PCN_ITS ---
Date/Time/Diagnoses Date of procedure: 06/24/23 Time of procedure: 13:30 Procedure Notes Physician: José Miguel Ferraro Total Fluoroscopy time (seconds): 26 Total sedation minutes: 0 Procedure in detail & Post-procedure care: Bilateral T10, 11, 12 Medial Branch Blocks Indications: Rodolfo is presenting for treatment of thoracic spondylosis with thoracic back pain. Preoperative diagnosis: Thoracic spondylosis Postoperative diagnosis: Same Pre-procedure History: Patient demonstrates today moderate to severe non- radicular back pain without neurologic deficit aggravated by hyperextension yes Patient today has tenderness over the suspected joint(s) yes History of post-traumatic injury? no Hypertrophic arthropathy yes Back pain associated with suspected motion segment instability, hypermobility or pseudoarthrosis no Focused Examination: Ax3 Mood and affect are normal Vital Signs: VSS Consent: Following review of allergies and potential side effects/complications, including, but not necessarily limited to, infection, allergic reaction, local tissue breakdown, stroke, temporary or permanent nerve injury, paralysis, and possible , the patient indicated that they understood and agreed to proceed.? An informed consent document was signed by the patient, witnessed by a nurse and placed in the patient's chart.? Additionally, other treatment options including medications and physical therapy were reviewed with the patient. All questions were answered. Site was then marked. Anesthesia: Local Position: Prone Monitoring: NIBP, Pulse oximetry, 3 lead EKG Needle used: 22 ga, 3.5 inch spinal needle Contrast: Isovue 300M Injectate: 0.5% bupivacaine 1 mL per site Procedure: The patient was brought into the procedure room and positioned into the prone position. Skin was prepped with a Chloraprep solution, allowed to air dry, and then draped in sterile fashion.? The right T11-12 and T12-L1 facet joints were visually identified with fluoroscopy. Lidocaine 1% was used to anesthetize the skin over each target destination with a 25ga needle. A 22 ga, 3.5 inch spinal needle was advanced to the location of the medial branch at right T11, T12 and L1 using intermittent fluoroscopy in the AP view. Isovue 300M contrast 0.2ml was injected at each level outlining the medial borders for each level in the AP and lateral views. There was no evidence of vascular or intrathecal uptake. The above injectate was slowly injected at each target destination. The left T11-12 and T12-L1 facet joints were visually identified with fluoroscopy. Lidocaine 1% was used to anesthetize the skin over each target destination with a 25ga needle. A 22 ga, 3.5 inch spinal needle was advanced to the location of the medial branch at left T11, T12 and L1 using intermittent fluoroscopy in the AP view. Isovue 300M contrast 0.2ml was injected at each level outlining the medial borders for each level in the AP and lateral views. There was no evidence of vascular or intrathecal uptake. The above injectate was slowly injected at each target destination. At the end of the procedure the needles were withdrawn and Band-Aids were applied for a dressing. At the end of the procedure the needles were withdrawn and Band-Aids were applied for a dressing. Post Procedure: Patient was taken to the recovery and monitored. The patient was provided a Pain Log to continue to record the patient's response to the target- specific procedure prior to the patient's follow-up visit with the referring physician. Patient was stable upon discharge. Detailed post procedure instructions were provided. Patient was asked to call in the event of worsening pain, fever, weakness, numbness or bladder or bowel incontinence. Based on the medial branches blocked today, if the patient meets insurance criteria for radiofrequency, the treatment should result in the denervation of the bilateral T11-12 and T12-L1 facet joint nerves. We would expect to denervate a total of 4 facets during the radiofrequency ablation.
== END 2023-06-24 14:26 | disposition home or self-care (01) ==
PROVIDERS: Family Provider Family Medicine; PCP Family Medicine; Referring Provider Anesthesiology; Visit Provider Anesthesiology
DX: M47.814 Spondylosis without myelopathy or radiculopathy, thoracic region (principal)
CPT/HCPCS: 64490; 64491

== ENCOUNTER → 2023-06-26 13:33 | Outpatient (CLI) | payer MEDICARE, OTHER, SELFPAY ==
[2022-08-08 21:45] VITALS: BMI 42.2
[2023-07-10 16:11] LABS: Ca oxalate dihydrate 5 % (.); Ca oxalate monohydr 95 % (.); Size <1 mm (.)
== END ==
PROVIDERS: Family Provider Family Medicine; PCP Family Medicine; Visit Provider Urology
DX: N20.2 Calculus of kidney with calculus of ureter (principal); R39.9 Unspecified symptoms and signs involving the genitourinary system; Z87.442 Personal history of urinary calculi; Z96.0 Presence of urogenital implants; Z96.89 Presence of other specified functional implants
CPT/HCPCS: 74018; 81002; 82365; 87086; 99213

== ENCOUNTER → 2023-07-09 12:04 | Outpatient (CLI) | payer MEDICARE, OTHER, SELFPAY ==
[2022-08-08 21:45] VITALS: BMI 42.2
--- NOTE | 2023-07-09 12:06 | DI.RAD.S_ITS ---
PROCEDURE: XR KUB INDICATIONS: Follow-up right-sided stone TECHNIQUE: One view of the abdomen acquired. COMPARISON: [facility], CR, XR KUB, 06/26/2023, 11:47. [facility], CR, XR KUB, 06/09/2023, 12:46. FINDINGS: Surgical changes and devices: Right ureteral stent in place. Bilateral hip arthroplasties are partially visualized. Bowel: Bowel gas pattern is normal. Soft tissues: Possible right renal stone measuring 10 x 12 millimeters. Tiny punctate left renal stone is redemonstrated. Visualized solid organ contours appear normal in size. Bones: No suspicious bony lesions. IMPRESSION: Right ureteral stent in place. Possible right renal stone measuring 10 x 12 millimeters. Punctate left renal stone is redemonstrated. Dictated by: Jasper Pitts M.D. on 07/09/2023 at 16:26 Approved by: Jasper Pitts M.D. on 07/09/2023 at 16:27
== END ==
PROVIDERS: Family Provider Family Medicine; PCP Family Medicine; Referring Provider Urology; Visit Provider Urology
DX: N20.0 Calculus of kidney (principal); R39.9 Unspecified symptoms and signs involving the genitourinary system; Z87.442 Personal history of urinary calculi; Z96.89 Presence of other specified functional implants; Z96.0 Presence of urogenital implants
CPT/HCPCS: 74018; 81002

== ENCOUNTER → 2023-07-28 13:01 | Outpatient (CLI) | payer MEDICARE, OTHER, SELFPAY ==
[2022-08-08 21:45] VITALS: BMI 42.2
[2023-07-28 13:49] LABS: Hematocrit 43.2 % (41-53); Hemoglobin 14.8 g/dL (13.5-17.5); Mean Corpuscular HGB Conc 34.2 % (30-36); Mean Corpuscular Hemoglobin 33.6 PG (26-34); Mean Corpuscular Volume 98.1 fL (80-100); Platelet Count 251 X10^3/uL (150-400); Red Cell Distribution Width 13.8 % (11.6-14.8); White Blood Cell Count 13.9 X10^3/uL (4.5-11.0)
[2023-07-28 14:17] LABS: BUN Creatinine Ratio 20.5 (6-22); Blood Urea Nitrogen 18 mg/dL (9-20); Calcium 9.4 mg/dL (8.4-10.2); Carbon Dioxide 26 mmol/L (22-32); Chloride 106 mmol/L (98-107); Cholesterol 137 mg/dL (140-199); Estimated Glomerular Filt Rate > 60 mL/min (>60); Glucose 118 mg/dL (80-110); HDL Cholesterol 37 mg/dL (40-60); HEMOLYSIS 15 (0-50); Potassium 4.6 mmol/L (3.4-5.1); Sodium 141 mmol/L (137-145); Triglycerides 440 mg/dL (35-150)
[2023-07-28 14:23] LABS: NT-proBNP (BNP-Adult 18+) 478 pg/mL (<450)
== END ==
PROVIDERS: Family Provider Family Medicine; PCP Family Medicine; Referring Provider Anesthesiology; Visit Provider Anesthesiology
DX: R06.09 Other forms of dyspnea (principal); I10 Essential (primary) hypertension
CPT/HCPCS: 36415; 80048; 80061; 83880; 85027

== ENCOUNTER → 2023-07-30 12:05 | Outpatient (CLI) | payer MEDICARE, OTHER, SELFPAY ==
[2022-08-08 21:45] VITALS: BMI 42.2
--- NOTE | 2023-07-30 12:12 | DI.RAD.S_ITS ---
PROCEDURE: XR KUB INDICATIONS: Kidney stones TECHNIQUE: One view of the abdomen acquired. COMPARISON: [facility], CT, CT ABDOMEN WO CON, 02/11/2023, 13:09. [facility], CR, XR KUB, 07/09/2023, 12:07. FINDINGS: Surgical changes and devices: Right double-J ureteral stent is redemonstrated and appears unchanged. Bowel: Bowel gas pattern is normal. Soft tissues: Subtle radiopacities within the right mid abdomen may represent renal calculi. No other suspicious soft tissue calcifications. Bones: No suspicious bony lesions. IMPRESSION: Probable right nephrolithiasis. No interval change. Dictated by: Alona Richards M.D. on 07/30/2023 at 15:25 Approved by: Alona Richards M.D. on 07/30/2023 at 15:26
== END ==
LOC: RAD 12:12
PROVIDERS: Family Provider Family Medicine; PCP Family Medicine; Referring Provider Urology; Visit Provider Urology
DX: Z09 Encounter for follow-up examination after completed treatment for conditions other than malignant neoplasm (principal); Z87.442 Personal history of urinary calculi; R39.9 Unspecified symptoms and signs involving the genitourinary system; Z96.0 Presence of urogenital implants
CPT/HCPCS: 74018; 82365

== ENCOUNTER → 2023-07-30 14:11 | Outpatient (CLI) | payer MEDICARE, OTHER, SELFPAY ==
[2022-08-08 21:45] VITALS: BMI 42.2
[2023-08-06 16:35] LABS: Ca oxalate dihydrate 10 % (.); Ca oxalate monohydr 90 % (.)
== END ==
PROVIDERS: Family Provider Family Medicine; PCP Family Medicine; Visit Provider Urology
DX: R39.9 Unspecified symptoms and signs involving the genitourinary system (principal)
CPT/HCPCS: 82365

== ENCOUNTER → 2023-08-18 11:58 | Outpatient (CLI) | payer MEDICARE, OTHER, SELFPAY ==
[2023-07-30 14:21] VITALS: BMI 42.2
--- NOTE | 2023-08-18 12:00 | DI.RAD.S_ITS ---
PROCEDURE: XR KUB INDICATIONS: Follow-up right calculi TECHNIQUE: One view of the abdomen acquired. COMPARISON: [facility], CR, XR KUB, 06/09/2023, 12:46. CR, XR KUB, 03/25/2023, 11:41. [facility], CR, XR KUB, 07/09/2023, 12:07. [facility], CR, XR KUB, 06/26/2023, 11:47. [facility], CR, XR KUB, 07/30/2023, 12:18. FINDINGS: Surgical changes and devices: There is a right ureteral stent in stable position since the last exam. Bowel: Bowel gas pattern is normal. Soft tissues: Right renal calculi are present, partially obscured by overlying stool within the proximal transverse colon. Visualized solid organ contours appear normal in size. Bones: No suspicious bony lesions. Bilateral hip arthroplasties. IMPRESSION: Right renal stones are present, possibly obscured by the stool content within the proximal transverse colon. Dictated by: Mirella Greenberg M.D. on 08/18/2023 at 13:40 Approved by: Mirella Greenberg M.D. on 08/18/2023 at 13:43
== END ==
PROVIDERS: Family Provider Family Medicine; PCP Family Medicine; Referring Provider Urology; Visit Provider Urology
DX: N20.0 Calculus of kidney (principal); Z87.442 Personal history of urinary calculi; R39.9 Unspecified symptoms and signs involving the genitourinary system
CPT/HCPCS: 74018; 82365; 87086

== ENCOUNTER → 2023-08-18 14:03 | Outpatient (CLI) | payer MEDICARE, OTHER, SELFPAY ==
[2023-07-30 14:21] VITALS: BMI 42.2
== END ==
PROVIDERS: Family Provider Family Medicine; PCP Family Medicine; Visit Provider Urology
DX: R39.9 Unspecified symptoms and signs involving the genitourinary system (principal)
CPT/HCPCS: 82365; 87086

== ENCOUNTER → 2023-09-08 12:00 | Outpatient (CLI) | payer MEDICARE, OTHER, SELFPAY ==
[2023-07-30 14:21] VITALS: BMI 42.2
--- NOTE | 2023-09-08 12:01 | DI.RAD.S_ITS ---
PROCEDURE: XR KUB INDICATIONS: Kidney stones TECHNIQUE: One view of the abdomen acquired. COMPARISON: [facility], CT, CT ABDOMEN WO CON, 02/11/2023, 13:09. [facility], CR, XR KUB, 08/18/2023, 12:11. [facility], CR, XR KUB, 07/30/2023, 12:18. FINDINGS: Surgical changes and devices: Right double-J ureteral stent. Bilateral hip arthroplasties. Bowel: Bowel gas pattern is normal. Soft tissues: Right kidney stone measuring 1.2 cm is suspected. No suspicious abdominal calcifications. Visualized solid organ contours appear normal in size. Bones: No suspicious bony lesions. IMPRESSION: Right double-J ureteral stent. Nonobstructing right kidney stone measuring 1.2 cm is suspected. -CT KUB could be considered for further evaluation. Dictated by: Ander Fraga M.D. on 09/08/2023 at 15:12 Approved by: Ander Fraga M.D. on 09/08/2023 at 15:16
== END ==
PROVIDERS: Family Provider Family Medicine; PCP Family Medicine; Referring Provider Urology; Visit Provider Urology
DX: Z87.442 Personal history of urinary calculi (principal); Z96.0 Presence of urogenital implants
CPT/HCPCS: 74018

== ENCOUNTER → 2023-09-08 14:32 | Outpatient (CLI) | payer MEDICARE, OTHER, SELFPAY ==
[2023-07-30 14:21] VITALS: BMI 42.2
== END ==
PROVIDERS: Family Provider Family Medicine; PCP Family Medicine; Visit Provider Urology
DX: R39.9 Unspecified symptoms and signs involving the genitourinary system (principal); Z87.442 Personal history of urinary calculi; Z96.0 Presence of urogenital implants
CPT/HCPCS: 74018; 82365; 87086

== ENCOUNTER → 2023-09-16 13:10 | Outpatient (CLI) | payer MEDICARE, OTHER, SELFPAY ==
[2023-09-08 14:41] VITALS: BMI 42.2
--- NOTE | 2023-09-16 13:12 | DI.ECHO.S_ITS ---
[place] [facility] : : [id number] : [place] : : [id number] : : Phone: [phone] Echocardiogram Report + + :Name: BARBARA LAURENT Study Date: 09/16/2023 Height: 75 in : :[facility] ReadingLocation: Weight: 295 lb : : Gender: Male BSA: 2.6 m2 : :: 1945 Age: 78 yrs BP: 154/71 mmHg: :Reason For Study: PVC : :Ordering Physician: KONSTANTIN, : :YENIFER Performed By: Rosa Jackson : :Referring: YENIFER HOFFMAN : + + Interpretation Summary 1) Mildly dilated left ventricle with normal wall motion, and normal systolic function (EF 55-60%). 2) Normal right ventricular size and function. 3) No significant valvular abnormalities. 4) The right ventricular systolic pressure is estimated to be at least 59 mmHg based on an estimated right atrial pressure of 3 mm Hg. 5) Compared to the Echo done 07/23/2022, systolic pulmonary artery pressure has increased from 44mmHg to 59mmHg on this study. Procedure: A two-dimensional transthoracic echocardiogram with color flow and Doppler was performed. The study quality was technically adequate. Comparison is made with the echocardiogram of 07/23/2022. The patient had frequent PVCs during the exam. The heart rate ranged between 55-63 bpm during the study. Left Ventricle: The left ventricle is normal in size and wall thickness. The ejection fraction is estimated to be 55-60%. Left ventricular systolic function appears normal without focal wall motion abnormalities. Diastolic parameters suggest a relaxation abnormality of the left ventricle, consistent with probable normal filling pressures. Right Ventricle: The right ventricle is normal in size and function. Atria: The left atrium is moderately dilated. The right atrium is moderately dilated. There is no Doppler evidence for an interatrial shunt. Mitral Valve: The mitral valve is normal in structure and function. There is mild mitral annular calcification. There is no mitral regurgitation noted. Aortic Valve: The aortic valve is grossly normal. The aortic valve opens well. There is no aortic valve stenosis. No aortic regurgitation is present. Tricuspid Valve: The tricuspid valve is normal in structure and function. There is mild tricuspid regurgitation. The right ventricular systolic pressure is estimated to be at least 59 mmHg based on an estimated right atrial pressure of 3 mm Hg. Pulmonic Valve: The pulmonic valve leaflets are thin and pliable; valve motion is normal. There is trace pulmonic regurgitation. Great Vessels: The aortic root is normal size. The dimensions of the ascending aorta are normal. The IVC is of normal diameter and collapses greater than 50% with a sniff. This suggests a low right atrial pressure of 3 mm Hg. Pericardium/ Pleura There is no pericardial effusion. There is no pleural effusion. MMode/2D Measurements & Calculations LVIDd: 5.9 cm LVOT diam: 2.2 cm LVIDs: 4.1 cm Ao root diam: 3.1 cm FS: 30.9 % asc Aorta Diam: 3.6 cm IVSd: 0.93 cm Ao Arch Diam (Prox Trans): 2.5 cm LVPWd: 1.0 cm LV emmanuel. diameter/BSA (cm/m^2): 2.3 LV sys. diameter/BSA (cm/m^2): 1.6 LA A2 area: 29.2 cm2 RA long axis: 6.5 cm LA A4 area: 30.0 cm2 RA area: 29.5 cm2 LA length (vol): 7.3 cm RA vol: 113.2 ml LA vol: 102.3 ml RA : 43.7 ml/m2 LA vol index: 39.5 ml/m2 IVC diam: 1.7 cm RVD2 (mid): 3.8 cm TAPSE: 3.2 cm Doppler Measurements & Calculations Ao V2 max: 188.0 cm/sec LVOT Max Kashif: 92.4 cm/sec Ao V2 mean: 116.9 cm/sec LV V1 max P.5 mmHg Ao max P.4 mmHg LV V1 VTI: 21.5 cm Ao mean P.9 mmHg ANOPO(I,D): 2.2 cm2 Ao V2 VTI: 37.1 cm ANOOP(V,D): 1.9 cm2 sev ratio: 0.58 ANOOP indexed to BSA (cm^2/m^2): 0.87 MV E max kashif: 73.0 cm/sec TR max kashif: 374.7 cm/sec MV A max kashif: 104.9 cm/sec TR max P.2 mmHg MV E/A: 0.70 PA V2 max: 113.0 cm/sec Med Peak E' Kashif: 6.5 cm/sec PA V2 mean: 80.8 cm/sec E/E' med: 11.2 PA mean P.9 mmHg Lat Peak E' Kashif: 11.2 cm/sec PA pr(Accel): 41.3 mmHg E/E' lat: 6.5 E/e' average: 8.9 MV dec time: 0.38 sec SV(LVOT): 83.2 ml Reading Physician:05:40 PM
== END ==
PROVIDERS: Family Provider Family Medicine; PCP Family Medicine; Referring Provider Internal Medicine Cardiovascular Disease; Visit Provider Internal Medicine Cardiovascular Disease
DX: I49.3 Ventricular premature depolarization (principal); I08.1 Rheumatic disorders of both mitral and tricuspid valves
CPT/HCPCS: 93306

== ENCOUNTER → 2023-09-29 13:21 | Outpatient (CLI) | payer MEDICARE, OTHER, SELFPAY ==
[2023-09-08 14:41] VITALS: BMI 42.2
--- NOTE | 2023-09-29 13:23 | DI.RAD.S_ITS ---
PROCEDURE: XR KUB INDICATIONS: Follow-up right renal calculus after lithotripsy TECHNIQUE: One view of the abdomen acquired. COMPARISON: [facility], CR, XR KUB, 09/08/2023, 12:19. FINDINGS: Surgical changes and devices: Right-sided ureteral stent is noted. Patient is status post bilateral total hip arthroplasty. Bowel: Bowel gas pattern is normal. Soft tissues: Patient's known 1.2 cm calcification projecting in right renal fossa is again seen and is not significantly changed just medial to the proximal right ureteral stent. There is also a tiny calcifications seen projecting in lower pole left kidney measures 2-3 mm in size. Visualized solid organ contours appear normal in size. Bones: No suspicious bony lesions. IMPRESSION: Right-sided ureteral stent in place. Bilateral renal calcifications as above. No gross free air. Dictated by: Sameer Khan M.D. on 09/29/2023 at 15:06 Approved by: Sameer Khan M.D. on 09/29/2023 at 15:07
== END ==
PROVIDERS: Family Provider Family Medicine; PCP Family Medicine; Referring Provider Urology; Visit Provider Urology
DX: N20.0 Calculus of kidney (principal); R39.9 Unspecified symptoms and signs involving the genitourinary system; Z87.442 Personal history of urinary calculi; Z96.0 Presence of urogenital implants
CPT/HCPCS: 74018; 82365; 87086

== ENCOUNTER → 2023-09-29 15:37 | Outpatient (CLI) | payer MEDICARE, OTHER, SELFPAY ==
[2023-09-08 14:41] VITALS: BMI 42.2
== END ==
PROVIDERS: Family Provider Family Medicine; PCP Family Medicine; Visit Provider Urology
DX: R39.9 Unspecified symptoms and signs involving the genitourinary system (principal); Z87.442 Personal history of urinary calculi
CPT/HCPCS: 82365; 87086

== ENCOUNTER → 2023-10-27 13:43 | Outpatient (CLI) | payer MEDICARE, OTHER, SELFPAY ==
[2023-09-08 14:41] VITALS: BMI 42.2
--- NOTE | 2023-10-27 13:44 | DI.RAD.S_ITS ---
PROCEDURE: XR KUB INDICATIONS: Right renal Calculus TECHNIQUE: One view of the abdomen acquired. COMPARISON: [facility], , XR KUB, 09/29/2023, 13:38. FINDINGS: Right nephroureteral stent placement, grossly unchanged in position. Scattered small calcification in the lower pole of the right kidney, with the larger 1 measuring 7 mm, increased in conspicuity comparison to prior exam, likely representing renal stones. Previously seen punctate renal stone in the lower pole of the left kidney is not visualized on this exam. Paucity of air in the small bowel, a nonspecific finding. Bilateral hip arthroplasty. IMPRESSION: Right nephroureteral stent in unchanged position. Multiple small right renal stones. Dictated by: Sara Jamison M.D. on 10/27/2023 at 15:59 Approved by: Sara Jamison M.D. on 10/27/2023 at 16:02
== END ==
PROVIDERS: Family Provider Family Medicine; PCP Family Medicine; Referring Provider Urology; Visit Provider Urology
DX: N20.0 Calculus of kidney (principal); R39.9 Unspecified symptoms and signs involving the genitourinary system; R31.29 Other microscopic hematuria; N40.1 Benign prostatic hyperplasia with lower urinary tract symptoms; R39.14 Feeling of incomplete bladder emptying; R33.9 Retention of urine, unspecified; R82.81 Pyuria; Z96.0 Presence of urogenital implants
CPT/HCPCS: 51798; 74018; 81002; 87086; 99214

== ENCOUNTER → 2023-10-27 15:40 | Outpatient (CLI) | payer MEDICARE, OTHER, SELFPAY ==
[2023-09-08 14:41] VITALS: BMI 42.2
== END ==
PROVIDERS: Family Provider Family Medicine; PCP Family Medicine; Visit Provider Urology
DX: R39.9 Unspecified symptoms and signs involving the genitourinary system (principal)
CPT/HCPCS: 87086

== ENCOUNTER → 2023-12-11 10:50 | Outpatient (CLI) | payer MEDICARE, OTHER, SELFPAY ==
[2023-09-08 14:41] VITALS: BMI 42.2
== END ==
PROVIDERS: Family Provider Family Medicine; PCP Family Medicine; Visit Provider Urology
DX: R39.9 Unspecified symptoms and signs involving the genitourinary system (principal)
CPT/HCPCS: 87077; 87086

== ENCOUNTER 2023-12-29 06:26 | Day surgery (SDC) | payer MEDICARE, OTHER, SELFPAY ==
[2023-09-08 14:41] VITALS: BMI 42.2
[2023-11-11 08:24] VITALS: BMI 39.8
[2023-12-09 16:15] VITALS: BMI 39.8
[2023-12-29] MEDS: LACTATED RINGERS 1,000 ML 42 ML IV (07:22)
[2023-12-29] MEDS: ACETAMINOPHEN 325 MG TABLET 975 MG PO (07:35)
[2023-12-29 07:38] VITALS: BMI 39.8
--- NOTE | 2023-12-29 07:40 | PM.PREOP ---
Pre-operative Note COVID-19 COVID-19 status: Not tested Interval Note History & Physical reviewed/Exam performed by Physician: Yes Changes to H&P: No
--- NOTE | 2023-12-29 07:51 | SUR.PREOP ---
SB with tawana. annesthesia review cardia [id number]
[2023-12-29] MEDS: CEFAZOLIN VIAL 3 GM in SODIUM CHLORIDE 0.9% 100 ML IV (08:15)
--- NOTE | 2023-12-29 08:22 | SUR.OPER ---
Lithotomy on padded OR bed, head on pillow, arms secured on padded arm boards at <90 degrees abduction. Legs secured in padded yellow fins stirrups.
--- NOTE | 2023-12-29 08:30 | P.OP_ITS ---
Procedure & Clinicians Procedure: Cystoscopy with urethral dilation and over the wire placement of catheter Same procedure as scheduled: No Indications: This 78-year-old male with known kidney stones has failed to pass some residual in the lower part of the kidney and was presenting today for ureteroscopy with possible laser lithotripsy possible stone basketing, stent removal and stent replacement. However at the at cystoscopy he was found to have a very tight urethral stricture which required dilation. Patient also has a penile prosthesis and because of these factors and what turned out to be massive encrustation on the stent it was elected to place the catheter will let this heal and come back on another day when there is less chance of posturing erosion of his prosthesis. Surgeon: Rakan Christensen Anesthesia Type: General Operative Notes Findings: Findings: Patient with penile prosthesis in place. And in the mid bulbar urethra there was a tight stricture that was likely at most 10 Burkinan in diameter. This was dilated to 20 Burkinan. There were a series of strictures there was some of them were larger but this was a very tight stricture and the prostatic fossa shows moderate approaching severe obstructive character. The stent was visualized and had fairly massive encrustation. Which would likely indicate encrustation on the renal portion also. And so factoring in the penile prosthesis the degree of manipulation that would be required the need for dilation was elected to place a catheter let the stricture heal and come back on another day. It appears that the stent will likely require lithotripsy we will reimage. It is interesting that on KUB this encrustation was not obvious. But given these findings was felt this is the safe path at this point. Closure Type: not applicable Specimen(s): none sent Prosthetic devices, grafts, tissues, transplants, or devices: Twenty Burkinan [address] 10 cc Councill tip catheter is left in place. Applied: catheter Estimated Blood Loss (mL): 5 Blood products transfused: none Procedure in detail: Procedure in detail after informed consent was obtained, the patient was identified brought to the operating room placed in a supine position on the table where anesthesia was induced and maintained. His hearing an adequate level of anesthesia the patient was transitioned to low lithotomy position where he was prepped, draped, prepared for Transurethral procedure. After prepping, draping, time-out, administration of antibiotics and ensuring an adequate level of anesthesia a 22 Burkinan cystoscope was passed through the level of the stricture. With this being observed an Amplatz ultra stiff wire was passed through the stricture and coiled within the bladder. The cook S dilators that were then employed from 14-20 Burkinan dilating the stricture. The wire was left in place and the scope passed along the wire and through the prostate into the bladder where cystoscopy was performed. With the findings in hand and with the decision making as noted above the scope was backed out in the 20 Burkinan Councill tip catheter passed over the wire into the bladder the wire was removed the balloon filled with 10 cc of sterile water and placed to gravity drainage. At this point the patient was awakened having tolerated the procedure well and transferred to the postanesthesia care unit for recovery there were no complications. Complications: none Post-operative Condition: stable Disposition: PACU Plan for aftercare: Patient will go home with his Bates catheter follow-up in my office in the next 7-10 days prior to coming to the office will obtain a CT scan abdomen and pelvis without contrast.
[2023-12-29 08:40] VITALS: BP 141/87; PULSE 73; RESP 16; TEMP 36.2; O2SAT 97
[2023-12-29 08:45] VITALS: BP 143/73; PULSE 76; RESP 16; O2SAT 98
[2023-12-29 08:50] VITALS: BP 157/74; PULSE 78; RESP 15; TEMP 36.2; O2SAT 98
[2023-12-29 08:55] VITALS: BP 143/73; PULSE 69; RESP 16; TEMP 36.2; O2SAT 98
[2023-12-29] MEDS: PHENAZOPYRIDINE 100 MG TABLET 200 MG PO (09:12)
[2023-12-29 09:30] VITALS: BP 145/78; PULSE 70; RESP 16; O2SAT 98
== END 2023-12-29 10:11 | disposition home or self-care (01) ==
PROVIDERS: Family Provider Family Medicine; PCP Family Medicine; Referring Provider Urology; Visit Provider Urology
PROC: 0TF68ZZ Fragmentation in Right Ureter, Via Natural or Artificial Opening Endoscopic (ICD-10-PCS; CPT 52353; principal; 2023-12-29 07:45)
DX: N20.0 Calculus of kidney (principal); N35.916 Unspecified urethral stricture, male, overlapping sites
CPT/HCPCS: 52281; 82962; J0330; J0690; J2405; J2704; J3010

== ENCOUNTER → 2024-01-04 14:13 | Outpatient (CLI) | payer MEDICARE, OTHER, SELFPAY ==
[2023-09-08 14:41] VITALS: BMI 42.2
--- NOTE | 2024-01-04 14:14 | DI.CT.S_ITS ---
PROCEDURE: CT KIDNEY URETER BLADDER (KUB) INDICATIONS: Calculus of right kidney Retained ureteral stent TECHNIQUE: Axial sections were acquired from the lung bases to the pubic symphysis. Coronal and sagittal reformats were performed. For radiation dose reduction, the following was used: automated exposure control, adjustment of mA and/or kV according to patient size. COMPARISON: [facility], CT, CT KIDNEY URETER BLADDER (KUB), 09/13/2022, 6:21. FINDINGS: Image quality: Diagnostic. Lower Chest: Mild bibasilar pleural thickening and mild subsegmental atelectasis similar to the prior exam. ABDOMEN / PELVIS: URINARY: Right Kidney: Right ureteral double-J stent is in place new compared to the prior exam with new mild dilatation of the calices and renal pelvis but without hydroureter and without gross CT evidence of ureteral calculus. Numerous nonobstructing lower pole renal calculi are noted the largest measuring up to 8 mm x 7 mm x 6 mm similar to the prior exam. Left Kidney: 2 mm nonobstructing left renal calculus inferior pole new compared to the prior exam. No left ureteral calculi no hydronephrosis, no hydroureter. Bladder: Bladder is not well evaluated due to extensive beam hardening artifacts from bilateral hip prostheses. The bladder does appear nondistended with a Bates catheter in place. Nonspecific wall thickening of the urinary bladder measures up to approximately 1.2 cm most likely, commonly related to artifact from partial nondistention although cystitis, infiltrate or bladder wall process, chronic urinary retention or other cause could be considered. The prostate gland and seminal vesicles are not visualized due to artifact. Penile prosthesis with right lower pelvis insufflation bulb again noted unchanged. Decreased height with anterior wedging of the T12 vertebral body related to chronic compression fracture unchanged. Moderate degenerate changes lower thoracic, lumbar spine with suspected mild to moderate central stenosis at T11-T12, T12-L1, L1-2 unchanged. Moderate calcifications of the aorta without aneurysm unchanged. Pattern of constipation. New mildly enlarged mid abdominal mesenteric lymph nodes with mild hazy increased attenuation of the mesenteric fat (axial series 2 images 40-51 the largest measuring up to 1 cm short axis commonly reactive/inflammatory, related to enteritis or other process. Neoplastic or metastatic nodes less likely given the size and appearance but could be considered. Liver: No contour-deforming solid mass. Gallbladder: No radiopaque gallstones or wall thickening. Biliary ducts: No biliary dilation. Pancreas: No ductal dilation. Spleen: Size is within normal limits. Adrenal Glands: No adrenal nodules. Stomach and Bowel: Normal colonic caliber, without significant wall thickening. No CT evidence of bowel obstruction Peritoneum: No abnormal intraperitoneal fluid. No free air. Ventral Wall: No hernia. Vessels: Aorta and inferior vena cava are normal in size. IMPRESSION: Right ureteral double-J stent with new mild dilatation of the calices and renal pelvis but without hydroureter and without gross CT evidence of ureteral calculus. Numerous nonobstructing right lower pole renal calculi are noted the largest measuring up to 8 mm x 7 mm x 6 mm similar to the prior exam. 2 mm nonobstructing left renal calculus inferior pole new compared to the prior exam. No left hydronephrosis, no hydroureter. Bladder is nondistended with a Bates catheter in place. Nonspecific wall thickening of the urinary bladder as discussed above. Pattern of constipation. New mildly enlarged mid abdominal mesenteric lymph nodes as discussed above. Dictated by: Wojciech Dominguez M.D. on 01/05/2024 at 10:59 Approved by: Wojciech Dominguez M.D. on 01/05/2024 at 11:17
== END ==
PROVIDERS: Family Provider Family Medicine; PCP Family Medicine; Referring Provider Urology; Visit Provider Urology
DX: N20.0 Calculus of kidney (principal); I70.0 Atherosclerosis of aorta; R59.0 Localized enlarged lymph nodes; Z96.0 Presence of urogenital implants; Z96.643 Presence of artificial hip joint, bilateral
CPT/HCPCS: 74176

== ENCOUNTER → 2024-01-06 14:50 | Outpatient (CLI) | payer MEDICARE, OTHER, SELFPAY ==
[2023-09-08 14:41] VITALS: BMI 42.2
== END ==
PROVIDERS: Family Provider Family Medicine; PCP Family Medicine; Visit Provider Urology
DX: N20.0 Calculus of kidney (principal); N35.812 Other bulbous urethral stricture, male; R39.9 Unspecified symptoms and signs involving the genitourinary system; Z96.89 Presence of other specified functional implants; Z96.0 Presence of urogenital implants
CPT/HCPCS: 87077; 87086; 87186; 99214

== ENCOUNTER → 2024-01-14 11:50 | Outpatient (CLI) | payer MEDICARE, OTHER, SELFPAY ==
[2023-09-08 14:41] VITALS: BMI 42.2
== END ==
PROVIDERS: Family Provider Family Medicine; PCP Family Medicine; Visit Provider Urology
DX: R33.9 Retention of urine, unspecified (principal); N40.1 Benign prostatic hyperplasia with lower urinary tract symptoms
CPT/HCPCS: 87086

== ENCOUNTER 2024-01-26 07:21 | Day surgery (SDC) | payer MEDICARE, OTHER, SELFPAY ==
[2023-09-08 14:41] VITALS: BMI 42.2
--- NOTE | 2024-01-21 13:48 | P.PN_ITS ---
Subjective Subjective Interval history: 78yo male had a cysto with ureteral stent dilation on 12/29/23. He wrote a letter to the hospital on 01/06/24 stating he had severe muscle pain for several days postop. Of note, his Allergies include Cipro, which caused muscle pain. For the procedure on 12/28, he received Ancef for antibiotics and he received succinylcholine. I suspect the muscle pains are due to the succinylcholine, so I have listed this in patient's chart as an adverse reaction. [facility] Medical History (Updated 01/14/24 @ 12:13 by Rakan Christensen MD) Urinary tract infection Urethral stricture S/P extracorporeal shock wave therapy (12/16/22) S/P extracorporeal shock wave therapy (05/26/23) Pulmonary embolism Diabetes Fall (08/04/22) History of COVID-19 (10/12/23) Incomplete emptying of bladder Benign prostatic hyperplasia with lower urinary tract symptoms Lumbar foraminal stenosis Lumbar spondylosis Low back pain Thoracic back pain Thoracic spondylosis Lower urinary tract symptoms Retained ureteral stent Chronic back pain Chronic, continuous use of opioids Left ureteral calculus Right renal stone History of kidney stones History of high blood pressure Hx of diabetes mellitus History of depression History of COPD History of asthma BPPV (benign paroxysmal positional vertigo) Obesity (BMI 30-39.9) Central stenosis of spinal canal Osteoarthritis Rheumatoid arthritis Excessive daytime sleepiness Insomnia, persistent Obstructive sleep apnea of adult Surgical History Hx of surgical procedure History of implantation of penile prosthesis History of hip replacement Family History Father Hypertension Diabetes mellitus CAD (coronary artery disease) Mother Diabetes mellitus Hypertension Social History marital status: household members: none lives independently: Yes caregiver/support person: No housing: house occupational status: previously employed Smoking Status: Former smoker alcohol intake: never substance use type: does not use during the past year weight has: remained stable caffeine: Yes Type(s) of exercise: none and restricted ROM & activity Assessment & Plan Time-Based Coding :: [TOTAL MINUTES] spent with patient and on the chart (including review of chart, obtaining history, exam, reviewing outside data, placing orders, documenting exam and treatment plan, and counseling patient) on [DATE].
[2024-01-25 11:28] VITALS: BMI 37.5
[2024-01-26] VITALS (13 sets, daily range): BP systolic 117–161; BP diastolic 59–88; PULSE 52–77; RESP 14–20; TEMP 36.1–37.6; O2SAT 89–97; BMI 36.8
--- NOTE | 2024-01-26 | DI.RAD.S_ITS ---
PROCEDURE: XR CHEST 1V INDICATIONS: poor oxygenation TECHNIQUE: One view of the chest was acquired. COMPARISON: None. FINDINGS: Surgical changes and devices: None. Lungs and pleura: Patchy bibasilar opacities, left greater than right. Mediastinum: Mediastinal contours appear normal. Heart size is normal. Bones and chest wall: No suspicious bony lesions. Overlying soft tissues appear unremarkable. IMPRESSION: Patchy bibasilar opacities appearing consistent with pneumonia. Dictated by: Radha Bowman M.D. on 01/26/2024 at 13:59 Approved by: Radha Bowman M.D. on 01/26/2024 at 14:00
--- NOTE | 2024-01-26 08:01 | PM.PREOP ---
Pre-operative Note COVID-19 COVID-19 status: Not tested Interval Note History & Physical reviewed/Exam performed by Physician: Yes Changes to H&P: No
[2024-01-26] MEDS: LACTATED RINGERS 1,000 ML 42 ML IV ×2 (08:04→10:08)
--- NOTE | 2024-01-26 08:24 | SUR.OPER ---
Lithotomy on ESWL Table, head on pillow, arms secured on padded arm boards at <90 degrees abduction. Legs secured in padded yellow fins stirrups.
--- NOTE | 2024-01-26 09:33 | PM.OP.1 ---
Procedure & Clinicians Procedure: Right extracorporeal shockwave lithotripsy, cystolitholapaxy/De encrustation of right ureteral stent, removal of right ureteral stent and placement of right ureteral stent. Same procedure as scheduled: Yes Indications: This 78-year-old male was undergoing treatment for his right-sided stone/stones. And had a rather complicated situation where he would developed urethral stricture has a penile prosthesis had have the stricture dilated in at that time was noted to have massive encrustation of the distal part of his stent. Imaging was obtained which shows encrustation of the proximal or renal portion of the stent. He presents this time for extracorporeal shockwave lithotripsy 2D encrusted the upper part of the stent and then mechanical cystolitholapaxy/D encrustation of the distal part of the stent with removal of the old stent and placement of new right ureteral stent. Surgeon: Rakan Christensen Click Yes if Unassisted: Yes Anesthesia Type: General Operative Notes Findings: Findings: Asked to cystoscopy penile prosthesis was in place, the urethra showed evidence of stricture well healed and widely patent. Prostatic fossa showed moderate approaching severe obstructive character. The stent was in the right ureteral orifice which has significant amount of bullous edema and a massive amount of encrustation. The proximal end of the stent also at lithotripsy showed massive encrustation and received 3000 shocks at level 7 appearing to dissipate the large amount of encrustation. The stent was then easily removed after the encrustation had been treated by lithotripsy in the proximal portion and mechanical removal in the bladder. New stent was put in place which was a 7 Danish multi length stent no string was left in place. No other abnormalities were noted. And at fluoroscopy did not specifically see any other stones in the kidney. Closure Type: not applicable Specimen(s): other (Stone fragments) Prosthetic devices, grafts, tissues, transplants, or devices: 7 Danish by multi length stent in the right collecting system no string Blood products transfused: none Procedure in detail: Procedure in detail: After informed consent was obtained, the patient was identified and brought to the operating room where he is placed in a supine position on the Lithotripter. Once there anesthesia was induced and maintained. After ensuring an adequate level of anesthesia, time-out and administration of IV antibiotics the stone encrusted stent in the renal pelvis was positioned and targeted be the imaging system. Shockwave were then delivered up to level 7 for a total of 3000 shocks with periodic reimaging and re localization to ensure that all of the stone encrusting the stent was treated. At 3000 shock waves the shockwave head was rotated out fluoroscopy performed and the encrustations appeared to have been broken up. At this point the patient was transitioned to the lithotomy position where he was prepped, draped in his sterile fashion. After prepping and draping and once again ensuring an adequate level of anesthesia a 22 Danish cystoscope was easily passed through the urethra and into the bladder. There using the mechanical lithotrite the encrustation was taken off of the stone. Then with live fluoro visualizing the upper portion of the stent it was removed and straightened out quite easily. Note prior to the breaking of the encrustation a guidewire had been passed up into the collecting system as a safety wire. This wire was now backloaded after the stent removal through the cystoscope which was inserted and the new stent passed over the wire positioned in the renal pelvis under fluoroscopic visualization of the bladder under direct vision with the stent in good position the wire was removed the nylon harness was removed in the stent was left in good position. The stone fragments were then evacuated collected and sent for compositional analysis. With these in place the bladder drained the scope removed in the stent in good position the patient was awakened taken to the postanesthesia care unit having tolerated the procedure well. There were no complications. Patient will recover in the postanesthesia care unit and then be discharged to home to follow up my office in approximately 14 days with a KUB. Complications: none Post-operative Condition: stable Disposition: PACU Plan for aftercare: Discharged to home patient to strain his urine to follow up my office in 14 days with a KUB.
[2024-01-26] MEDS: ALBUTEROL 2.5 MG/3 ML NEB (ADULT) INH (10:36)
[2024-01-26 12:47] LABS: Hematocrit 44.6 % (41-53); Hemoglobin 14.9 g/dL (13.5-17.5); Mean Corpuscular HGB Conc 33.5 % (30-36); Mean Corpuscular Hemoglobin 32.4 PG (26-34); Mean Corpuscular Volume 96.8 fL (80-100); Platelet Count 267 X10^3/uL (150-400); Red Cell Distribution Width 14.4 % (11.6-14.8); White Blood Cell Count 12.8 X10^3/uL (4.5-11.0)
--- NOTE | 2024-01-26 12:56 | EKG_ITS ---
[address] [address] Test Date: 2024-01-26 Pat Name: Rodolfo Washington Department: Room: Gender: Male [employer] Consultant: Heather NAQVI : 1945 Requested By: Order Number: [id number] Reading MD: Buzz Vidales Measurements Intervals Union Rate: 69 P: 62 TX: 168 QRS: 6 QRSD: 94 T: -28 QT: 430 QTc: 460 Interpretive Statements Sinus rhythm with frequent premature ventricular complexes Nonspecific T wave abnormality Prolonged QT Electronically Signed On 01-27-2024 18:07:03 PDT by Buzz Vidales
--- NOTE | 2024-01-26 12:56 | SUR.PHASEII ---
Jacobo couch. Can stay with patient tonight if needed.
[2024-01-26 13:00] LABS: BUN Creatinine Ratio 13.9 (6-22); Blood Urea Nitrogen 11 mg/dL (9-20); Calcium 8.9 mg/dL (8.4-10.2); Carbon Dioxide 29 mmol/L (22-32); Chloride 100 mmol/L (98-107); Estimated Glomerular Filt Rate > 60 mL/min (>60); Glucose 144 mg/dL (80-110); HEMOLYSIS 19 (0-50); Potassium 4.7 mmol/L (3.4-5.1); Sodium 138 mmol/L (137-145)
[2024-01-26 13:10] LABS: NT-proBNP (BNP-Adult 18+) 328 pg/mL (<450)
[2024-01-26 13:11] LABS: Troponin I < 0.012 ng/mL (0.01-0.034)
--- NOTE | 2024-01-26 13:53 | PM.CALLCOV.1 ---
Call Coverage Note Note Date of Patient Contact: 01/26/24 Time of Patient Contact: 13:00 Narrative of Care Provided: 78 year old male with PMH of COPD, DEVORAH, CAD w/ cardiomyopathy. Called by anesthesia for possible observation admission. Patient was on supplemental oxygen. CXR without volume overload. Troponin negative, Probnp normal. Patient is currently asymptomatic without wheezing, shortness of breath, or chest pain. O2 monitor showed poor wave-form on the fingers. When an ear monitor was placed, O2 saturations were between 90-92% on room air. No admission recommended at this time.
--- NOTE | 2024-01-26 14:24 | SUR.PHASEII ---
Pt DC home after amb to [facility]. Eating lunch and denying SOB. Pt with Incentive Spirometer which pt was able to use indep. and instructions to use 1-2 times an hour and to use CPAP for all naps and at night. Pt verbalized instructions which were also reviewed with son otoniel Jones on phone.
== END 2024-01-26 14:18 | disposition home or self-care (01) ==
PROVIDERS: Internal Medicine; Nurse Anesthetist, Certified Registered; Family Provider Family Medicine; PCP Family Medicine; Referring Provider Urology; Visit Provider Urology
PROC: (CPT 50590; principal; 2024-01-26 09:15)
DX: N23 Unspecified renal colic (principal); T83.89XA Other specified complication of genitourinary prosthetic devices, implants and grafts, initial encounter; I10 Essential (primary) hypertension; G47.33 Obstructive sleep apnea (adult) (pediatric); J44.9 Chronic obstructive pulmonary disease, unspecified; N40.1 Benign prostatic hyperplasia with lower urinary tract symptoms; R33.9 Retention of urine, unspecified; E66.9 Obesity, unspecified; Z68.38 Body mass index [BMI] 38.0-38.9, adult; Z79.84 Long term (current) use of oral hypoglycemic drugs
CPT/HCPCS: 50590; 52332; 71045; 80048; 82365; 82962; 83880; 84484; 85027; 93005; J0330; J0713; J2310; J2405; J2704; J3010; J7613

== ENCOUNTER 2024-01-27 17:04 | Emergency (ER) | payer MEDICARE, OTHER, SELFPAY ==
[2023-09-08 14:41] VITALS: BMI 42.2
[2024-01-27] VITALS (7 sets, daily range): BP systolic 124–140; BP diastolic 57–65; PULSE 66–87; RESP 16–20; TEMP 36.7; O2SAT 89–90; BMI 36.8
--- NOTE | 2024-01-27 18:13 | DI.RAD.S_ITS ---
PROCEDURE: XR CHEST 1V INDICATIONS: eval for PNA TECHNIQUE: One view of the chest was acquired. COMPARISON: [facility], , XR CHEST 1V, 01/26/2024, 12:37. FINDINGS: Surgical changes and devices: None. Lungs and pleura: Patchy bibasilar opacities appear mildly less prominent when compared to the exam from the day prior. No pleural effusion or pneumothorax. Mediastinum: Mediastinal contours appear normal. Heart size is normal. Bones and chest wall: No suspicious bony lesions. Overlying soft tissues appear unremarkable. IMPRESSION: Patchy bibasilar opacities appear mildly improved. Approved by: Herminio Jennings M.D. on 01/27/2024 at 20:05
[2024-01-27 18:20] LABS: Add Manual Diff / Slide Review NO; Basophils Absolute Auto 0 /uL (0-100); Basophils Percent Auto 0.3 % (0-2); Eosinophils Absolute Auto 0 /uL (0-450); Hematocrit 44.5 % (41-53); Hemoglobin 14.7 g/dL (13.5-17.5); Lymphocytes Absolute Auto 1800 /uL (1100-4500); Lymphocytes Percent Auto 13.8 % (25-40); Mean Corpuscular Hemoglobin 32.5 PG (26-34); Mean Corpuscular Volume 98.4 fL (80-100); Monocytes Absolute Auto 1000 /uL (0-900); Monocytes Percent Auto 7.5 % (3-14); Neutrophils Absolute Auto 10300 /uL (1500-7000); Neutrophils Percent Auto 78.4 % (50-75); Platelet Count 204 X10^3/uL (150-400); Red Blood Cell Count 4.52 X10^6/uL (4.5-5.9); Red Cell Distribution Width 14.5 % (11.6-14.8); White Blood Cell Count 13.1 X10^3/uL (4.5-11.0)
[2024-01-27 18:26] LABS: Albumin 4.3 g/dL (3.5-5.0); Albumin Globulin Ratio 1.3 (1.0-2.8); Alkaline Phosphatase 60 U/L (38-126); BUN Creatinine Ratio 14.5 (6-22); Bilirubin Total 1.1 mg/dL (0.2-1.3); Blood Urea Nitrogen 19 mg/dL (9-20); Carbon Dioxide 28 mmol/L (22-32); Chloride 95 mmol/L (98-107); Estimated Glomerular Filt Rate 55 mL/min (>60); Globulin 3.3 g/dL (1.7-4.1); Glucose 180 mg/dL (80-110); HEMOLYSIS < 15 (0-50); Lipase 50 U/L (23-300); Sodium 134 mmol/L (137-145); Total Protein 7.6 g/dL (6.3-8.2)
[2024-01-27 18:39] LABS: Alanine Aminotransferase 906 IU/L (<50); Aspartate Aminotransferase 1256 IU/L (17-59); Potassium 5.7 mmol/L (3.4-5.1)
[2024-01-27 19:29] LABS: COVID-19 CEPHEID 4-PLEX PCR Negative (Negative); Influenza A - CEPHEID Flu A NEGATIVE (NEGATIVE); Influenza B - CEPHEID Flu B NEGATIVE (NEGATIVE); Respiratory Syncytial Virus Negative (Negative)
--- NOTE | 2024-01-27 20:08 | PC.NURSE ---
Pt awake and alert sitting in Ed stretcher speaking with son. No distress noted at this time. Pt assisted to side of bed and standing for urine sample without difficulty.
[2024-01-27 20:12] LABS: Appearance Urine UA CLOUDY; Bilirubin Urine UA 1+ (NEGATIVE); Color Urine UA BROWN; Glucose Urine UA NEGATIVE (Negative); Ketones Urine UA NEGATIVE (NEGATIVE); Leukocyte Esterase Urine UA TRACE (NEGATIVE); Nitrite Urine UA NEGATIVE (Negative); Occult Blood Urine UA 3+ (Negative); Protein Urine UA 3+ (Negative); Specific Gravity Urine UA >=1.030 (1.000-1.035); Urobilinogen Urine UA 0.2 E.U./dL (0.2); pH Urine UA 5.5 (4.5-8.0)
[2024-01-27 20:20] LABS: Amorphous Sediment Urine 1+; Bacteria Urine Few (2-10); RBC Urine 10-30/HPF (0-5/HPF); Squamous Epithelial Cell Urine 0-1 /HPF (0-5/HPF); Urine Volume 10mL (spun); WBC Urine 5-10/HPF (0-5/HPF)
[2024-01-27 20:23] LABS: Ictotest Urine Negative (Negative)
--- NOTE | 2024-01-27 21:02 | ED_ITS ---
HPI - Recheck/Abnormal Lab/Rx General Chief Complaint: Recheck/Abnormal Lab/Rx Stated Complaint: Body Pain Time Seen by Provider: 01/27/24 17:42 Source: patient Mode of arrival: EMS History of Present Illness HPI narrative: Patient is an 78-year-old male who recently had a procedure performed by Urology where he had a stent placement and lithotripsy. He states that earlier today he had a several hour episode where he became very fatigued and weak and could not sit up from the bed. At the time of my evaluation he states he was feeling much better. Is ambulatory. Is tolerating oral intake. No fevers. He was currently on antibiotics. The procedure he just recently had was actually a 2nd procedure. He stated that after his 1st procedure he had a very similar episode has to what he had today where he became very weak and basically was unable to move. There was some question that maybe this is related to the anesthesia however he has not had anesthesia for more than 48 hours in the event just occurred today. No belly pain. He was urinating. No vomiting. No chest pain or shortness of breath. Related Data Home Medications Medication Instructions Recorded Confirmed Resmed Airsense 10 Auto CPAP #1 ea 04/28/18 01/14/24 aspirin 81 mg chewable tablet 81 mg PO DAILY 08/08/22 01/26/24 atorvastatin 20 mg tablet 20 mg PO DAILY 08/08/22 01/26/24 furosemide 40 mg tablet 40 mg PO DAILY 08/08/22 01/26/24 glipizide 2.5 mg tablet, extended 2.5 mg PO DAILY 08/08/22 01/26/24 release 24 hr infliximab 100 mg intravenous 100 mg IV Q6W 08/08/22 01/26/24 solution (Remicade) metformin 500 mg tablet 500 mg PO BID 08/08/22 01/26/24 methotrexate sodium 10 mg tablet 10 mg PO QWEEK 08/08/22 01/14/24 montelukast 4 mg chewable tablet 4 mg PO DAILY 08/08/22 01/14/24 spironolactone 25 mg tablet 12.5 mg PO DAILY 08/08/22 01/14/24 folic acid 1 mg tablet 1 mg PO DAILY 10/28/22 01/26/24 fentanyl 25 mcg/hr transdermal 1 patch transdermal Q72H 05/15/23 01/26/24 patch metoprolol succinate 50 mg 50 mg PO DAILY 05/18/23 01/14/24 tablet,extended release 24 hr amlodipine 10 mg tablet 10 mg PO DAILY 05/26/23 01/14/24 metoprolol succinate 50 mg 50 mg PO DAILY 12/29/23 01/26/24 tablet,extended release 24 hr Previous Rx's Medication Instructions Recorded cefdinir 300 mg capsule 300 mg PO BID #30 caps 01/13/24 Allergies Allergy/AdvReac Type Severity Reaction Status Date / Time ciprofloxacin [From Cipro] AdvReac Severe Muscle Pain Verified 01/26/24 07:35 succinylcholine AdvReac Severe Muscle Pain Verified 01/26/24 07:35 Review of Systems Review of Systems ROS Unobtainable: All systems reviewed & are unremarkable except as noted in HPI and below Patient History Medical History Urinary tract infection Urethral stricture S/P extracorporeal shock wave therapy (12/16/22) S/P extracorporeal shock wave therapy (05/26/23) Pulmonary embolism Diabetes Fall (08/04/22) History of COVID-19 (10/12/23) Incomplete emptying of bladder Benign prostatic hyperplasia with lower urinary tract symptoms Lumbar foraminal stenosis Lumbar spondylosis Low back pain Thoracic back pain Thoracic spondylosis Lower urinary tract symptoms Retained ureteral stent Chronic back pain Chronic, continuous use of opioids Left ureteral calculus Right renal stone History of kidney stones History of high blood pressure Hx of diabetes mellitus History of depression History of COPD History of asthma BPPV (benign paroxysmal positional vertigo) Obesity (BMI 30-39.9) Central stenosis of spinal canal Osteoarthritis Rheumatoid arthritis Excessive daytime sleepiness Insomnia, persistent Obstructive sleep apnea of adult Surgical History Hx of surgical procedure History of implantation of penile prosthesis History of hip replacement Family History Father Hypertension Diabetes mellitus CAD (coronary artery disease) Mother Diabetes mellitus Hypertension Social History marital status: household members: family and none lives independently: Yes caregiver/support person: No housing: house occupational status: previously employed Smoking Status: Former smoker alcohol intake: never substance use type: does not use during the past year weight has: remained stable caffeine: Yes Type(s) of exercise: none and restricted ROM & activity Smoking Status: Former smoker alcohol intake frequency: holidays/special occasions only Substance Use Type: does not use, opiates, painkillers and prescription drug Exam Initial Vital Signs Initial Vital Signs: Vital Signs Temperature 98.1 F 01/27/24 17:10 Pulse Rate 87 01/27/24 17:10 Respiratory Rate 16 01/27/24 17:10 Blood Pressure 126/60 01/27/24 17:10 Pulse Oximetry 89 L 01/27/24 17:10 Oxygen Delivery Method Room Air 01/27/24 17:10 Const General: cooperative, comfortable and No ill appearing HENMT Head: normal to inspection and normocephalic Resp Effort & Inspection: normal respiratory effort Auscultation: clear to auscultation bilaterally Cardio Rate: regular rate Rhythm: regular rhythm Skin General: no rashes or lesions noted Neuro General: patient alert, patient awake, patient oriented x3 and moves all extremities Extrem General: capillary refill normal Course Orders Ordered: ED Orders 01/27/24 17:38 Complete Blood Count AUTO DIFF Stat Comprehensive Metabolic Panel Stat Lipase Stat 01/27/24 18:13 XR chest 1V Stat 01/27/24 18:35 Covid-19 + FLU A/B + RSV - PCR Stat 01/27/24 19:35 Ictotest Urine Stat Urinalysis and Microscopic Stat Urine Culture Stat Vital Signs Vital signs: Vital Signs - 8 hr 01/27/24 17:11 01/27/24 17:11 01/27/24 17:30 Pulse Rate 87 Respiratory Rate Blood Pressure 124/60 130/63 Pulse Oximetry 89 L 01/27/24 17:30 01/27/24 18:00 01/27/24 18:00 Pulse Rate 70 66 Respiratory Rate Blood Pressure 127/57 L Pulse Oximetry 90 L 90 L 01/27/24 18:31 01/27/24 19:26 01/27/24 19:26 Pulse Rate 66 Respiratory Rate 20 Blood Pressure 134/63 133/64 Pulse Oximetry 90 L 01/27/24 22:10 Pulse Rate 66 Respiratory Rate 18 Blood Pressure 140/65 Pulse Oximetry 90 L MDM - Recheck/Abnormal Lab/Rx Medical Records Attestation: I reviewed the patient's medical records. Lab Data Attestation: I reviewed the patient's lab results. 01/27/24 17:38 01/27/24 17:38 Labs: Lab Results 01/27/24 01/27/24 01/27/24 Range/Units 17:38 18:35 19:35 WBC 13.1 H (4.5-11.0) X10^3/uL RBC 4.52 (4.5-5.9) X10^6/uL Hgb 14.7 (13.5-17.5) g/dL Hct 44.5 (41-53) % MCV 98.4 (80-100) fL MCH 32.5 (26-34) PG MCHC 33.0 (30-36) % RDW 14.5 (11.6-14.8) % Plt Count 204 (150-400) X10^3/uL Neut % (Auto) 78.4 H (50-75) % Lymph % (Auto) 13.8 L (25-40) % Bertie % (Auto) 7.5 (3-14) % Eos % (Auto) 0.0 L (2-4) % Baso % (Auto) 0.3 (0-2) % Neut # (Auto) 81503 H (5099-8664) /uL Lymph # (Auto) 1800 (8103-9043) /uL Bertie # (Auto) 1000 H (0-900) /uL Eos # (Auto) 0 (0-450) /uL Baso # (Auto) 0 (0-100) /uL Sodium 134 L (137-145) mmol/L Potassium 5.7 H (3.4-5.1) mmol/L Chloride 95 L (98-107) mmol/L Carbon Dioxide 28 (22-32) mmol/L BUN 19 (9-20) mg/dL Creatinine 1.31 H (0.66-1.25) mg/dL Estimated GFR 55 L (>60) mL/min BUN/Creatinine Ratio 14.5 (6-22) Glucose 180 H (80-110) mg/dL Calcium 9.0 (8.4-10.2) mg/dL Total Bilirubin 1.1 (0.2-1.3) mg/dL AST 1256 H (17-59) IU/L ALT 906 H (<50) IU/L Alkaline Phosphatase 60 (38-126) U/L Total Protein 7.6 (6.3-8.2) g/dL Albumin 4.3 (3.5-5.0) g/dL Globulin 3.3 (1.7-4.1) g/dL Albumin/Globulin Ratio 1.3 (1.0-2.8) Lipase 50 (23-300) U/L Urine Color Brown Urine Appearance Cloudy Urine pH 5.5 (4.5-8.0) Ur Specific Glover >=1.030 H (1.000-1.035) Urine Protein 3+ H (Negative) Urine Glucose (UA) Negative (Negative) g/dL Urine Ketones Negative (NEGATIVE) Urine Occult Blood 3+ H (Negative) Urine Nitrate Negative (Negative) Urine Bilirubin 1+ H (NEGATIVE) Ur Bilirubin Confirm Negative (Negative) Urine Urobilinogen 0.2 (0.2) E.U./dL Ur Leukocyte Esterase Trace H (NEGATIVE) Urine RBC 10-30/hpf H (0-5/HPF) Urine WBC 5-10/hpf H (0-5/HPF) Ur Squamous Epith Cells 0-1 /hpf (0-5/HPF) Amorphous Sediment 1+ Urine Bacteria Few (2-10) H (None) Vol Urine Centrifuged 10ml (spun) SARS-CoV-2 (PCR) Negative (Negative) Influenza A (RT-PCR) Flu a negative (NEGATIVE) Influenza B (RT-PCR) Flu b negative (NEGATIVE) RSV (PCR) Negative (Negative) Imaging Data Chest x-ray: Radiologist's Impression: PROCEDURE: XR CHEST 1V INDICATIONS: eval for PNA TECHNIQUE: One view of the chest was acquired. COMPARISON: [facility], , XR CHEST 1V, 01/26/2024, 12:37. FINDINGS: Surgical changes and devices: None. Lungs and pleura: Patchy bibasilar opacities appear mildly less prominent when compared to the exam from the day prior. No pleural effusion or pneumothorax. Mediastinum: Mediastinal contours appear normal. Heart size is normal. Bones and chest wall: No suspicious bony lesions. Overlying soft tissues appear unremarkable. IMPRESSION: Patchy bibasilar opacities appear mildly improved. MDM Narrative Medical decision making narrative: With the time I had evaluated the patient he stated that he was feeling much better. He was alert and oriented x3. Is afebrile. Tolerating oral intake. Walking at baseline. The event that occurred today lasted several hours and what he describes as almost a catatonic like stay where he could not move her could not sit up. He was breathing normal. He states that a very similar thing happened during his last procedure and there were some questions whether not this was anesthesia. I am unsure as to whether not it was related to the anesthesia as he was not had any anesthesia in at least 48 hours in the symptoms just occurred today and are now resolved. He was currently on antibiotics. He does have a leukocytosis and a urinalysis that potentially could be concerning for an infection but he was on antibiotics prescribed by his urologist. We will hold on changing any of that for now. He was nontoxic appearing. Plan will be to discharge home since his symptoms have now resolved and he feels better and clinically looks well. Will have him keep all of his scheduled follow-up appointments. He was given return precautions. He expressed understanding and agreement. Discharge Plan Departure Patient Disposition: Home Clinical Impression: Body aches, Muscle weakness Activity Restrictions/Additional Instructions: Recommend that you continue all of your medications in the postprocedure instructions given to you by Dr. Christensen. Tomorrow contact your office for a follow-up. Return to the emergency department for new or worsening symptoms. Prescriptions: No Action cefdinir 300 mg capsule 300 mg PO BID Qty: 30 0RF aspirin 81 mg Tablet,Chewable 81 mg PO DAILY atorvastatin 20 mg Tablet 20 mg PO DAILY furosemide 40 mg Tablet 40 mg PO DAILY metformin 500 mg Tablet 500 mg PO BID methotrexate sodium 10 mg Tablet 10 mg PO QWEEK montelukast 4 mg Tablet,Chewable 4 mg PO DAILY spironolactone 25 mg Tablet 12.5 mg PO DAILY glipizide 2.5 mg Tablet Extended Release 24hr 2.5 mg PO DAILY infliximab [Remicade] 100 mg Recon Soln 100 mg IV Q6W amlodipine 10 mg tablet 10 mg PO DAILY metoprolol succinate 50 mg tablet extended release 24 hr 50 mg PO DAILY metoprolol succinate 50 mg tablet extended release 24 hr 50 mg PO DAILY (DME) Resmed Airsense 10 Auto CPAP aerosol Qty: 1 Dose Instruction: As directed Patient Comments: Pressure: 8-12 cmH2O DME: [facility] Rx Instructions: As directed folic acid 1 mg tablet 1 mg PO DAILY Patient Comments: 6 days a week Rx Instructions: takes 6 days per week-does not take with methotrexate. fentanyl 25 mcg/hr patch 72 hour 1 patch transdermal Q72H Referrals: Buzz Mills MD [Primary Care Provider] - Stand Alone Forms: Patient Portal/API
--- NOTE | 2024-01-27 21:04 | PC.NURSE ---
Water provided per provider
--- NOTE | 2024-01-27 21:27 | PC.NURSE ---
Patient ambulated well with a walker approx 25 yards. He has a steady and strong gait and did not complain of SOB, dizziness, lightheadedness. He did say he was having tailbone pain. back pain, and chest pain with coughing.
== END 2024-01-27 22:19 | disposition home or self-care (01) ==
PROVIDERS: Emergency Provider Emergency Medicine; Family Provider Family Medicine; PCP Family Medicine
DX: M62.81 Muscle weakness (generalized) (principal); R52 Pain, unspecified; Z79.899 Other long term (current) drug therapy; Z11.52 Encounter for screening for COVID-19
CPT/HCPCS: 0241U; 36415; 71045; 80053; 81001; 83690; 85025; 87086; 99284

== ENCOUNTER → 2024-02-15 11:46 | Outpatient (CLI) | payer MEDICARE, OTHER, SELFPAY ==
[2023-09-08 14:41] VITALS: BMI 42.2
--- NOTE | 2024-02-15 11:47 | DI.RAD.S_ITS ---
PROCEDURE: XR KUB INDICATIONS: Kidney stones - post lithotripsy. TECHNIQUE: One view of the abdomen acquired. COMPARISON: [facility], CR, XR KUB, 10/27/2023, 13:42. FINDINGS: Stool gas pattern: Mild ileus noted.. No free intraperitoneal or extraperitoneal air. No gross evidence of ascites Soft tissues: No soft tissue masses. Right ureteral stent is seen in the expected location. No stones identified. Organs: No gross evidence for organomegaly. IMPRESSION: Mild ileus. No definite stone or stone fragments identified. Slightly underpenetrated film limits sensitivity for stone detection Dictated by: Feliz Leonardo M.D. on 02/16/2024 at 10:14 Approved by: Feliz Leonardo M.D. on 02/16/2024 at 10:15
== END ==
PROVIDERS: Family Provider Family Medicine; PCP Family Medicine; Referring Provider Urology; Visit Provider Urology
DX: K56.7 Ileus, unspecified (principal); Z87.442 Personal history of urinary calculi; Z96.0 Presence of urogenital implants
CPT/HCPCS: 74018

== ENCOUNTER → 2024-02-15 13:19 | Outpatient (CLI) | payer MEDICARE, OTHER, SELFPAY ==
[2023-09-08 14:41] VITALS: BMI 42.2
[2024-02-20 11:10] LABS: Ca oxalate dihydrate 20 % (.); Ca oxalate monohydr 80 % (.); Size 8x3 mm (.)
== END ==
PROVIDERS: Family Provider Family Medicine; PCP Family Medicine; Visit Provider Urology
DX: N39.0 Urinary tract infection, site not specified (principal); T83.511A Infection and inflammatory reaction due to indwelling urethral catheter, initial encounter; N20.0 Calculus of kidney; K56.7 Ileus, unspecified; Z87.442 Personal history of urinary calculi; Z96.0 Presence of urogenital implants; Z96.89 Presence of other specified functional implants
CPT/HCPCS: 74018; 81002; 82365; 87086

== ENCOUNTER → 2024-02-19 09:55 | Outpatient (CLI) | payer MEDICARE, OTHER, SELFPAY ==
[2023-09-08 14:41] VITALS: BMI 42.2
== END ==
PROVIDERS: Family Provider Family Medicine; PCP Family Medicine; Visit Provider Urology
DX: N40.1 Benign prostatic hyperplasia with lower urinary tract symptoms (principal); R39.9 Unspecified symptoms and signs involving the genitourinary system; Z68.36 Body mass index [BMI] 36.0-36.9, adult; N20.0 Calculus of kidney
CPT/HCPCS: 52310; 87086

== ENCOUNTER → 2024-02-25 12:00 | Outpatient (CLI) | payer MEDICARE, OTHER, SELFPAY ==
[2023-09-08 14:41] VITALS: BMI 42.2
[2024-02-25 13:50] LABS: Phosphorous 3.4 mg/dL (2.3-3.7); Uric Acid 8.6 mg/dL (3.5-8.5)
[2024-02-26 19:38] LABS: Calcium 9.3 mg/dL (8.6-10.2); Parathyroid Hormone, Intact 61 pg/mL (15-65)
== END ==
PROVIDERS: Family Provider Family Medicine; PCP Family Medicine; Referring Provider Urology; Visit Provider Urology
DX: N20.0 Calculus of kidney (principal); N35.919 Unspecified urethral stricture, male, unspecified site; N35.812 Other bulbous urethral stricture, male; N39.0 Urinary tract infection, site not specified; Z68.37 Body mass index [BMI] 37.0-37.9, adult
CPT/HCPCS: 36415; 81002; 82310; 83970; 84100; 84550; 99213

== ENCOUNTER → 2024-11-16 09:50 | Outpatient (CLI) | payer MEDICARE, OTHER, SELFPAY ==
[2023-09-08 14:41] VITALS: BMI 42.2
--- NOTE | 2024-11-16 09:52 | DI.RAD.S_ITS ---
PROCEDURE: XR KUB INDICATIONS: Rule out recurrent stones TECHNIQUE: One view of the abdomen acquired. COMPARISON: [facility], CR, XR KUB, 02/15/2024, 11:46. FINDINGS: Surgical changes and devices: Bilateral total hip arthroplasty visualized. Penile prosthesis noted. Bowel: Bowel gas pattern is nonobstructive. Soft tissues: No suspicious abdominal calcifications. Visualized solid organ contours appear normal in size. No calcifications noted over the bilateral renal shadows or expected course of the ureters on either side. Bones: No suspicious bony lesions. IMPRESSION: No acute abnormality. No radiographic evidence to suggest nephrolithiasis/urolithiasis. Dictated by: Jermaine Henao M.D. on 11/16/2024 at 15:44 Approved by: Jermaine Henao M.D. on 11/16/2024 at 15:47
== END ==
PROVIDERS: Family Provider Family Medicine; PCP Family Medicine; Referring Provider Urology; Visit Provider Urology
DX: Z87.442 Personal history of urinary calculi (principal); Z96.643 Presence of artificial hip joint, bilateral; Z96.0 Presence of urogenital implants; R39.9 Unspecified symptoms and signs involving the genitourinary system; Z68.37 Body mass index [BMI] 37.0-37.9, adult
CPT/HCPCS: 74018; 81002; 99213